=== PATIENT | female | born 1995 | race Caucasian/White ===

== ENCOUNTER 2023-05-18 07:15 | Emergency (ER) | payer OTHER, SELFPAY ==
[2023-05-18 07:19] VITALS: BP 111/72; PULSE 71; RESP 18; TEMP 37.3; O2SAT 99; BMI 27.5
--- NOTE | 2023-05-18 07:40 | ED.EYEPROB1 ---
HPI - Eye Problem General Chief complaint: Eye Problems Stated complaint: VISION PROBLEMS/SWOLLEN FACE Time Seen by Provider: 05/18/23 07:19 Source: patient Mode of arrival: walk-in Limitations: no limitations History of Present Illness HPI Narrative: 27-year-old female presents to the emergency department for swelling around both eyes. No injury. It started this morning when she awoke. She has not been on any new medications or used any new products such as soaps or detergents. No eye drainage. She doesn't have any rash on her body elsewhere and no itching. Related Data Previous Rx's Medication Instructions Recorded prednisone 10 mg tablet See Rx Instructions .Route 05/18/23 .COMPLEX #18 tabs Allergies Allergy/AdvReac Type Severity Reaction Status Date / Time No Known Drug Allergies Allergy Verified 05/18/23 07:26 Review of Systems ROS Narrative A ten point review of systems is negative except as noted above. Exam Narrative Exam Narrative: Nurses note and vital signs reviewed and patient is not hypoxic. General: The patient appears well and in no apparent distress. Patient is resting comfortably on cart. Skin: Warm, dry, no pallor noted. There is no rash noted. Head: Normocephalic, atraumatic Eye: Normal conjunctiva, no drainage, she has bilateral periorbital edema. There is no erythema or open area or drainage. Tongue is not swollen. Ears, Nose, Mouth, and Throat: oral mucosa is moist. Nares patent. Cardiovascular: Regular Rate and Rhythm Respiratory: Patient is in no distress, no accessory muscle use, lungs are clear to auscultation, no wheezing, rales or rhonchi Back: non-tender GI: soft and nontender Musculoskeletal: The patient has no evidence of calf tenderness, no pitting edema, symmetrical pulses noted bilaterally Neurological: A&O, normal speech Psychiatric: Cooperative Constitutional Vital Signs, click to edit/add: Last Vital Signs Temp 99.2 F 05/18/23 07:19 Pulse 71 05/18/23 07:19 Resp 18 05/18/23 07:19 BP 111/72 05/18/23 07:19 Pulse Ox 99 05/18/23 07:19 Course Vital Signs Vital signs: Vital Signs Temperature 99.2 F 05/18/23 07:19 Pulse Rate 71 05/18/23 07:19 Respiratory Rate 18 05/18/23 07:19 Blood Pressure 111/72 05/18/23 07:19 Pulse Oximetry 99 05/18/23 07:19 Temperature 99.2 F 05/18/23 07:19 Pulse Rate 71 05/18/23 07:19 Respiratory Rate 18 05/18/23 07:19 Blood Pressure 111/72 05/18/23 07:19 Pulse Oximetry 99 05/18/23 07:19 MDM - Eye Problem MDM Narrative Medical decision making narrative: the patient is given IM Solu-Medrol and prescribed prednisone. She was given an ice pack as well. Treatment diagnosis and follow-up were discussed with the patient. Differential Diagnosis Differential diagnosis: Likely conjunctivitis, periorbital cellulitis and other (ALLERGIC reaction) Discharge Plan Discharge Chief Complaint: Eye Problems Clinical Impression: Allergic reaction Patient Disposition: Home, Self-Care Time of Disposition Decision: 07:38 Condition: Good Mode of Transportation: Private Vehicle Prescriptions / Home Meds: New prednisone 10 mg tablet See Rx Instructions .ROUTE .COMPLEX Qty: 18 0RF Rx Instructions: 3 by mouth daily for three days then 2 by mouth daily for three days then 1 by mouth daily for three days Instructions: General Allergic Reaction (ED) Additional Instructions: Ice packs and [id number] Benadryl Stand Alone Forms: Portal Instructions Referrals: VANCE OWUSU [Primary Care Provider] - 1 week
[2023-05-18] MEDS: METHYLPREDNISOLONE SOD SUCC PF 125 MG/2 ML VIAL IM (07:55)
== END 2023-05-18 07:59 | disposition home or self-care (01) ==
PROVIDERS: Emergency Provider Emergency Medicine; PCP Family Medicine
DX: T78.40XA Allergy, unspecified, initial encounter (principal)
CPT/HCPCS: 96372; 99284; J2930

== ENCOUNTER 2023-07-02 15:36 | Outpatient (OUT) | payer OTHER, SELFPAY ==
--- NOTE | 2023-07-02 15:53 | US_ITS ---
[address] [address] Patient Name: FRANK GARCIA MRN: [id number] date: 1995 Sex: F Assigned Patient Location: LAB Current Patient Location: Accession/Order Number: [id number] Exam Date: 07/02/2023 16:15 Report Date: 07/03/2023 07:41 At the request of: BRITTANY GUTIERRES Procedure: US pelvis w/ transvaginal EXAMINATION: US pelvis w/ transvaginal HISTORY: polycystic ovarian syndrome E28.2 ; left oophorectomy COMPARISON: No relevant comparison available. TECHNIQUE: Transabdominal and/or transvaginal sonographic examination was performed as indicated by examination type. FINDINGS: UTERUS: Normal size and appearance. Uterus size: 7.9 x 3.6 x 4.9 cm ENDOMETRIUM: Normal homogeneous appearance. Endometrial thickness: 8 mm RIGHT OVARY: Contains a 1.8 cm dominant follicle/simple cyst and a 1.5 cm hemorrhagic cysts versus hypoechoic mass. Duplex Doppler demonstrates normal waveform and flow; resistive index 0.5. Ovary size: 4.3 x 2.6 x 3.3 cm LEFT OVARY: Oophorectomy CUL-DE-SAC: Small amount of free fluid, likely physiologic. BLADDER: Unremarkable. OTHER: None. US/US pelvis w/ transvaginal IMPRESSION: 1. Unremarkable uterus. 2. No acute or overtly suspicious findings of the right ovary. Contains a simple cyst and what is suspected to represent a 1.5 cm hemorrhagic cyst. 3. Left oophorectomy. No suspicious adnexal findings. Electronically authenticated by: AISLINN PRAKASH Date: 07/03/2023 07:41
[2023-07-02 16:00] LABS: Basophils Percent Auto 0.1 % (0.2-2.0); Eosinophils Percent Auto 0.1 % (0.9-7.0); Hematocrit 34.8 % (36.0-48.0); Hemoglobin 11.7 g/dL (12.0-16.0); Immature Granulocytes Abs Auto 0.02 10^3/uL (0.00-0.03); Immature Granulocytes Pct Auto 0.2 % (0.0-0.5); Lymphocytes Absolute Auto 2.4 10^3/uL (1.2-3.8); Lymphocytes Percent Auto 27.6 % (20.5-60.0); Mean Corpuscular HGB Conc 33.6 g/dL (29.9-35.2); Mean Corpuscular Hemoglobin 30.2 pg (26.7-34.0); Mean Corpuscular Volume 89.7 fL (81.0-99.0); Mean Platelet Volume 9.6 fL (9.5-13.5); Monocytes Absolute Auto 0.6 10^3/uL (0.3-0.8); Monocytes Percent Auto 7.1 % (1.7-12.0); Neutrophils Absolute Auto 5.7 10^3/uL (1.4-6.5); Neutrophils Percent Auto 64.9 % (43.0-75.0); Platelet Count 263 10^3/uL (150-450); Red Blood Count 3.88 10^6/uL (4.20-5.40); Red Cell Distribution Width 11.9 % (11.0-15.0); White Blood Count 8.7 10^3/uL (4.0-11.0)
[2023-07-02 16:39] LABS: Estimated Average Glucose 103 mg/dL; Glycohemoglobin A1C 5.2 % (4.5-6.2)
[2023-07-02 16:43] LABS: Free T4 0.83 ng/dL (0.76-1.46)
[2023-07-02 16:48] LABS: HCG Quantitative <1 mIU/mL; Thyroid Stimulating Hormone 1.636 uIU/mL (0.358-3.740)
[2023-07-04 04:07] LABS: FSH 2.5 mIU/mL (.); Luteinizing Hormone(LH) 7.3 mIU/mL (.)
[2023-07-07 04:09] LABS: Anti-Mullerian Hormone (AMH) 0.778 ng/mL (.)
[2023-07-07 14:08] LABS: DHEA, Serum 399 ng/dL (31-701)
== END 2023-07-02 15:37 | disposition home or self-care (01) ==
LOC: US 15:38 → LAB 15:41
PROVIDERS: PCP Family Medicine; Visit Provider Obstetrics & Gynecology
DX: E28.2 Polycystic ovarian syndrome (principal); E74.39 Other disorders of intestinal carbohydrate absorption; E34.9 Endocrine disorder, unspecified; N93.9 Abnormal uterine and vaginal bleeding, unspecified
CPT/HCPCS: 36415; 76830; 76856; 82397; 82626; 82627; 83001; 83002; 83036; 84439; 84443; 84702; 85025

== ENCOUNTER 2023-07-29 15:24 | Outpatient (OUT) | payer OTHER, SELFPAY ==
[2023-07-29 16:58] LABS: HCG Quantitative <1 mIU/mL
== END 2023-07-29 15:25 | disposition home or self-care (01) ==
LOC: LAB 15:24
PROVIDERS: PCP Family Medicine; Visit Provider Obstetrics & Gynecology
DX: E28.2 Polycystic ovarian syndrome (principal)
CPT/HCPCS: 36415; 84702

== ENCOUNTER 2023-08-25 09:01 | Outpatient (OUT) | payer OTHER, SELFPAY ==
--- OUTSIDE RECORDS SUMMARY | 2023-08-25 09:23 | XMS_ITS | CCD ---
Author Organization [facility] Care Team Providers Care Director Of Event Sales Name Role Phone RENO, DR CHUY Sarmiento Attending Unavailable DEFRANCE, DR WOODARD Primary Care Unavailable RENO, DR CHUY Sarmiento Admitting Unavailable KC, DR CHUY Sarmiento Consulting Unavailable Arias, Fercho Consulting Unavailable DEFRANCE, DR WOODARD Admitting Unavailable DEFRANCE, DR WOODARD Consulting Unavailable DEFRANCE, DR WOODARD Attending Unavailable STEENHOFF, RAMESH Attending Unavailable STEENHOFF, RAMESH Admitting Unavailable DEFRANCE, VANCE Primary Care Unavailable RENO, CHUY Referring Unavailable BHAVIK, BRITTANY Attending Unavailable Problems Active Problems Problem Classification Problem Date Documented Da te Episodic/Chronic Malaise and fatigue (4 sources) Weakness; Translations: [WEAKNESS] Onset: 07-20-2021 Episodic Unclassified (4 sources) CONTACT W/AND (SUSP) EXPOS COVID-19; Translations: [CONTACT W/AND (SUSP) EXPOS COVID-19] Onset: 01-12-2021 Past or Other Problems Problem Classification Problem Date Documented Da te Episodic/Chronic Unclassified (1 source) CONTACT W/AND (SUSP) EXPOS COVID-19; Translations: [CONTACT W/AND (SUSP) EXPOS COVID-19] Onset: 01-09-2021 Results Test Name Value Interpretation Reference Range Facil marianna APTTon 07-20-2021 aPTT Coag (Bld) [Time] 27.3 s Normal 25.0-35.0 [facility] Comment on above: Result Comment: ALL RESULTS MUST BE INTERPRETED WITH RESPECT TO BLOOD DRAWING ARTIFACT OR DILUTION ERROR OF ANTICOAGULANT AT THE TIME OF SAMPLING. THE APTT SHOULD NOT BE USED TO MONITOR UNFRACTIONATED HEPARIN THERAPY, THIS LABORATORY NO LONGER HAS AN ESTABLISHED THERAPEUTIC RANGE BASED ON THE APTT. IT IS RECOMMENDED THAT THE UFH - HEPARIN ASSAY (ANTI-XA ACTIVITY) BE USED FOR THIS PURPOSE. Performed By: #### 5 [id number], [id number] #### [facility] [address] [place] [address], [facility] BASIC METABOLIC PANELon 04-0 Calcium [Mass/Vol] 9.1 mg/dL Normal 8.6-10.3 [facility] Comment on above: Performed By: #### 0 0071, [id number] #### [facility] [address] [place] [address], [place] Chloride [Moles/Vol] 104 mmol/L Normal 98-107 [facility] Comment on above: Performed By: #### 0 0071, [id number] #### [facility] [address] [place] [address], [place] CO2 [Moles/Vol] 24 mmol/L Normal 21-31 [facility] Comment on above: Performed By: #### 0 0071, [id number] #### [facility] [address] [place] [address], [place] Creatinine [Mass/Vol] 0.52 mg/dL Low 0.60-1.20 [facility] Comment on above: Performed By: #### 0 0071, [id number] #### [facility] [address] [place] [id number], [place] GFR/1.73 sq M.predicted among blacks MDRD (S/P/Bld) [Vol rate/Area] mL/min/{1.73_m2} Normal >60 [facility] Comment on above: Performed By: #### 0 0071, [id number] #### [facility] [address] [place] [address], [place] GFR/1.73 sq M.predicted among non-blacks MDRD (S/P/Bld) [Vol rate/Area] mL/min/{1.73_m2} Normal >60 [facility] Comment on above: Performed By: #### 0 0071, [id number] #### [facility] [address] [place] [address], [facility] Glucose [Mass/Vol] 87 mg/dL Normal 70-100 [facility] Comment on above: Performed By: #### 0 0071, [id number] #### [facility] [address] [place] [address], [place] Potassium [Moles/Vol] 3.7 mmol/L Normal 3.5-5.1 [facility] Comment on above: Performed By: #### 0 0071, [id number] #### [facility] [address] [place] [address], [place] Sodium [Moles/Vol] 137 mmol/L Normal 136-145 [facility] Comment on above: Performed By: #### 0 0071, [id number] #### [facility] [address] [place] [address], [place] Urea nitrogen [Mass/Vol] 13 mg/dL Normal 7-25 [facility] Comment on above: Performed By: #### 0 0071, [id number] #### [facility] [address] [place] [address], [place] CBC AUTO DIFFon 07-20-2021 BASO # 0.0 103/ul Normal 0.0-0.1 [facility] Comment on above: Performed By: #### C BC #### [facility] [address] [place] [address] [address] Marilee Diaz Basophils/100 WBC (Bld) 0.2 % Normal 0.2-2.0 [facility] Comment on above: Performed By: #### C BC #### [facility] [address] [place] [address] [address] Marilee Diaz EO # 0.0 103/ul Normal 0.0-0.7 [facility] Comment on above: Performed By: #### C BC #### [facility] [address] [place] [address] [address] Marilee Diaz Eosinophils/100 WBC (Bld) 0.4 % Critically low 0.9-7.0 [facility] Comment on above: Performed By: #### C BC #### [facility] [address] [place] [address] Dr. Marilee Diaz Erythrocyte distribution width (RBC) [Ratio] 11.9 % Normal 11.0-15.0 [facility] Comment on above: Performed By: #### C BC #### [facility] [address] [place] [address] Dr. Marilee Diaz Hematocrit (Bld) [Volume fraction] 38.1 % Normal 36.0-48.0 [facility] Comment on above: Performed By: #### C BC #### [facility] [address] [place] [address] Dr. Marilee Diaz Hemoglobin (Bld) [Mass/Vol] 12.3 g/dL Normal 12.0-16.0 [facility] Comment on above: Performed By: #### C BC #### [facility] [address] [place] [address] Dr. Marilee Diaz IG # 0.02 10e3/ul Normal 0.00-0.03 [facility] Comment on above: Performed By: #### C BC #### [facility] [address] [place] [address] Dr. Marilee Diaz IG % 0.2 % Normal 0.0-0.5 [facility] Comment on above: Performed By: #### C BC #### [facility] [address] [place] [address] Dr. Marilee Diaz LYMPH # 2.7 103/ul Normal 1.2-3.8 [facility] Comment on above: Performed By: #### C BC #### [facility] [address] [place] [address] Dr. Marilee Diaz Lymphocytes/100 WBC (Bld) 31.8 % Normal 20.5-60.0 [facility] Comment on above: Performed By: #### C BC #### [facility] [address] [place] [address] Dr. Marilee Diaz MANUAL DIFF REQ NO Normal [facility] Comment on above: Performed By: #### C BC #### [facility] [address] [place] [address] Dr. Marilee Diaz MCH (RBC) [Entitic mass] 29.4 pg Normal 26.7-34.0 [facility] Comment on above: Performed By: #### C BC #### [facility] [address] [place] [address] Dr. Marilee Diaz MCHC (RBC) [Mass/Vol] 32.3 g/dL Normal 29.9-35.2 [facility] Comment on above: Performed By: #### C BC #### [facility] [address] [place] [address] Dr. Marilee Diaz MCV (RBC) [Entitic vol] 91.1 fL Normal 81.0-99.0 [facility] Comment on above: Performed By: #### C BC #### [facility] [address] [place] [address] Dr. Marilee Diaz MONO # 0.7 103/ul Normal 0.3-0.8 [facility] Comment on above: Performed By: #### C BC #### [facility] [address] [place] [address] Dr. Marilee Diaz Monocytes/100 WBC (Bld) 8.3 % Normal 1.7-12.0 [facility] Comment on above: Performed By: #### C BC #### [facility] [address] [place] [address] Dr. Marilee Diaz NEUT # 5.0 103/ul Normal 1.4-6.5 [facility] Comment on above: Performed By: #### C BC #### [facility] [address] [place] [address] Dr. Marilee Diaz Neutrophils/100 WBC (Bld) 59.1 % Normal 43.0-75.0 [facility] Comment on above: Performed By: #### C BC #### [facility] [address] [place] [address] Dr. Marilee Diaz Platelet mean volume (Bld) [Entitic vol] 9.7 fL Normal 9.5-13.5 [facility] Comment on above: Performed By: #### C BC #### [facility] [address] [place], [place] [address] Dr. Marilee Diaz PLT 290 103/ul Normal 150-450 [facility] Comment on above: Performed By: #### C BC #### [facility] [address] [place], [place] [address] Dr. Marilee Diaz RBC 4.18 106/ul Critically low 4.20-5.40 [facility] Comment on above: Performed By: #### C BC #### [facility] [address] [place], [place] [address] Dr. Marilee Diaz WBC 8.4 103/ul Normal 4.0-11.0 [facility] Comment on above: Performed By: #### C BC #### [facility] [address] [place], [place] [address] Dr. Marilee Diaz CBC COMPLETE BLOOD COUNTon 0 07-20-2021 Erythrocyte distribution width (RBC) [Ratio] 11.9 % Normal 11.5-15.0 [facility] Comment on above: Performed By: #### 5 0608 ####[facility] Hematocrit (Bld) [Volume fraction] 36.0 % Normal 36.0-45.0 [facility] Comment on above: Performed By: #### 5 0608 ####[facility] [place] [address], [facility] Hemoglobin (Bld) [Mass/Vol] 11.9 g/dL Low 12.0-15.0 [facility] Comment on above: Performed By: #### 5 0608 ####[facility] [place] [address], [facility] MCH (RBC) [Entitic mass] 29.7 pg Normal 27.0-33.0 [facility] Comment on above: Performed By: #### 5 0608 ####[facility] [place] [address], [facility] MCHC (RBC) [Mass/Vol] 33.1 g/dL Normal 32.0-35.0 [facility] Comment on above: Performed By: #### 5 0608 ####[place] [address] [address] MCV (RBC) [Entitic vol] 89.8 fL Normal 82.0-98.0 [facility] Comment on above: Performed By: #### 5 0608 ####[address] Nucleated RBC/100 WBC (Bld) [Ratio] 0 % Normal 0-0 [facility] Comment on above: Performed By: #### 5 0608 ####[address] PLAT CNT 281 10*3/uL Normal 150-400 [facility] Comment on above: Performed By: #### 5 0608 ####[address] RBC (Bld) [#/Vol] 4.01 10*6/uL Normal 3.80-5.00 [facility] Comment on above: Performed By: #### 5 0608 ####[address] WBC (Bld) [#/Vol] 6.83 10*3/uL Normal 4.00-10.60 [facility] Comment on above: Performed By: #### 5 0608 ####[address] HEAD WO CONon 07-20-2021 CT HEAD WO CON INDICATION: 26 years old; Female. Weakness. TECHNIQUE: CT Head (ax/cor/sag reformats). Ionizing radiation dose reduced via iterative reconstruction/FBP blend and body size kV/mA adjustment. Comparison: None FINDINGS: POSTOPERATIVE CHANGES: None. BRAIN PARENCHYMA: No hemorrhage, mass or acute infarct. White matter is normal for age. VENTRICLES/EXTRA-AXI AL SPACES: No hydrocephalus. SINUSES/MASTOIDS: No paranasal sinus disease. Mastoid air cells are clear. MSK: No skull fractures. OTHER: No hyperdense intraluminal thrombus is appreciated. IMPRESSION: 1. No acute intracranial abnormality. No hemorrhage or mass effect. Electronically authenticated by: FERCHO ARIAS Date: 2021-07-20 02:53 Normal [facility] CTA HEAD WO W CONon 07-21-19 22 CTA HEAD WO W CON CTA HEAD WO W CON, CTA NECK WO W CON INDICATION:26 years old; WEAKNESS TECHNIQUE: CT angiogram of the head and neck was performed. Coronal, sagittal and 3-D reformats were created and reviewed. IV contrast Omnipaque 350 100mL. w/o complications . Carotid stenosis measurements were made according to the NASCET criteria. Ionizing radiation dose reduced via iterative reconstruction/FBP blend and body size kV/mA adjustment. COMPARISON: Head CT dated 07/20/2021 at 2:36 AM. FINDINGS: NECK FINDINGS: AORTIC ARCH: Normal origin of the innominate, left common carotid and left subclavian arteries. ANTERIOR CIRCULATION: Common carotid arteries are patent. Carotid bifurcations have a normal appearance. Cervical ICA are patent bilaterally. POSTERIOR CIRCULATION: The V1, V2, and V3 segments of vertebral arteries are patent. There is a right dominant system. DEVELOPMENTAL ANOMALIES: None. OTHER: No thyroid nodule or adenopathy. HEAD BRAIN: Please see the report of the noncontrast head CT performed earlier. ANTERIOR CIRCULATION: There is patent appearance of the intrapetrous, intracavernous, supraclinoid ICA. Distal termini are patent. CASSIDY and MCA patent bilaterally. No stenosis is seen. No thrombus is seen. The distal distributions are symmetric bilaterally. POSTERIOR CIRCULATION: The V4 segments are bilaterally patent. PICA origin patent on the right. SCA patent bilaterally. Basilar tip is patent. There is patent origin of the right PERSONAL INVESTMENT ADVISER. 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 DEVELOPMENTAL ANOMALIES: takeoff of the left PERSONAL INVESTMENT ADVISER. OTHER: No intracranial hemorrhage, enhancing intracranial mass or acute infarct. IMPRESSION: 1. Intracranial and extracranial vessels are within normal limits. No stenosis, thrombus, dissection, or aneurysm. 2. No pathologic enhancement. If there is continued suspicion for intracranial pathology, then further evaluation with MRI including diffusion imaging would be appropriate. A telephone call regarding the findings in examination was made to and acknowledged by Dr. Kc in the emergency department at 4:07 AM on 07/20/2021. Electronically authenticated by: FERCHO ARIAS Date: 2021-07-20 04:07 Normal [facility] Covid-19 PCR (CVDTBH)on SARS-CoV-2 (COVID-19) RNA FRANK+probe Ql (Unsp spec) Not detected Normal NOT DETECTED [facility] Comment on above: Result Comment: This test is not yet approved or cleared by the [place] FDA. When there are no FDA-approved or cleared tests available, and other criteria are met, FDA can make tests available under an emergency access mechanism called an Emergency Use Authorization (EUA). The EUA for this test is supported by the [place] of Health and Human Service's (HHS's) declaration that circumstances exist to justify the emergency use of in vitro diagnostics for the detection and/or diagnosis of the virus that causes COVID-19. This EUA will remain in effect (meaning this test can be used) for the duration of the COVID-19 declaration justifying emergency of IVDs, unless it is terminated or revoked by FDA (after which the test may no longer be used). When diagnostic testing is negative, the possibility of a false negative should be considered in the context of a patient's recent exposures and the presence of clinical signs and symptoms consistent with SARS-CoV-2. Performed By: #### C VDTB #### [facility] [address] [place] [address] [address] Marilee Diaz [facility] 07-20-2021 Albumin [Mass/Vol] 4.3 g/dL Normal 3.5-5.7 [facility] Comment on above: Performed By: #### 0 0071, [id number] #### [facility] [address] [place] [address], [facility] ALKALINE PHOSPH 57 IU/L Normal 34-104 [facility] Comment on above: Performed By: #### 0 0071, 31669 #### [facility] [address] [place] [address], [facility] ALT [Catalytic activity/Vol] 12 U/L Normal 7-52 [facility] Comment on above: Performed By: #### 0 0071, 47794 #### [facility] [address] [place] [address], [place] AST [Catalytic activity/Vol] 13 U/L Normal 13-39 [facility] Comment on above: Performed By: #### 0 0071, 10338 #### [facility] [address] [place] [address], [place] Bilirubin [Mass/Vol] 0.3 mg/dL Normal 0.3-1.0 [facility] Comment on above: Performed By: #### 0 0071, 50150 #### [facility] [address] [place] [address], [facility] Bilirubin.direct [Mass/Vol] 0.1 mg/dL Normal 0.0-0.2 [facility] Comment on above: Performed By: #### 0 0071, 22961 #### [facility] [address] [place] [address], [facility] Protein [Mass/Vol] 6.5 g/dL Normal 6.0-8.3 [facility] Comment on above: Performed By: #### 0 0071, 94953 #### [facility] [address] [place] [address], [facility] MRI STROKE ALERT BRAIN WO CO NTRASTon 07-20-2021 MRI STROKE ALERT BRAIN WO CONTRAST [facility] Department of Radiology [address] [place] [address] Patient Name: NATASHA BRAMBILA : 1995 Sex: F Age: Race: White Pt. Location: [facility] Patient Status: E Ordered Date: 07/20/2021 6:05:00 AM Completed Date: 07/20/2021 07:02 AM Requesting Provider: GABRIELLA WOODRUFF Attending Provider: GABRIELLA WOODRUFF Report Copy To: Signs & Symptoms: Stroke (CVA) History: See Comments Comments: CVA Exam: MRI STROKE ALERT BRAIN WO CONTRAST 0MRI STROKE ALERT BRAIN WO CONTRAST 07/20/2021 7:02 AM CLINICAL INDICATIONS: Stroke (CVA) TECHNOLOGIST COMMENTS: c/o left face, arm, and leg numbness QUESTION FOR RADIOLOGIST: CVA PROTOCOL: The following pulse sequences were utilized when imaging the brain: sagittal T1, diffusion weighted imaging, axial T2 FLAIR, axial T2 fat-sat, axial T1, axial GRE. COMPARISON: None. FINDINGS: The ventricles are normal in size. There is no evidence of midline shift. There are no areas of abnormal signal to suggest presence of acute major vessel infarct, mass lesion, hemorrhage, or a developing process. IMPRESSION: Normal MRI brain. Electronically signed: Vance Jackson. Transcribed by: [email or web address], User Resident: Electronically Signed by: VANCE JACKSON @ 07/20/2021 08:18 AM Normal [facility] Comment on above: Order Comment: CVA POC GLUCOSE EDon 07-20-2021 Glucose [Mass/Vol] 90 mg/dL Normal 70-100 [facility] Comment on above: Performed By: #### 9 1690 #### [address] [place] [address], [facility] POC SARS COV2 ANTIGEN NEGATI VEon 07-20-2021 POC SARS COV2 ANTIGEN NEG Negative Normal NEGATIVE [facility] Comment on above: Result Comment: Nega tive results should be treated as presumptive and confirmation with a molecular assay, if necessary, for patient management, may be performed. Negative results do not rule out SARS-CoV-2 infection and not should be used as the sole basis for treatment or patient management decisions, including infection control decisions. Negative results should be considered in the context of a patient's recent exposures, history, and the presence of clinical signs and symptoms consistent with COVID-19. The Clarity COVID-19 Antigen Rapid Test Cassette is a rapid chromatographic immunoassay intended for the qualitative detection of the nucleocapsid protein antigen from SARS-CoV-2 in direct nasopharyngeal swab (LAB REP) specimens from individuals who are suspected of COVID-19 by their healthcare provider within the first six days of symptom onset. Testing is limited to laboratories certified under the Clinical Laboratory Improvement Amendments of 1988 (CLIA), 42 U.S.C. ???263a, that meet the requirements to perform moderate complexity, high complexity, or waived tests. This test is authorized for use at the Point of Care (POC), i.e., in patient care settings operating under a CLIA Certificate of Waiver, Certificate of Compliance, or Certificate of Accreditation. Performed By: #### 3 4 #### [facility] [address] POC SARS COV2 ANTIGEN NEG CANCELED Normal NEGATIVE [facility] Comment on above: Result Comment: The released value NEGATIVE was canceled by JOSE on 07/22/2021 12:28 Performed By: #### 3 2043 #### [facility] [address] POC URINE PREGNANCYon 2021 Beta HCG ( test) Ql (U) Negative Normal NEGATIVE [facility] Comment on above: Result Comment: Perf ormed in Emergency Department. Performed By: #### 8 [id number] ####[facility] [address] PORTABLE CHEST 1 VIEWon 04- PORTABLE CHEST 1 VIEW [facility] Department of Radiology [address] [place] [id number] Patient Name: NATASHA BRAMBILA : 1995 Sex: F Age: Race: White Pt. Location: [facility] Patient Status: E Ordered Date: 07/20/2021 6:05:00 AM Completed Date: 07/20/2021 06:29 AM Requesting Provider: GABRIELLA WOODRUFF Attending Provider: GABRIELLA WOODRUFF Report Copy To: Signs & Symptoms: stroke alert History: See Comments Comments: evaluate for Infiltrates Exam: PORTABLE CHEST 1 VIEW PORTABLE CHEST 1 VIEW 07/20/2021 6:29 AM CLINICAL INDICATIONS: stroke alert TECHNOLOGIST COMMENTS: stroke alert QUESTION FOR THE RADIOLOGIST: evaluate for Infiltrates PROTOCOL: AP(PA) view was obtained. COMPARISON: None FINDINGS: Cardiopericardial silhouette is normal. No focal consolidative airspace opacity, pneumothorax or pleural effusion. IMPRESSION: No acute pulmonary process. Approved by:Swapna Valadez07/20/2021 6:41 AM. I, Parul Reilly,have reviewed the image(s) and agree with the findings in this report. Electronically signed: Parul Reilly. Transcribed by: Tk, User Resident: SWAPNA QUIROGA Electronically Signed by: PARUL REILLY @ 07/20/2021 06:51 AM I personally read this/these film(s) with this resident Normal [facility] Comment on above: Order Comment: evalu ate for Infiltrates PROF 14(COMP METB)on 022 Albumin [Mass/Vol] 4.0 g/dL Normal 3.4-5.0 [facility] Comment on above: Performed By: #### C MP #### [facility] [address] [place] [address] Dr. Marilee Diaz Albumin/Globulin [Mass ratio] 1.1 {ratio} Normal [facility] Comment on above: Performed By: #### C MP #### [facility] [address] [place] [address] Dr. Marilee Diaz ALP [Catalytic activity/Vol] 83 U/L Normal 46-116 [facility] Comment on above: Performed By: #### C MP #### [facility] [address] [place] [address] Dr. Marilee Diaz ALT [Catalytic activity/Vol] 20 U/L Normal 14-59 [facility] Comment on above: Performed By: #### C MP #### [facility] [address] [place] [address] Dr. Marilee Diaz Anion gap [Moles/Vol] 12.5 mmol/L Normal [facility] Comment on above: Performed By: #### C MP #### [facility] [address] [place] [id number] Dr. Marilee Diaz AST [Catalytic activity/Vol] 12 U/L Critically low 15-37 [facility] Comment on above: Performed By: #### C MP #### [facility] [address] [place] [address] Dr. Marilee Diaz Bilirubin [Mass/Vol] 0.3 mg/dL Normal 0.2-1.3 [facility] Comment on above: Performed By: #### C MP #### [facility] [address] [place] [address] Dr. Marilee Diaz Calcium [Mass/Vol] 9.1 mg/dL Normal 8.5-10.1 [facility] Comment on above: Performed By: #### C MP #### [facility] [address] [place] [address] Dr. Marilee Diaz Chloride [Moles/Vol] 103 mmol/L Normal 98-107 [facility] Comment on above: Performed By: #### C MP #### [facility] [address] [address] [address] Marilee Diaz CO2 [Moles/Vol] 26.2 mmol/L Normal 22.0-30.0 [facility] Comment on above: Performed By: #### C MP #### [facility] [address] [address] [address] Marilee Diaz Creatinine [Mass/Vol] 0.63 mg/dL Normal 0.52-1.04 [facility] Comment on above: Performed By: #### C MP #### [facility] [address] [place] [address] Dr. Marilee Diaz EGFR-AF MOSOTHO >60 Normal >=60 [facility] Comment on above: Performed By: #### C MP #### [facility] [address] [address] [address] Marilee Diaz EGFR-NON AF [place] >60 Normal >=60 [facility] Comment on above: Performed By: #### C MP #### [facility] [address] [address] [address] Marilee Diaz Globulin (S) [Mass/Vol] 3.5 g/dL Normal [facility] Comment on above: Performed By: #### C MP #### [facility] [address] [address] [address] Marilee Diaz Glucose [Mass/Vol] 104 mg/dL Normal 74-106 [facility] Comment on above: Performed By: #### C MP #### [facility] [address] [place] [address] Dr. Marilee Diaz Potassium [Moles/Vol] 3.7 mmol/L Normal 3.4-5.0 [facility] Comment on above: Performed By: #### C MP #### [facility] [address] [address] [address] Marilee Diaz Protein [Mass/Vol] 7.5 g/dL Normal 6.1-8.2 [facility] Comment on above: Performed By: #### C MP #### [facility] [address] [address] [address] Marilee Diaz Sodium [Moles/Vol] 138 mmol/L Normal 137-145 [facility] Comment on above: Performed By: #### C MP #### [facility] [address] [address] [address] Marilee Diaz Urea nitrogen [Mass/Vol] 15.0 mg/dL Normal 7.0-18.0 [facility] Comment on above: Performed By: #### C MP #### [facility] [address] [address] [address] Marilee Diaz Urea nitrogen/Creatinine [Mass ratio] 23.8 mg/mg Normal [facility] Comment on above: Performed By: #### C MP #### [facility] [address] [address] [address] Marilee Diaz PROTHROMBIN TIMEon 2 INR Coag (PPP) [Relative time] 0.95 {INR} Normal 0.91-1.16 [facility] Comment on above: Result Comment: ACCC P RECOMMENDED INR FOR WARFARIN THERAPY ------ ------- CONDITION INR PROPHYLAXIS OF VENOUS THROMBOSIS 2-3 (HIGH-RISK SURGERY) TREATMENT OF VENOUS THROMBOSIS 2-3 TREATMENT OF PULMONARY EMBOLISM 2-3 PREVENTION OF SYSTEMIC EMBOLISM: 2-3 ACUTE MYOCARDIAL INFARCTION TISSUE HEART VALVES VALVULAR HEART DISEASE ATRIAL FIBRILLATION RECURRENT SYSTEMIC EMBOLISM MECHANICAL HEART VALVE 2.5-3.5 FROM: ORAL ANTICOAGULANTS. MECHANISM OF ACTION, CLINICAL EFFECTIVENESS, AND OPTIMAL THERAPEUTIC RANGE. CHEST 1995;108:231S-246S. Performed By: #### 5 [id number], [id number] #### [facility] [address] [place] [address], [facility] PT Coag (PPP) [Time] 12.7 s Normal 12.3-14.8 [facility] Comment on above: Result Comment: ALL RESULTS MUST BE INTERPRETED WITH RESPECT TO BLOOD DRAWING ARTIFACT OR DILUTION ERROR OF ANTICOAGULANT AT THE TIME OF SAMPLING. Performed By: #### 5 [id number], [id number] #### [facility] [address] [place] [address], [facility] PROTIMEon 07-20-2021 INR Coag (PPP) [Relative time] 0.94 {INR} Normal [facility] Comment on above: Performed By: #### P T, PTT #### [facility] [address] [place] [address] Dr. Marilee Diaz INR GUIDELINES SEE BELOW Normal [facility] Comment on above: Result Comment: POLA RED INR: 2.0 - 3.0 CONDITIONS NOT LISTED BELOW 2.5 - 3.5 FOR PROSTHETIC HEART VALVE REPLACEMENT 2.5 - 3.5 RECURRENT THROMBOSIS Performed By: #### P T, PTT #### [facility] [address] [place] [address] Dr. Marilee Diaz PT Coag (PPP) [Time] 10.2 s Normal 9.0-11.6 [facility] Comment on above: Performed By: #### P T, PTT #### [facility] [address] [place] [address] Dr. Marilee Diaz PTTon 07-20-2021 aPTT Coag (Bld) [Time] 26.3 s Normal 22.3-36.2 [facility] Comment on above: Performed By: #### P T, PTT #### [facility] [address] [place] [address] Dr. Marilee Diaz [facility] SARS-CoV-2 (COVID-19) RNA FRANK+probe Ql (Unsp spec) Not detected Normal NOT DETECTED [facility] Comment on above: Result Comment: This test is not yet approved or cleared by the [place] FDA. When there are no FDA-approved or cleared tests available, and other criteria are met, FDA can make tests available under an emergency access mechanism called an Emergency Use Authorization (EUA). The EUA for this test is supported by the Branch Service Leader of Health and Human Service's (HHS's) declaration that circumstances exist to justify the emergency use of in vitro diagnostics for the detection and/or diagnosis of the virus that causes COVID-19. This EUA will remain in effect (meaning this test can be used) for the duration of the COVID-19 declaration justifying emergency of IVDs, unless it is terminated or revoked by FDA (after which the test may no longer be used). When diagnostic testing is negative, the possibility of a false negative should be considered in the context of a patient's recent exposures and the presence of clinical signs and symptoms consistent with SARS-CoV-2. Performed By: #### C [facility] #### [facility] [address] [place] [address] Dr. Marilee Diaz Encounters Encounter Date Encounter Type Care Provider Facility Start: 07-01-2023 End: 07-01-2023 ambulatory BRITTANY GUTIERRES Not Available Start: 07-20-2021 End: 07-20-2021 Emergency department patient visit RAMESH PHAM Facility:[facility] Start: 07-20-2021 End: 07-20-[address] CHUY KC Facility: Start: 01-09-2021 End: 01-09-[address] VANCE OWUSU Facility: Payers Date Payer Category Payer Private Health Insurance [id number] 1995 Unknown [id number] 1995 Unknown [id number] [id number] 1995 Unknown [id number] [id number] 1995 Unknown [id number] 1959 Unknown [id number] Discharge summary note 07-31-2021 Note Date & Type Note Facility 07-31-2021 Note MR#: [id number] [facility] Pt. 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 CONSULTATIONS: Neurology/Stroke Service. HOSPITAL COURSE: A 26-year-old female presented to [facility] Emergency Department as a hospital transfer from [facility] after being accepted by Dr. Drummond from Stroke Service. The patient has a workup for possible stroke with chief complaint of left-sided pain and associated numbness and headache with intermittent dizziness. Last known well at 2300 hours on 07/19/21. Workup in the ED includes CT head and MRI of the brain, both negative for acute bleeding or infarct. GCS of 15 with NIH 4 in [facility] Emergency Department. Labs unremarkable. Patient received fentanyl for severe headache prior to examination. The patient is drowsy during examination but family reporting that patient's symptoms started at 2300 hours on 07/19 evening. She woke up to use the restroom and began crying from pain in her left arm and left hip and leg with associated numbness. Denies any prior history of seizures, strokes, clotting disorders, bleeding, hypertension, or heart disease. The patient is not on control and is a nonsmoker. No changes in recent medications. Stroke Service evaluated the patient in the emergency department and the patient received a dose of 125 mg of IV Solu-Medrol as well as IV magnesium for treatment of her migraine. Symptoms improved after intervention. She is able to tolerate food and able to ambulate and use restroom without assistance. Clearance for discharge later that evening per Neurology Team. DISCHARGE CONDITION: Stable. DISCHARGE INSTRUCTIONS: The patient is recommended to take 500 mg of magnesium daily to prevent migraines as well as 81 mg of aspirin daily. Recommending the patient to follow up with Cardiology, Dr. Reynolds at [facility]. The patient to set up a followup appointment as well as recommending a AUGUSTINE as outpatient. DISCHARGE MEDICATIONS: See list. Total time of discharge 25 minutes. Electronically Signed by: Francisco Javier Laughlin MD 08/01/2021 04:55 P Francisco Javier Laughlin MD I personally saw this patient on the day of the encounter, performed the burgos portion(s) of the service and participated in the management and confirm the resident's documentation. Please note there may be an additional personal documentation from [place]. Date Dict: 07/31/2021/08:19 P/Danyelle Lambert, WALL ATTENDANT Date Trans: 07/31/2021 08:55 P/mmo [id number] cc: Vance Owusu M.D. [address] [facility] [id number] Chuy Kc M.D. E R Physican...do Not Send [address] [facility] [address] [facility] Summary Purpose Family History No Family History Records FoundNo Family History Records FoundNo Family History Records Found Advance Directives No Advanced Directives Records FoundNo Advanced Directives Records FoundNo Advanced Directives Records Found Additional Source Comments INFORMATION SOURCE (unrecogn ized section and content) DATE CREATED AUTHOR 08/02/2021 [facility] DATE CREATED AUTHOR AUTHOR'S ORGANIZ ATION 08/02/2021 [facility] DATE CREATED AUTHOR AUTHOR'S ORGANIZ ATION 07/02/2023 [facility] EPIC FOR RECORDS PERTAINING TO PATIENTS WHO ARE OR HAVE BEEN ENROLLED IN A CHEMICAL DEPENDENCY/SUBSTANCEABUSE PROGRAM, SOME INFORMATION MAY BE OMITTED. This clinical summary was aggregated from multiple sources. Caution should be exercised in using it in the provision of clinical care. This summary normalizes information from multiple sources, and as a consequence, information in this document may materially change the coding, format and clinical context of patient data. In addition, data may be omitted in some cases. CLINICAL DECISIONS SHOULD BE BASED ON THE PRIMARY CLINICAL RECORDS. [employer] provides no warranty or guarantee of the accuracy or completeness of information in this document.
[2023-08-25 10:07] LABS: HCG Quantitative <1 mIU/mL
== END 2023-08-25 09:02 | disposition home or self-care (01) ==
LOC: LAB 09:04
PROVIDERS: PCP Family Medicine; Visit Provider Obstetrics & Gynecology
DX: E28.2 Polycystic ovarian syndrome (principal)
CPT/HCPCS: 36415; 84702

== ENCOUNTER 2023-09-22 09:37 | Outpatient (OUT) | payer OTHER, SELFPAY ==
--- OUTSIDE RECORDS SUMMARY | 2023-09-22 09:44 | XMS_ITS | CCD ---
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 Name Role Phone DR CHUY KC Attending Unavailable DEFRANCE, DR WOODARD Primary Care Unavailable RENO, DR CHUY Sarmiento Admitting Unavailable KC, DR CHUY Sarmiento Consulting Unavailable Arias, Fercho Consulting Unavailable DEFRANCE, DR WOODARD Admitting Unavailable DEFRANCE, DR WOODARD Consulting Unavailable DEFRANCE, DR WOODARD Attending Unavailable STEENHOFF, RAMESH Attending Unavailable STEENHOFF, RAMESH Admitting Unavailable DEFRANCE, VANCE Primary Care Unavailable RENO, CHUY Referring Unavailable BHAVIKBRITTANY Attending Unavailable Problems Active Problems Problem Classification [...] (Bld) [Time] 27.3 s Normal 25.0-35.0 [facility] Comment on above: Result Comment: ALL RESULTS [...] THIS PURPOSE. Performed By: #### 5 6101, 10643 #### [facility] [address] [place] [address], [place] BASIC METABOLIC PANELon 04-0 Calcium [Mass/Vol] 9.1 mg/dL Normal 8.6-10.3 [facility] Comment on above: Performed By: #### 0 0071, 75932 #### [facility] [address] [place] [address], [place] Chloride [Moles/Vol] 104 mmol/L Normal 98-107 [facility] Comment on above: Performed By: #### 0 0071, 64652 #### [facility] [address] [place] [address], [place] CO2 [Moles/Vol] 24 mmol/L Normal 21-31 [facility] Comment on above: Performed By: #### 0 0071, 66053 #### [facility] [address] [place] [address], [place] Creatinine [Mass/Vol] 0.52 mg/dL Low 0.60-1.20 [facility] Comment on above: Performed By: #### 0 0071, 35631 #### [facility] [address] [place] [address], [place] GFR/1.73 sq M.predicted among blacks MDRD (S/P/Bld) [Vol rate/Area] mL/min/{1.73_m2} Normal >60 [facility] Comment on above: Performed By: #### 0 0071, 85563 #### [facility] [address] [place] [address], [place] GFR/1.73 sq M.predicted among non-blacks MDRD (S/P/Bld) [Vol rate/Area] mL/min/{1.73_m2} Normal >60 [facility] Comment on above: Performed By: #### 0 0071, 47100 #### [facility] [address] [place] [address], [facility] Glucose [Mass/Vol] 87 mg/dL Normal 70-100 [facility] Comment on above: Performed By: #### 0 0071, 77686 #### [facility] [address] [place] [address], [facility] Potassium [Moles/Vol] 3.7 mmol/L Normal 3.5-5.1 [facility] Comment on above: Performed By: #### 0 0071, 91579 #### [facility] [address] [place] [address], [place] Sodium [Moles/Vol] 137 mmol/L Normal 136-145 [facility] Comment on above: Performed By: #### 0 0071, 44119 #### [facility] [address] [place] [address], [facility] Urea nitrogen [Mass/Vol] 13 mg/dL Normal 7-25 [facility] Comment on above: Performed By: #### 0 0071, 00466 #### [facility] [address] [place] [address], [facility] CBC AUTO DIFFon 07-20-2021 BASO # 0.0 103/ul Normal 0.0-0.1 [facility] Comment on above: Performed By: #### C BC #### [facility] [address] [address] [address] Marilee Diaz Basophils/100 WBC (Bld) 0.2 % Normal 0.2-2.0 [facility] Comment on above: Performed By: #### C BC #### [facility] [address] [address] [address] Marilee Diaz EO # 0.0 103/ul Normal 0.0-0.7 [facility] Comment on above: Performed By: #### C BC #### [facility] [address] [address] [address] Marilee Diaz Eosinophils/100 WBC (Bld) 0.4 % Critically low 0.9-7.0 [facility] Comment on above: Performed By: #### C BC #### [facility] [address] [place] [address] Dr. Marilee Diaz Erythrocyte distribution width (RBC) [Ratio] 11.9 % Normal 11.0-15.0 [facility] Comment on above: Performed By: #### C BC #### [facility] [address] [place] [address] Dr. Marilee Diaz Hematocrit (Bld) [Volume fraction] 38.1 % Normal 36.0-48.0 [facility] Comment on above: Performed By: #### C BC #### [facility] [address] [place] [address] Dr. Marilee Diaz Hemoglobin (Bld) [Mass/Vol] 12.3 g/dL Normal 12.0-16.0 [facility] Comment on above: Performed By: #### C BC #### [facility] [address] [place] [address] Dr. Marilee Diaz IG # 0.02 10e3/ul Normal 0.00-0.03 [facility] Comment on above: Performed By: #### C BC #### [facility] [address] [place] [address] Dr. Marilee Diaz IG % 0.2 % Normal 0.0-0.5 [facility] Comment on above: Performed By: #### C BC #### [facility] [address] [place] [address] Dr. Marilee Diaz LYMPH # 2.7 103/ul Normal 1.2-3.8 [facility] Comment on above: Performed By: #### C BC #### [facility] [address] [place] [address] Dr. Marilee Diaz Lymphocytes/100 WBC (Bld) 31.8 % Normal 20.5-60.0 [facility] Comment on above: Performed By: #### C BC #### [facility] [address] [place] [address] Dr. Marilee Diaz MANUAL DIFF REQ NO Normal [facility] Comment on above: Performed By: #### C BC #### [facility] [address] [address] [address] Marilee Diaz MCH (RBC) [Entitic mass] 29.4 pg Normal 26.7-34.0 [facility] Comment on above: Performed By: #### C BC #### [facility] [address] [place] [address] Dr. Marilee Diaz MCHC (RBC) [Mass/Vol] 32.3 g/dL Normal 29.9-35.2 [facility] Comment on above: Performed By: #### C BC #### [facility] [address] [place] [address] Dr. Marilee Diaz MCV (RBC) [Entitic vol] 91.1 fL Normal 81.0-99.0 [facility] Comment on above: Performed By: #### C BC #### [facility] [address] [place] [address] Dr. Marilee Diaz MONO # 0.7 103/ul Normal 0.3-0.8 [facility] Comment on above: Performed By: #### C BC #### [facility] [address] [place] [address] Dr. Marilee Diaz Monocytes/100 WBC (Bld) 8.3 % Normal 1.7-12.0 [facility] Comment on above: Performed By: #### C BC #### [facility] [address] [place] [address] Dr. Marilee Diaz NEUT # 5.0 103/ul Normal 1.4-6.5 [facility] Comment on above: Performed By: #### C BC #### [facility] [address] [place] [address] Dr. Marilee Diaz Neutrophils/100 WBC (Bld) 59.1 % Normal 43.0-75.0 [facility] Comment on above: Performed By: #### C BC #### [facility] [address] [place] [address] Dr. Marilee Diaz Platelet mean volume (Bld) [Entitic vol] 9.7 fL Normal 9.5-13.5 [facility] Comment on above: Performed By: #### C BC #### [facility] [address] [place], [place] [address] Dr. Marilee Diaz PLT 290 103/ul Normal 150-450 [facility] Comment on above: Performed By: #### C BC #### [facility] [address] [place], [place] [address] Dr. Marilee Diaz RBC 4.18 106/ul Critically low 4.20-5.40 [facility] Comment on above: Performed By: #### C BC #### [facility] [address] [place], [place] [address] Dr. Marilee Diaz WBC 8.4 103/ul Normal 4.0-11.0 [facility] Comment on above: Performed By: #### C BC #### [facility] [address] [place], [place] [address] Dr. Marilee Diaz CBC COMPLETE BLOOD COUNTon 0 07-20-2021 Erythrocyte distribution width (RBC) [Ratio] 11.9 % Normal 11.5-15.0 [facility] Comment on above: Performed By: #### 5 0608 ####[facility] Hematocrit (Bld) [Volume fraction] 36.0 % Normal 36.0-45.0 [facility] Comment on above: Performed By: #### 5 0608 ####[facility] [place] [address], [facility] Hemoglobin (Bld) [Mass/Vol] 11.9 g/dL Low 12.0-15.0 [facility] Comment on above: Performed By: #### 5 0608 ####[facility] [place] [address], [facility] MCH (RBC) [Entitic mass] 29.7 pg Normal 27.0-33.0 [facility] Comment on above: Performed By: #### 5 0608 ####[facility] [place] [id number], [place] MCHC (RBC) [Mass/Vol] 33.1 g/dL Normal 32.0-35.0 [facility] Comment on above: Performed By: #### 5 0608 ####[address] MCV (RBC) [Entitic vol] 89.8 fL Normal 82.0-98.0 [facility] Comment on above: Performed By: #### 5 0608 ####[place] [address] [address] Nucleated RBC/100 WBC (Bld) [Ratio] 0 % Normal 0-0 [facility] Comment on above: Performed By: #### 5 0608 ####[address] PLAT CNT 281 10*3/uL Normal 150-400 [facility] Comment on above: Performed By: #### 5 0608 ####[address] RBC (Bld) [#/Vol] 4.01 10*6/uL Normal 3.80-5.00 [facility] Comment on above: Performed By: #### 5 0608 ####[address] WBC (Bld) [#/Vol] 6.83 10*3/uL Normal 4.00-10.60 [facility] Comment on above: Performed By: #### 5 0608 ####[address] HEAD WO CONon 07-20-2021 CT [...] by: FERCHO ARIAS Date: 2021-07-20 02:53 Normal [facility] CTA HEAD WO W CONon 07-21-19 22 [...] There is patent origin of the right NURSE NAVIGATOR. 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 DEVELOPMENTAL ANOMALIES: takeoff of the left NURSE NAVIGATOR. OTHER: No intracranial hemorrhage, enhancing intracranial mass [...] FERCHO ARIAS Date: 2021-07-20 04:07 Normal [facility] Covid-19 PCR (CVDTB[facility])on SARS-CoV-2 (COVID-19) RNA FRANK+probe Ql (Unsp spec) Not detected Normal NOT DETECTED [facility] Comment on above: Result Comment: This test is not yet approved or cleared by the [place] FDA. When there are no FDA-approved or cleared tests available, and other criteria are met, FDA can make tests available under an emergency access mechanism called an Emergency Use Authorization (EUA). The EUA for this test is supported by the [place] of Health and Human Service's (HHS's) declaration [...] consistent with SARS-CoV-2. Performed By: #### [facility] #### [facility] [address] [address] [address] Marilee Diaz [facility] 07-20-2021 Albumin [Mass/Vol] 4.3 g/dL Normal 3.5-5.7 [facility] Comment on above: Performed By: #### 0 0071, 13841 #### [facility] [address] [place] [address], [facility] ALKALINE PHOSPH 57 IU/L Normal 34-104 [facility] Comment on above: Performed By: #### 0 0071, 11534 #### [facility] [address] [place] [address], [facility] ALT [Catalytic activity/Vol] 12 U/L Normal 7-52 [facility] Comment on above: Performed By: #### 0 0071, 49824 #### [facility] [address] [place] [address], [place] AST [Catalytic activity/Vol] 13 U/L Normal 13-39 [facility] Comment on above: Performed By: #### 0 0071, 64308 #### [facility] [address] [place] [address], [facility] Bilirubin [Mass/Vol] 0.3 mg/dL Normal 0.3-1.0 [facility] Comment on above: Performed By: #### 0 0071, 68995 #### [facility] [address] [place] [address], [facility] Bilirubin.direct [Mass/Vol] 0.1 mg/dL Normal 0.0-0.2 [facility] Comment on above: Performed By: #### 0 0071, 79502 #### [facility] [address] [place] [address], [facility] Protein [Mass/Vol] 6.5 g/dL Normal 6.0-8.3 [facility] Comment on above: Performed By: #### 0 0071, 55869 #### [facility] [address] [facility] [place] [address], [facility] MRI STROKE ALERT BRAIN WO CO NTRASTon 07-20-2021 MRI STROKE ALERT BRAIN WO CONTRAST [facility] Department of Radiology [address] [place] [address] Patient Name: NATASHA BRAMBILA : 1995 Sex: F Age: Race: White Pt. Location: [facility] Patient Status: E Ordered Date: 07/20/2021 [...] brain. Electronically signed: Vance Jackson. Transcribed by: [email or web address], User Resident: Electronically Signed by: VANCE JACKSON @ 07/20/2021 08:18 AM Normal [facility] Comment on above: Order Comment: CVA POC GLUCOSE EDon 07-20-2021 Glucose [Mass/Vol] 90 mg/dL Normal 70-100 [facility] Comment on above: Performed By: #### 9 1690 #### [facility] [address] [place] [address], [facility] POC SARS COV2 ANTIGEN NEGATI VEon 07-20-2021 POC SARS COV2 ANTIGEN NEG Negative Normal NEGATIVE [facility] Comment on above: Result Comment: Nega tive [...] antigen from SARS-CoV-2 in direct nasopharyngeal swab (VAMP PRESSER) specimens from individuals who are suspected of [...] Certificate of Accreditation. Performed By: #### 3 2043 #### [facility] [address] [facility]. [address] POC SARS COV2 ANTIGEN NEG CANCELED Normal NEGATIVE [facility] Comment on above: Result Comment: The released value NEGATIVE was canceled by JOSE on 07/22/2021 12:28 Performed By: #### 3 2043 #### [facility] [address] [facility]. [address] POC URINE PREGNANCYon 2021 Beta HCG ( test) Ql (U) Negative Normal NEGATIVE [facility] Comment on above: Result Comment: Perf ormed in Emergency Department. Performed By: #### 8 4140 ####[facility] [facility] [place] [address], [facility] PORTABLE CHEST 1 VIEWon PORTABLE CHEST 1 VIEW [facility] Department of Radiology [address] [place] [id number] Patient Name: NATASHA BRAMBILA : 1995 Sex: F Age: Race: White Pt. Location: [facility] Patient Status: E Ordered Date: 07/20/2021 [...] report. Electronically signed: Parul Reilly. Transcribed by: [email or web address], User Resident: SWAPNA QUIROGA Electronically Signed by: PARUL REILLY @ 07/20/2021 06:51 AM I personally read this/these film(s) with this resident Normal [facility] Comment on above: Order Comment: evalu ate for Infiltrates PROF 14(COMP METB)on 022 Albumin [Mass/Vol] 4.0 g/dL Normal 3.4-5.0 [facility] Comment on above: Performed By: #### C MP #### [facility] [address] [address] [address] Marilee Diaz Albumin/Globulin [Mass ratio] 1.1 {ratio} Normal [facility] Comment on above: Performed By: #### C MP #### [facility] [address] [place] [address] Dr. Marilee Diaz ALP [Catalytic activity/Vol] 83 U/L Normal 46-116 [facility] Comment on above: Performed By: #### C MP #### [facility] [address] [place] [address] Dr. Marilee Diaz ALT [Catalytic activity/Vol] 20 U/L Normal 14-59 [facility] Comment on above: Performed By: #### C MP #### [facility] [address] [address] [address] Marilee Diaz Anion gap [Moles/Vol] 12.5 mmol/L Normal [facility] Comment on above: Performed By: #### C MP #### [facility] [address] [place] [address] Dr. Marilee Diaz AST [Catalytic activity/Vol] 12 U/L Critically low 15-37 [facility] Comment on above: Performed By: #### C MP #### [facility] [address] [address] [address] Marilee Diaz Bilirubin [Mass/Vol] 0.3 mg/dL Normal 0.2-1.3 [facility] Comment on above: Performed By: #### C MP #### [facility] [address] [place] [address] Dr. Marilee Diaz Calcium [Mass/Vol] 9.1 mg/dL Normal 8.5-10.1 [facility] Comment on above: Performed By: #### C MP #### [facility] [address] [place] [address] Dr. Marilee Diaz Chloride [Moles/Vol] 103 mmol/L Normal 98-107 [facility] Comment on above: Performed By: #### C MP #### [facility] [address] [address] [address] Marilee Diaz CO2 [Moles/Vol] 26.2 mmol/L Normal 22.0-30.0 [facility] Comment on above: Performed By: #### C MP #### [facility] [address] [address] [address] Marilee Diaz Creatinine [Mass/Vol] 0.63 mg/dL Normal 0.52-1.04 [facility] Comment on above: Performed By: #### C MP #### [facility] [address] [address] [address] Marilee Diaz EGFR-AF ISRAELI >60 Normal >=60 [facility] Comment on above: Performed By: #### C MP #### [facility] [address] [address] [address] Marilee Diaz EGFR-NON AF ISRAELI >60 Normal >=60 [facility] Comment on above: Performed By: #### C MP #### [facility] [address] [address] [address] Marilee Diaz Globulin (S) [Mass/Vol] 3.5 g/dL Normal [facility] Comment on above: Performed By: #### C MP #### [facility] [address] [address] [address] Marilee Diaz Glucose [Mass/Vol] 104 mg/dL Normal 74-106 [facility] Comment on above: Performed By: #### C MP #### [facility] [address] [address] [address] Marilee Diaz Potassium [Moles/Vol] 3.7 mmol/L Normal 3.4-5.0 [facility] Comment on above: Performed By: #### C MP #### [facility] [address] [place] [address] Dr. Marilee Diaz Protein [Mass/Vol] 7.5 g/dL Normal 6.1-8.2 [facility] Comment on above: Performed By: #### C MP #### [facility] [address] [address] [address] Marilee Diaz Sodium [Moles/Vol] 138 mmol/L Normal 137-145 [facility] Comment on above: Performed By: #### C MP #### [facility] [address] [place], [place] [address] Dr. Marilee Diaz Urea nitrogen [Mass/Vol] 15.0 mg/dL Normal 7.0-18.0 [facility] Comment on above: Performed By: #### C MP #### [facility] [address] [address] [address] Marilee Diaz Urea nitrogen/Creatinine [Mass ratio] 23.8 mg/mg Normal [facility] Comment on above: Performed By: #### C MP #### [facility] [address] [address] [address] Marilee Diaz PROTHROMBIN TIMEon 2 INR Coag (PPP) [Relative time] 0.95 {INR} Normal 0.91-1.16 [facility] Comment on above: Result Comment: ACCC [...] RANGE. CHEST 1995;108:[id number]. Performed By: #### 5 6101, 66844 #### [facility] [address] [place] [address], [facility] PT Coag (PPP) [Time] 12.7 s Normal 12.3-14.8 [facility] Comment on above: Result Comment: ALL RESULTS MUST BE INTERPRETED WITH RESPECT TO BLOOD DRAWING ARTIFACT OR DILUTION ERROR OF ANTICOAGULANT AT THE TIME OF SAMPLING. Performed By: #### 5 6101, 62715 #### [facility] [address] [place] [address], [place] PROTIMEon 07-20-2021 INR Coag (PPP) [Relative time] 0.94 {INR} Normal [facility] Comment on above: Performed By: #### P T, PTT #### [facility] [address] [place] [address] Dr. Marilee Diaz INR GUIDELINES SEE BELOW Normal [facility] Comment on above: Result Comment: POLA RED INR: 2.0 - 3.0 CONDITIONS NOT LISTED BELOW 2.5 - 3.5 FOR PROSTHETIC HEART VALVE REPLACEMENT 2.5 - 3.5 RECURRENT THROMBOSIS Performed By: #### P T, PTT #### [facility] [address] [place] [address] Dr. Marilee Diaz PT Coag (PPP) [Time] 10.2 s Normal 9.0-11.6 [facility] Comment on above: Performed By: #### P T, PTT #### [facility] [address] [place] [address] Dr. Marilee Diaz PTTon 07-20-2021 aPTT Coag (Bld) [Time] 26.3 s Normal 22.3-36.2 [facility] Comment on above: Performed By: #### P T, PTT #### [facility] [address] [place] [address] Dr. Marilee Diaz Covid-19 PCR ([facility])on 12-21 SARS-CoV-2 (COVID-19) RNA FRANK+probe Ql (Unsp spec) Not detected Normal NOT DETECTED [facility] Comment on above: Result Comment: This test is not yet approved or cleared by the [place] FDA. When there are no FDA-approved or cleared tests available, and other criteria are met, FDA can make tests available under an emergency access mechanism called an Emergency Use Authorization (EUA). The EUA for this test is supported by the [place] of Health and Human Service's (HHS's) declaration [...] consistent with SARS-CoV-2. Performed By: #### C [facility] #### [facility] [address] [place] [address] Dr. Marilee Diaz Encounters Encounter Date Encounter Type Care Provider Facility Start: 07-01-2023 End: 07-01-2023 ambulatory BRITTANY GUTIERRES Not Available Start: 07-20-2021 End: 07-20-2021 Emergency department patient visit RAMESH PHAM Facility:[facility] Start: 07-20-2021 End: 07-20-[address] CHUY KC Facility: Start: 01-09-2021 End: 01-09-[address] VANCE OWUSU Facility: Payers Date Payer Category Payer Private Health Insurance [id number] 1995 Unknown [id number] 1995 Unknown [id number] [id number] [id number] 1995 Unknown [id number] 1995 Unknown [id number] 1959 Unknown [id number] Discharge summary note 07-31-2021 Note Date & Type Note Facility 07-31-2021 Note MR#: [id number] Pt. 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 CONSULTATIONS: Neurology/Stroke Service. HOSPITAL COURSE: A 26-year-old female presented to [facility] Emergency Department as a hospital transfer from [facility] after being accepted by Dr. [...] GCS of 15 with NIH 4 in [facility] Emergency Department. Labs unremarkable. Patient received fentanyl [...] follow up with Cardiology, Dr. Reynolds at [facility]. The patient to set up a [...] may be an additional personal documentation from nm. Date Dict: 07/31/2021/08:19 P/Danyelle Lambert, [employer] Date Trans: 07/31/2021 08:55 P/mmo [id number] cc: Vance Owusu M.D. [address] [facility] [id number] Chuy Kc M.D. E R Physican...do Not Send [address] [facility] [address] [facility] Summary Purpose Family History No Family History Records FoundNo Family History Records FoundNo Family History Records Found Advance Directives No Advanced Directives Records FoundNo Advanced Directives Records FoundNo Advanced Directives Records Found Additional Source Comments INFORMATION SOURCE (unrecogn ized section and content) DATE CREATED AUTHOR 08/02/2021 [facility] DATE CREATED AUTHOR AUTHOR'S ORGANIZ ATION 08/02/2021 [facility] DATE CREATED AUTHOR AUTHOR'S ORGANIZ ATION 07/02/2023 [facility] EPIC FOR RECORDS PERTAINING TO [...] BE BASED ON THE PRIMARY CLINICAL [email or web address] provides no warranty or guarantee of the accuracy or completeness of information in this [email or web address]
[2023-09-23 04:07] LABS: Progesterone 19.4 ng/mL (.)
== END 2023-09-22 09:38 | disposition home or self-care (01) ==
LOC: LAB 09:39
PROVIDERS: PCP Family Medicine; Visit Provider Obstetrics & Gynecology
DX: N97.0 Female infertility associated with anovulation (principal)
CPT/HCPCS: 36415; 84144

== ENCOUNTER 2023-11-03 20:57 | Outpatient (REF) | payer OTHER, SELFPAY ==
--- OUTSIDE RECORDS SUMMARY | 2023-11-03 21:07 | XMS_ITS ---
Patient Summarization (C-CDA 2.1 CCD) Created on: November 03, 2023 RADHA NATASHA~RADHA MARIE : 1995 Sex: Female Author Organization Sample organization Care Team Providers Care Tube Mounter Name Role Phone RENO, DR CHUY Sarmiento Attending Unavailable DEFRANCE, DR WOODARD Primary Care Unavailable RENO, DR CHUY Sarmiento Admitting Unavailable RENO, DR CHUY Sarmiento Consulting Unavailable Arias, Fercho Consulting Unavailable MICHELERANCE, DR WOODARD Admitting Unavailable FRANCOISE, DR WOODARD Consulting Unavailable DEFRANCE, DR WOODARD Attending Unavailable STEENHOFF, RAMESH Attending Unavailable STEENHOFF, RAMESH Admitting Unavailable DEFRANCE, VANCE Primary Care Unavailable RENO, CHUY Referring Unavailable BHAVIK, BRITTANY Attending Unavailable Encounters Encounter Date Encounter Type Care Provider Facility Start: 07-01-2023 End: 07-01-2023 ambulatory BRITTANY GUTIERRES Not Available Start: 07-20-2021 End: 07-20-2021 Emergency department patient visit RAMESH PHAM Facility:[facility] Start: 07-20-2021 End: 07-20-[address] CHUY KC Facility: Start: 01-09-2021 End: 01-09-[address] VANCE OWUSU Facility:[facility] Payers Date Payer Category Payer Private Health Insurance [id number] 1995 Unknown [id number] [id number] [id number] 1995 Unknown [id number] [id number] [id number] 1995 Unknown [id number] [id number] 1995 Unknown [id number] 2.16.84 [id number] 1959 Unknown [id number] Problems Active Problems Problem Classification Problem Date [...] Results Test Name Value Interpretation Reference Range Melia cabral APTTon 07-20-2021 aPTT Coag (Bld) [Time] 27.3 s Normal 25.0-35.0 [facility] Comment on above: Result Comment: ALL [...] THIS PURPOSE. Performed By: #### 5 6101, [id number] #### [facility] [address] BASIC METABOLIC PANELon 04-0 Calcium [Mass/Vol] 9.1 mg/dL Normal 8.6-10.3 [facility] Comment on above: Performed By: #### 0 0071, [id number] #### [facility] [address] Chloride [Moles/Vol] 104 mmol/L Normal 98-107 [facility] Comment on above: Performed By: #### 0 0071, [id number] #### [facility] [address] [place] [address], [facility] CO2 [Moles/Vol] 24 mmol/L Normal 21-31 [facility] Comment on above: Performed By: #### 0 0071, 36434 #### [facility] [address] [place] [address], [place] Creatinine [Mass/Vol] 0.52 mg/dL Low 0.60-1.20 [facility] Comment on above: Performed By: #### 0 0071, [id number] #### [facility] [address] [place] [address], [place] GFR/1.73 sq M.predicted among blacks MDRD (S/P/Bld) [Vol rate/Area] mL/min/{1.73_m2} Normal >60 [facility] Comment on above: Performed By: #### 0 0071, 76313 #### [facility] [address] [place] [address], [place] GFR/1.73 sq M.predicted among non-blacks MDRD (S/P/Bld) [Vol rate/Area] mL/min/{1.73_m2} Normal >60 [facility] Comment on above: Performed By: #### 0 0071, 10314 #### [facility] [address] [place] [address], [place] Glucose [Mass/Vol] 87 mg/dL Normal 70-100 [facility] Comment on above: Performed By: #### 0 0071, 53086 #### [facility] [address] [place] [address], [place] Potassium [Moles/Vol] 3.7 mmol/L Normal 3.5-5.1 [facility] Comment on above: Performed By: #### 0 0071, 43928 #### [facility] [address] [place] [address], [place] Sodium [Moles/Vol] 137 mmol/L Normal 136-145 [facility] Comment on above: Performed By: #### 0 0071, 34145 #### [facility] [address] [place] [address], [place] Urea nitrogen [Mass/Vol] 13 mg/dL Normal 7-25 [facility] Comment on above: Performed By: #### 0 0071, 54164 #### [facility] [address] [place] [address], [facility] CBC AUTO DIFFon 07-20-2021 BASO # 0.0 103/ul Normal 0.0-0.1 [facility] Comment on above: Performed By: #### C BC #### [facility] [address] [place] [address] Dr. Marilee Diaz Basophils/100 WBC (Bld) 0.2 % Normal 0.2-2.0 [facility] Comment on above: Performed By: #### C BC #### [facility] [address] [place] [address] Dr. Marilee Diaz EO # 0.0 103/ul Normal 0.0-0.7 [facility] Comment on above: Performed By: #### C BC #### [facility] [address] [place] [address] Dr. Marilee Diaz Eosinophils/100 WBC (Bld) 0.4 % Critically low 0.9-7.0 [facility] Comment on above: Performed By: #### C BC #### [facility] [address] [place] [address] Dr. Marilee Diaz Erythrocyte distribution width (RBC) [Ratio] 11.9 % Normal 11.0-15.0 [facility] Comment on above: Performed By: #### C BC #### [facility] [address] [place] [address] Dr. Marilee Diaz Hematocrit (Bld) [Volume fraction] 38.1 % Normal 36.0-48.0 [facility] Comment on above: Performed By: #### C BC #### [facility] [address] [place] [address] Dr. Marilee Diaz Hemoglobin (Bld) [Mass/Vol] 12.3 g/dL Normal 12.0-16.0 [facility] Comment on above: Performed By: #### C BC #### [facility] [address] [place] [address] Dr. Marilee Diaz IG # 0.02 10e3/ul Normal 0.00-0.03 [facility] Comment on above: Performed By: #### C BC #### [facility] [address] [place] [address] Dr. Marilee Diaz IG % 0.2 % Normal 0.0-0.5 [facility] Comment on above: Performed By: #### C BC #### [facility] [address] [place] [address] Dr. Marilee Diaz LYMPH # 2.7 103/ul Normal 1.2-3.8 [facility] Comment on above: Performed By: #### C BC #### [facility] [address] [place] [address] Dr. Marilee Diaz Lymphocytes/100 WBC (Bld) 31.8 % Normal 20.5-60.0 [facility] Comment on above: Performed By: #### C BC #### [facility] [address] [place] [address] Dr. Marilee Diaz MANUAL DIFF REQ NO Normal [facility] Comment on above: Performed By: #### C BC #### [facility] [address] [place] [address] Dr. Marilee Diaz MCH (RBC) [Entitic mass] 29.4 pg Normal 26.7-34.0 [facility] Comment on above: Performed By: #### C BC #### [facility] [address] [place] [address] Dr. Marilee Diaz MCHC (RBC) [Mass/Vol] 32.3 g/dL Normal 29.9-35.2 [facility] Comment on above: Performed By: #### C BC #### [facility] [address] [place] [address] Dr. Marilee Diaz MCV (RBC) [Entitic vol] 91.1 fL Normal 81.0-99.0 [facility] Comment on above: Performed By: #### C BC #### [facility] [address] [place] [address] Dr. Mariele Diaz MONO # 0.7 103/ul Normal 0.3-0.8 [facility] Comment on above: Performed By: #### C BC #### [facility] [address] [address] [address] Marilee Diaz Monocytes/100 WBC (Bld) 8.3 % Normal 1.7-12.0 [facility] Comment on above: Performed By: #### C BC #### [facility] [address] [address] [address] Marilee Diaz NEUT # 5.0 103/ul Normal 1.4-6.5 [facility] Comment on above: Performed By: #### C BC #### [facility] [address] [place] [address] Dr. Marilee Diaz Neutrophils/100 WBC (Bld) 59.1 % Normal 43.0-75.0 [facility] Comment on above: Performed By: #### C BC #### [facility] [address] [place] [address] Dr. Marilee Diaz Platelet mean volume (Bld) [Entitic vol] 9.7 fL Normal 9.5-13.5 [facility] Comment on above: Performed By: #### C BC #### [facility] [address] [place] [address] Dr. Marilee Diaz PLT 290 103/ul Normal 150-450 [facility] Comment on above: Performed By: #### C BC #### [facility] [address] [place] [address] Dr. Marilee Diaz RBC 4.18 106/ul Critically low 4.20-5.40 [facility] Comment on above: Performed By: #### C BC #### [facility] [address] [place] [address] Dr. Marilee Diaz WBC 8.4 103/ul Normal 4.0-11.0 [facility] Comment on above: Performed By: #### C BC #### [facility] [address] [place] [address] Dr. Marilee Diaz CBC COMPLETE BLOOD COUNTon 0 - Erythrocyte distribution width (RBC) [Ratio] 11.9 % Normal 11.5-15.0 [facility] Comment on above: Performed By: #### 5 0608 ####[facility]3000 [facility].[address] Hematocrit (Bld) [Volume fraction] 36.0 % Normal 36.0-45.0 [facility] Comment on above: Performed By: #### 5 0608 ####[facility]3000 [facility].[address] Hemoglobin (Bld) [Mass/Vol] 11.9 g/dL Low 12.0-15.0 [facility] Comment on above: Performed By: #### 5 0608 ####[address] MCH (RBC) [Entitic mass] 29.7 pg Normal 27.0-33.0 [facility] Comment on above: Performed By: #### 5 0608 ####[facility]3000 [facility].[address] MCHC (RBC) [Mass/Vol] 33.1 g/dL Normal 32.0-35.0 [facility] Comment on above: Performed By: #### 5 0608 ####[address] MCV (RBC) [Entitic vol] 89.8 fL Normal 82.0-98.0 [facility] Comment on above: Performed By: #### 5 0608 ####[place] [address] [facility].[address] Nucleated RBC/100 WBC (Bld) [Ratio] 0 % Normal 0-0 [facility] Comment on above: Performed By: #### 5 0608 ####[address] [place] [address], [facility] PLAT CNT 281 10*3/uL Normal 150-[address] [facility] Comment on above: Performed By: #### 5 0608 ####[facility]3000 [facility].[address] RBC (Bld) [#/Vol] 4.01 10*6/uL Normal 3.80-5.00 [facility] Comment on above: Performed By: #### 5 0608 ####[facility]3000 [facility].[address] WBC (Bld) [#/Vol] 6.83 10*3/uL Normal 4.00-10.60 [facility] Comment on above: Performed By: #### 5 0608 ####[facility] HEAD WO CONon 07-20-2021 CT [...] by: FERCHO ARIAS Date: 2021-07-20 02:53 Normal [facility] CTA HEAD WO W CONon 07-21-19 22 [...] 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 DEVELOPMENTAL ANOMALIES: takeoff of the left SOFTWARE TOOLS ENGINEER. OTHER: No intracranial hemorrhage, enhancing intracranial mass [...] FERCHO ARIAS Date: 2021-07-20 04:07 Normal [facility] Covid-19 PCR (CVDTB)on SARS-CoV-2 (COVID-19) RNA FRANK+probe Ql (Unsp spec) Not detected Normal NOT DETECTED [facility] Comment on above: Result Comment: This test is not yet approved or cleared by the [place] FDA. When there are no FDA-approved or cleared tests available, and other criteria are met, FDA can make tests available under an emergency access mechanism called an Emergency Use Authorization (EUA). The EUA for this test is supported by the [place] of Health and Human Service's (HHS's) declaration [...] consistent with SARS-CoV-2. Performed By: #### [facility] #### [facility] [address] [address] [address] Marilee Diaz LIVER BATTERY 07-20-2021 Albumin [Mass/Vol] 4.3 g/dL Normal 3.5-5.7 [facility] Comment on above: Performed By: #### 0 0071, 19009 #### [facility] [address] [place] [address], [facility] ALKALINE PHOSPH 57 IU/L Normal 34-104 [facility] Comment on above: Performed By: #### 0 0071, 81659 #### [facility] [address] [place] [address], [facility] ALT [Catalytic activity/Vol] 12 U/L Normal 7-52 [facility] Comment on above: Performed By: #### 0 0071, 73248 #### [facility] [address] [place] [address], [facility] AST [Catalytic activity/Vol] 13 U/L Normal 13-39 [facility] Comment on above: Performed By: #### 0 0071, 06262 #### [facility] [address] [place] [id number], [facility] Bilirubin [Mass/Vol] 0.3 mg/dL Normal 0.3-1.0 [facility] Comment on above: Performed By: #### 0 0071, 05867 #### [facility] [address] [place] [id number], [facility] Bilirubin.direct [Mass/Vol] 0.1 mg/dL Normal 0.0-0.2 [facility] Comment on above: Performed By: #### 0 0071, 19949 #### [address] Protein [Mass/Vol] 6.5 g/dL Normal 6.0-8.3 [facility] Comment on above: Performed By: #### 0 0071, 36838 #### [address] MRI STROKE ALERT BRAIN WO CO NTRASTon 07-20-2021 MRI STROKE ALERT BRAIN WO CONTRAST [facility] Department of Radiology [address] [place], [place] [id number] Patient Name: NATASHA BRAMBILA : 1995 Sex: F Age: Race: White Pt. Location: [facility] Patient Status: E Ordered Date: [...] brain. Electronically signed: Vance Jackson. Transcribed by: [email or web address], User Resident: Electronically Signed by: VANCE JACKSON @ 07/20/2021 08:18 AM Normal [facility] Comment on above: Order Comment: CVA POC GLUCOSE EDon 07-20-2021 Glucose [Mass/Vol] 90 mg/dL Normal 70-100 [facility] Comment on above: Performed By: #### 9 1690 #### [facility] [address] POC SARS COV2 ANTIGEN NEGATI VEon 07-20-2021 POC SARS COV2 ANTIGEN NEG CANCELED Normal NEGATIVE [facility] Comment on above: Result Comment: The released value NEGATIVE was canceled by JOSE on 07/22/2021 12:28 Performed By: #### 3 2044 #### [facility] 3000 [facility]. [address] POC SARS COV2 ANTIGEN NEG Negative Normal NEGATIVE [facility] Comment on above: Result Comment: Nega [...] antigen from SARS-CoV-2 in direct nasopharyngeal swab (SPECIAL EVENTS ASSISTANT) specimens from individuals who are suspected of [...] Certificate of Accreditation. Performed By: #### 3 2044 #### [facility] [address] POC URINE PREGNANCYon 2021 Beta HCG ( test) Ql (U) Negative Normal NEGATIVE [facility] Comment on above: Result Comment: Perf ormed in Emergency Department. Performed By: #### 8 4140 ####[facility] PORTABLE CHEST 1 VIEWon PORTABLE CHEST 1 VIEW [facility] Department of Radiology [address] [place] [id number] Patient Name: NATASHA BRAMBILA : 1995 Sex: F Age: Race: White Pt. Location: [facility] Patient Status: E Ordered Date: [...] report. Electronically signed: Parul Reilly. Transcribed by: [email or web address], User Resident: SWAPNA QUIROGA Electronically Signed by: PARUL REILLY @ 07/20/2021 06:51 AM I personally read this/these film(s) with this resident Normal [facility] Comment on above: Order Comment: evalu ate for Infiltrates PROF 14(COMP METB)on 022 Albumin [Mass/Vol] 4.0 g/dL Normal 3.4-5.0 [facility] Comment on above: Performed By: #### C MP #### [facility] [address] [place] [address] Dr. Marilee Diaz Albumin/Globulin [Mass ratio] 1.1 {ratio} Normal [facility] Comment on above: Performed By: #### C MP #### [facility] [address] [place] [address] Dr. Marilee Diaz ALP [Catalytic activity/Vol] 83 U/L Normal 46-116 [facility] Comment on above: Performed By: #### C MP #### [facility] [address] [place] [address] Dr. Marilee Diaz ALT [Catalytic activity/Vol] 20 U/L Normal 14-59 [facility] Comment on above: Performed By: #### C MP #### [facility] [address] [address] [address] Marilee Diaz Anion gap [Moles/Vol] 12.5 mmol/L Normal [facility] Comment on above: Performed By: #### C MP #### [facility] [address] [address] [address] Marilee Diaz AST [Catalytic activity/Vol] 12 U/L Critically low 15-37 [facility] Comment on above: Performed By: #### C MP #### [facility] [address] [address] [address] Marilee Diaz Bilirubin [Mass/Vol] 0.3 mg/dL Normal 0.2-1.3 [facility] Comment on above: Performed By: #### C MP #### [facility] [address] [address] [address] Marilee Diaz Calcium [Mass/Vol] 9.1 mg/dL Normal 8.5-10.1 [facility] Comment on above: Performed By: #### C MP #### [facility] [address] [address] [address] Marilee Diaz Chloride [Moles/Vol] 103 mmol/L Normal 98-107 [facility] Comment on above: Performed By: #### C MP #### [facility] [address] [place] [address] [address] Marilee Diaz CO2 [Moles/Vol] 26.2 mmol/L Normal 22.0-30.0 [facility] Comment on above: Performed By: #### C MP #### [facility] [address] [address] [address] Marilee Diaz Creatinine [Mass/Vol] 0.63 mg/dL Normal 0.52-1.04 [facility] Comment on above: Performed By: #### C MP #### [facility] [address] [place] [address] Dr. Marilee Diaz EGFR-AF GRENADIAN >60 Normal >=60 [facility] Comment on above: Performed By: #### C MP #### [facility] [address] [address] [address] Marilee Diaz EGFR-NON AF GRENADIAN >60 Normal >=60 [facility] Comment on above: Performed By: #### C MP #### [facility] [address] [place] [address] Dr. Marilee Diaz Globulin (S) [Mass/Vol] 3.5 g/dL Normal [facility] Comment on above: Performed By: #### C MP #### [facility] [address] [place] [address] Dr. Marilee Diaz Glucose [Mass/Vol] 104 mg/dL Normal 74-106 [facility] Comment on above: Performed By: #### C MP #### [facility] [address] [place] [address] Dr. Marilee Diaz Potassium [Moles/Vol] 3.7 mmol/L Normal 3.4-5.0 [facility] Comment on above: Performed By: #### C MP #### [facility] [address] [place] [address] Dr. Marilee Diaz Protein [Mass/Vol] 7.5 g/dL Normal 6.1-8.2 [facility] Comment on above: Performed By: #### C MP #### [facility] [address] [place] [address] Dr. Marilee Diaz Sodium [Moles/Vol] 138 mmol/L Normal 137-145 [facility] Comment on above: Performed By: #### C MP #### [facility] [address] [place] [address] Dr. Marilee Diaz Urea nitrogen [Mass/Vol] 15.0 mg/dL Normal 7.0-18.0 [facility] Comment on above: Performed By: #### C MP #### [facility] [address] [place] [address] Dr. Marilee Diaz Urea nitrogen/Creatinine [Mass ratio] 23.8 mg/mg Normal [facility] Comment on above: Performed By: #### C MP #### [facility] [address] [place] [address] Dr. Marilee Diaz PROTHROMBIN TIMEon 2 INR Coag (PPP) [Relative time] 0.95 {INR} Normal 0.91-1.16 [facility] Comment on above: Result Comment: ACCC [...] CHEST 1995;[id number]. Performed By: #### 5 6101, 64099 #### [facility] 3000 [facility]. [address] PT Coag (PPP) [Time] 12.7 s Normal 12.3-14.8 [facility] Comment on above: Result Comment: ALL RESULTS MUST BE INTERPRETED WITH RESPECT TO BLOOD DRAWING ARTIFACT OR DILUTION ERROR OF ANTICOAGULANT AT THE TIME OF SAMPLING. Performed By: #### 5 6101, 47683 #### [facility] [address] [place] [address], [facility] PROTIMEon 07-20-2021 INR Coag (PPP) [Relative time] 0.94 {INR} Normal [facility] Comment on above: Performed By: #### P T, PTT #### [facility] [address] [place] [address] Dr. Marilee Diaz INR GUIDELINES SEE BELOW Normal [facility] Comment on above: Result Comment: POLA RED INR: 2.0 - 3.0 CONDITIONS NOT LISTED BELOW 2.5 - 3.5 FOR PROSTHETIC HEART VALVE REPLACEMENT 2.5 - 3.5 RECURRENT THROMBOSIS Performed By: #### P T, PTT #### [facility] [address] [place] [address] Dr. Marilee Diaz PT Coag (PPP) [Time] 10.2 s Normal 9.0-11.6 [facility] Comment on above: Performed By: #### P T, PTT #### [facility] [address] [place] [address] Dr. Marilee Diaz PTTon 07-20-2021 aPTT Coag (Bld) [Time] 26.3 s Normal 22.3-36.2 [facility] Comment on above: Performed By: #### P T, PTT #### [facility] [address] [place] [address] Dr. Marilee Diaz Covid-19 PCR ([facility])on 12-21 SARS-CoV-2 (COVID-19) RNA FRANK+probe Ql (Unsp spec) Not detected Normal NOT DETECTED [facility] Comment on above: Result Comment: This test is not yet approved or cleared by the [place] FDA. When there are no FDA-approved or cleared tests available, and other criteria are met, FDA can make tests available under an emergency access mechanism called an Emergency Use Authorization (EUA). The EUA for this test is supported by the [employer] of [employer] and Human Service's (HHS's) declaration [...] consistent with SARS-CoV-2. Performed By: #### C [facility] #### [facility] [address] [place] [address] Dr. Marilee Diaz Discharge summary note 07-31-2021 Note Date & Type Note Facility 07-31-2021 Note MR#: [id number] [facility] Pt. 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 CONSULTATIONS: Neurology/Stroke Service. HOSPITAL COURSE: A 26-year-old female presented to [facility] Emergency Department as a hospital transfer from [facility] after being accepted by Dr. [...] GCS of 15 with NIH [address] [facility] Emergency Department. Labs unremarkable. Patient received [...] follow up with Cardiology, Dr. Reynolds at [facility]. The patient to set up a [...] may be an additional personal documentation from [place]. Date Dict: 07/31/2021/08:19 P/Danyelle Lambert, HAND [employer]ER Date Trans: 07/31/2021 08:55 P/mmo [id number] cc: Vance Owusu M.D. [address] [facility] [id number] Chuy Kc M.D. E R Physican...do Not Send [address] [facility] [address] [facility] Summary Purpose Family History No Family History Records FoundNo Family History Records FoundNo Family History Records Found Advance Directives No Advanced Directives Records FoundNo Advanced Directives Records FoundNo Advanced Directives Records Found Additional Source Comments INFORMATION SOURCE (unrecogn ized section and content) DATE CREATED AUTHOR 08/02/2021 [facility] DATE CREATED AUTHOR AUTHOR'S ORGANIZ ATION 08/02/2021 [facility] DATE CREATED AUTHOR AUTHOR'S ORGANIZ ATION 07/02/2023 [facility] EPIC FOR RECORDS PERTAINING [...] BE BASED ON THE PRIMARY CLINICAL RECORDS. [employer] provides no warranty or guarantee of the accuracy or completeness of information in this document.
== END 2023-11-03 20:58 | disposition home or self-care (01) ==
LOC: LAB 20:57
PROVIDERS: PCP Family Medicine; Visit Provider Obstetrics & Gynecology
DX: Z01.419 Encounter for gynecological examination (general) (routine) without abnormal findings (principal)
CPT/HCPCS: 88175

== ENCOUNTER 2023-11-12 15:25 | Outpatient (OUT) | payer OTHER, SELFPAY ==
--- OUTSIDE RECORDS SUMMARY | 2023-11-12 15:29 | XMS_ITS | CCD ---
Author Organization [facility] Care Team Providers Care Software Project Engineer Name Role Phone DR CHUY KC Attending [...] (Bld) [Time] 27.3 s Normal 25.0-35.[address] [facility] Comment on above: Result Comment: ALL [...] THIS PURPOSE. Performed By: #### 5 6101, [id number] #### [facility] [address] [place] [address], [place] BASIC METABOLIC PANELon 04-0 Calcium [Mass/Vol] 9.1 mg/dL Normal 8.6-10.3 [facility] Comment on above: Performed By: #### 0 0071, 86805 #### [facility] [address] [place] [address], [place] Chloride [Moles/Vol] 104 mmol/L Normal 98-[address] [facility] Comment on above: Performed By: #### 0 0071, 29602 #### [facility] [address] [place] [address], [place] CO2 [Moles/Vol] 24 mmol/L Normal 21-31 [facility] Comment on above: Performed By: #### 0 0071, 31378 #### [facility] [address] [place] [address], [place] Creatinine [Mass/Vol] 0.52 mg/dL Low 0.60-1.[address] [facility] Comment on above: Performed By: #### 0 0071, 50589 #### [facility] [address] [place] [address], [place] GFR/1.73 sq M.predicted among blacks MDRD (S/P/Bld) [Vol rate/Area] mL/min/{1.73_m2} Normal >[address] [facility] Comment on above: Performed By: #### 0 0071, 85633 #### [facility] [address] [place] [address], [place] GFR/1.73 sq M.predicted among non-blacks MDRD (S/P/Bld) [Vol rate/Area] mL/min/{1.73_m2} Normal >[address] [facility] Comment on above: Performed By: #### 0 0071, 76139 #### [facility] [address] [place] [address], [facility] Glucose [Mass/Vol] 87 mg/dL Normal 70-100 [facility] Comment on above: Performed By: #### 0 0071, 51117 #### [facility] [address] [place] [address], [facility] Potassium [Moles/Vol] 3.7 mmol/L Normal 3.5-5.[address] [facility] Comment on above: Performed By: #### 0 0071, 81939 #### [facility] [address] [place] [address], [place] Sodium [Moles/Vol] 137 mmol/L Normal 136-145 [facility] Comment on above: Performed By: #### 0 0071, 07981 #### [facility] [address] [place] [address], [facility] Urea nitrogen [Mass/Vol] 13 mg/dL Normal 7-[address] [facility] Comment on above: Performed By: #### 0 0071, 66865 #### [facility] [address] [facility] [place] [address], [facility] CBC AUTO DIFFon 07-20-2021 BASO # 0.0 103/ul Normal 0.0-0.1 [facility] Comment on above: Performed By: #### C BC #### [facility] [address] [address] [address] Marilee Diaz Basophils/100 WBC (Bld) 0.2 % Normal 0.2-2.0 [facility] Comment on above: Performed By: #### C BC #### [facility] [address] [address] [address] Marilee Diaz EO # 0.0 103/ul Normal 0.0-0.7 [facility] Comment on above: Performed By: #### C BC #### [facility] [address] [address] [address] Marilee Diaz Eosinophils/100 WBC (Bld) 0.4 % Critically low 0.9-7.0 [facility] Comment on above: Performed By: #### C BC #### [facility] [address] [place] [address] Dr. Marilee Diaz Erythrocyte distribution width (RBC) [Ratio] 11.9 % Normal 11.0-15.0 [facility] Comment on above: Performed By: #### C BC #### [facility] [address] [place] [address] Dr. Marilee Diaz Hematocrit (Bld) [Volume fraction] 38.1 % Normal 36.0-48.0 [facility] Comment on above: Performed By: #### C BC #### [facility] [address] [place] [address] Dr. Marilee Diaz Hemoglobin (Bld) [Mass/Vol] 12.3 g/dL Normal 12.0-16.0 [facility] Comment on above: Performed By: #### C BC #### [facility] [address] [place] [address] Dr. Marilee Diaz IG # 0.02 10e3/ul Normal 0.00-0.03 [facility] Comment on above: Performed By: #### C BC #### [facility] [address] [place] [address] Dr. Marilee Diaz IG % 0.2 % Normal 0.0-0.5 [facility] Comment on above: Performed By: #### C BC #### [facility] [address] [place] [address] Dr. Marilee Diaz LYMPH # 2.7 103/ul Normal 1.2-3.8 [facility] Comment on above: Performed By: #### C BC #### [facility] [address] [place] [address] Dr. Marilee Diaz Lymphocytes/100 WBC (Bld) 31.8 % Normal 20.5-60.0 [facility] Comment on above: Performed By: #### C BC #### [facility] [address] [place] [address] Dr. Marilee Diaz MANUAL DIFF REQ NO Normal [facility] Comment on above: Performed By: #### C BC #### [facility] [address] [address] [address] Marilee Diaz MCH (RBC) [Entitic mass] 29.4 pg Normal 26.7-34.0 [facility] Comment on above: Performed By: #### C BC #### [facility] [address] [place] [address] Dr. Marilee Diaz MCHC (RBC) [Mass/Vol] 32.3 g/dL Normal 29.9-35.2 [facility] Comment on above: Performed By: #### C BC #### [facility] [address] [place] [address] Dr. Marilee Diaz MCV (RBC) [Entitic vol] 91.1 fL Normal 81.0-99.0 [facility] Comment on above: Performed By: #### C BC #### [facility] [address] [place] [address] Dr. Marilee Diaz MONO # 0.7 103/ul Normal 0.3-0.8 [facility] Comment on above: Performed By: #### C BC #### [facility] [address] [place] [address] Dr. Marilee Diaz Monocytes/100 WBC (Bld) 8.3 % Normal 1.7-12.0 [facility] Comment on above: Performed By: #### C BC #### [facility] [address] [place] [address] Dr. Marilee Diaz NEUT # 5.0 103/ul Normal 1.4-6.5 [facility] Comment on above: Performed By: #### C BC #### [facility] [address] [place] [address] Dr. Marilee Diaz Neutrophils/100 WBC (Bld) 59.1 % Normal 43.0-75.0 [facility] Comment on above: Performed By: #### C BC #### [facility] [address] [place] [address] Dr. Marilee Diaz Platelet mean volume (Bld) [Entitic vol] 9.7 fL Normal 9.5-13.5 [facility] Comment on above: Performed By: #### C BC #### [facility] [address] [place], [place] [address] Dr. Marilee Diaz PLT 290 103/ul Normal 150-450 [facility] Comment on above: Performed By: #### C BC #### [facility] [address] [place], [place] [address] Dr. Marilee Diaz RBC 4.18 106/ul Critically low 4.20-5.40 [facility] Comment on above: Performed By: #### C BC #### [facility] [address] [place], [place] [address] Dr. Marilee Diaz WBC 8.4 103/ul Normal 4.0-11.0 [facility] Comment on above: Performed By: #### C BC #### [facility] [address] [place], [place] [address] Dr. Marilee Diaz CBC COMPLETE BLOOD COUNTon 0 07-20-2021 Erythrocyte distribution width (RBC) [Ratio] 11.9 % Normal 11.5-15.0 [facility] Comment on above: Performed By: #### 5 0608 ####[facility] [address] Hematocrit (Bld) [Volume fraction] 36.0 % Normal 36.0-45.[address] [facility] Comment on above: Performed By: #### 5 0608 ####[facility] [place] [address], [facility] Hemoglobin (Bld) [Mass/Vol] 11.9 g/dL Low 12.0-15.[address] [facility] Comment on above: Performed By: #### 5 0608 ####[facility] [place] [address], [facility] MCH (RBC) [Entitic mass] 29.7 pg Normal 27.0-33.[address] [facility] Comment on above: Performed By: #### 5 0608 ####[facility] [place] [id number], [place] MCHC (RBC) [Mass/Vol] 33.1 g/dL Normal 32.0-35.[address] [facility] Comment on above: Performed By: #### 5 0608 ####[address] MCV (RBC) [Entitic vol] 89.8 fL Normal 82.0-98.[address] [facility] Comment on above: Performed By: #### 5 0608 ####[place] [id number] [address] Nucleated RBC/100 WBC (Bld) [Ratio] 0 % Normal 0-[address] [facility] Comment on above: Performed By: #### 5 0608 ####[address] PLAT CNT 281 10*3/uL Normal 150-400 [facility] Comment on above: Performed By: #### 5 0608 ####[address] RBC (Bld) [#/Vol] 4.01 10*6/uL Normal 3.80-5.00 [facility] Comment on above: Performed By: #### 5 0608 ####[address] WBC (Bld) [#/Vol] 6.83 10*3/uL Normal 4.00-10.60 [facility] Comment on above: Performed By: #### 5 0608 ####[address] HEAD WO CONon 07-20-2021 CT [...] by: FERCHO ARIAS Date: 2021-07-20 02:53 Normal [facility] CTA HEAD WO W CONon 07-21-19 [...] There is patent origin of 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 DEVELOPMENTAL ANOMALIES: takeoff of the left OPERATIONS DEVELOPER. OTHER: No intracranial hemorrhage, enhancing intracranial mass [...] FERCHO ARIAS Date: 2021-07-20 04:07 Normal [facility] Covid-19 PCR ([facility]VD[facility])on SARS-CoV-2 (COVID-19) RNA FRANK+probe Ql (Unsp spec) Not detected Normal NOT DETECTED [facility] Comment on above: Result Comment: This test is not yet approved or cleared by the [place] FDA. When there are no FDA-approved or cleared tests available, and other criteria are met, FDA can make tests available under an emergency access mechanism called an Emergency Use Authorization (EUA). The EUA for this test is supported by the Plant Senior Manager of Health and Human Service's (HHS's) declaration [...] consistent with SARS-CoV-2. Performed By: #### [facility] #### [facility] [address] [address] [address] Marilee Diaz [facility] 07-20-2021 Albumin [Mass/Vol] 4.3 g/dL Normal 3.5-5.7 [facility] Comment on above: Performed By: #### 0 0071, 86679 #### [facility] [address] [facility] [place] [place] [address], [facility] ALKALINE PHOSPH 57 IU/L Normal 34-104 [facility] Comment on above: Performed By: #### 0 0071, 98488 #### [facility] [address] [place] [address], [facility] ALT [Catalytic activity/Vol] 12 U/L Normal 7-[address] [facility] Comment on above: Performed By: #### 0 0071, 91863 #### [facility] [address] [place] [address], [place] AST [Catalytic activity/Vol] 13 U/L Normal 13-[address] [facility] Comment on above: Performed By: #### 0 0071, 96254 #### [facility] [address] [facility] [place] [place] [address], [facility] Bilirubin [Mass/Vol] 0.3 mg/dL Normal 0.3-1.[address] [facility] Comment on above: Performed By: #### 0 0071, 46815 #### [facility] [address] [facility] [place] [place] [address], [facility] Bilirubin.direct [Mass/Vol] 0.1 mg/dL Normal 0.0-0.[address] [facility] Comment on above: Performed By: #### 0 0071, 84846 #### [facility] [address] [facility] [place] [address], [facility] Protein [Mass/Vol] 6.5 g/dL Normal 6.0-8.3 [facility] Comment on above: Performed By: #### 0 0071, 12172 #### [facility] [address] [facility] [address], [facility] MRI STROKE ALERT BRAIN WO CO NTRASTon 07-20-2021 MRI STROKE ALERT BRAIN WO CONTRAST [facility] Department of Radiology [address] [place] [address] Patient Name: NATASHA BRAMBILA : 1995 Sex: F Age: Race: White Pt. Location: [facility] Patient Status: E Ordered Date: 07/20/2021 6:05:00 [...] brain. Electronically signed: Vance Jackson. Transcribed by: [email or web address], User Resident: Electronically Signed by: VANCE JACKSON @ 07/20/2021 08:18 AM Normal [facility] Comment on above: Order Comment: CVA POC GLUCOSE EDon 07-20-2021 Glucose [Mass/Vol] 90 mg/dL Normal 70-100 [facility] Comment on above: Performed By: #### 9 1690 #### [facility] [address] [place] [address], [facility] POC SARS COV2 ANTIGEN NEGATI VEon 07-20-2021 POC SARS COV2 ANTIGEN NEG Negative Normal NEGATIVE [facility] Comment on above: Result Comment: Nega [...] antigen from SARS-CoV-2 in direct nasopharyngeal swab (CLINICAL MARKETING MANAGER) specimens from individuals who are suspected of [...] Accreditation. Performed By: #### 3 2043 #### [facility] [address] [facility]. [address] POC SARS COV2 ANTIGEN NEG CANCELED Normal NEGATIVE [facility] Comment on above: Result Comment: The released value NEGATIVE was canceled by JOSE on 07/22/2021 12:28 Performed By: #### 3 2043 #### [facility] [address] [facility]. [address] POC URINE PREGNANCYon 2021 Beta HCG ( test) Ql (U) Negative Normal NEGATIVE [facility] Comment on above: Result Comment: Perf ormed in Emergency Department. Performed By: #### 8 4140 ####[facility] [facility] [place] [address], [facility] PORTABLE CHEST 1 VIEWon PORTABLE CHEST [address] [facility] Department of Radiology [address] [place] [id number] Patient Name: NATASHA BRAMBILA : 1995 Sex: F Age: Race: White Pt. Location: [facility] Patient Status: E Ordered Date: 07/20/2021 6:05:00 [...] report. Electronically signed: Parul Reilly. Transcribed by: [email or web address], User Resident: SWAPNA QUIROGA Electronically Signed by: PARUL REILLY @ 07/20/2021 06:51 AM I personally read this/these film(s) with this resident Normal [facility] Comment on above: Order Comment: evalu ate for Infiltrates PROF 14(COMP METB)on 022 Albumin [Mass/Vol] 4.0 g/dL Normal 3.4-5.0 [facility] Comment on above: Performed By: #### C MP #### [facility] [address] [address] [address] Marilee Diaz Albumin/Globulin [Mass ratio] 1.1 {ratio} Normal [facility] Comment on above: Performed By: #### C MP #### [facility] [address] [place] [address] Dr. Marilee Diaz ALP [Catalytic activity/Vol] 83 U/L Normal 46-116 [facility] Comment on above: Performed By: #### C MP #### [facility] [address] [place] [address] Dr. Marilee Diaz ALT [Catalytic activity/Vol] 20 U/L Normal 14-59 [facility] Comment on above: Performed By: #### C MP #### [facility] [address] [address] [address] Marilee Diaz Anion gap [Moles/Vol] 12.5 mmol/L Normal [facility] Comment on above: Performed By: #### C MP #### [facility] [address] [place] [address] Dr. Marilee Diaz AST [Catalytic activity/Vol] 12 U/L Critically low 15-37 [facility] Comment on above: Performed By: #### C MP #### [facility] [address] [address] [address] Marilee Diaz Bilirubin [Mass/Vol] 0.3 mg/dL Normal 0.2-1.3 [facility] Comment on above: Performed By: #### C MP #### [facility] [address] [place] [address] Dr. Marilee Diaz Calcium [Mass/Vol] 9.1 mg/dL Normal 8.5-10.1 [facility] Comment on above: Performed By: #### C MP #### [facility] [address] [place] [address] Dr. Marilee Diaz Chloride [Moles/Vol] 103 mmol/L Normal 98-107 [facility] Comment on above: Performed By: #### C MP #### [facility] [address] [address] [address] Marilee Diaz CO2 [Moles/Vol] 26.2 mmol/L Normal 22.0-30.0 [facility] Comment on above: Performed By: #### C MP #### [facility] [address] [address] [address] Marilee Diaz Creatinine [Mass/Vol] 0.63 mg/dL Normal 0.52-1.04 [facility] Comment on above: Performed By: #### C MP #### [facility] [address] [address] [address] Marilee Diaz EGFR-AF NEPALESE >60 Normal >=60 [facility] Comment on above: Performed By: #### C MP #### [facility] [address] [address] [address] Marilee Diaz EGFR-NON AF NEPALESE >60 Normal >=60 [facility] Comment on above: Performed By: #### C MP #### [facility] [address] [address] [address] Marilee Diaz Globulin (S) [Mass/Vol] 3.5 g/dL Normal [facility] Comment on above: Performed By: #### C MP #### [facility] [address] [address] [address] Marilee Diaz Glucose [Mass/Vol] 104 mg/dL Normal 74-106 [facility] Comment on above: Performed By: #### C MP #### [facility] [address] [address] [address] Marilee Diaz Potassium [Moles/Vol] 3.7 mmol/L Normal 3.4-5.0 [facility] Comment on above: Performed By: #### C MP #### [facility] [address] [place] [address] Dr. Marilee Diaz Protein [Mass/Vol] 7.5 g/dL Normal 6.1-8.2 [facility] Comment on above: Performed By: #### C MP #### [facility] [address] [address] [address] Marilee Diaz Sodium [Moles/Vol] 138 mmol/L Normal 137-145 [facility] Comment on above: Performed By: #### C MP #### [facility] [address] [place], [place] [address] Dr. Marilee Diaz Urea nitrogen [Mass/Vol] 15.0 mg/dL Normal 7.0-18.0 [facility] Comment on above: Performed By: #### C MP #### [facility] [address] [address] [address] Marilee Diaz Urea nitrogen/Creatinine [Mass ratio] 23.8 mg/mg Normal [facility] Comment on above: Performed By: #### C MP #### [facility] [address] [address] [address] Marilee Diaz PROTHROMBIN TIMEon 2 INR Coag (PPP) [Relative time] 0.95 {INR} Normal 0.91-1.16 [facility] Comment on above: Result Comment: ACCC [...] CHEST 1995;[id number]. Performed By: #### 5 6101, 33034 #### [facility] [address] [place] [address], [facility] PT Coag (PPP) [Time] 12.7 s Normal 12.3-14.[address] [facility] Comment on above: Result Comment: ALL RESULTS MUST BE INTERPRETED WITH RESPECT TO BLOOD DRAWING ARTIFACT OR DILUTION ERROR OF ANTICOAGULANT AT THE TIME OF SAMPLING. Performed By: #### 5 6101, 48382 #### [facility] [address] [place] [address], [place] PROTIMEon 07-20-2021 INR Coag (PPP) [Relative time] 0.94 {INR} Normal [facility] Comment on above: Performed By: #### P T, PTT #### [facility] [address] [place] [address] Dr. Marilee Diaz INR GUIDELINES SEE BELOW Normal [facility] Comment on above: Result Comment: POLA RED INR: 2.0 - 3.0 CONDITIONS NOT LISTED BELOW 2.5 - 3.5 FOR PROSTHETIC HEART VALVE REPLACEMENT 2.5 - 3.5 RECURRENT THROMBOSIS Performed By: #### P T, PTT #### [facility] [address] [place] [address] Dr. Marilee Diaz PT Coag (PPP) [Time] 10.2 s Normal 9.0-11.6 [facility] Comment on above: Performed By: #### P T, PTT #### [facility] [address] [place] [address] Dr. Marilee Diaz PTTon 07-20-2021 aPTT Coag (Bld) [Time] 26.3 s Normal 22.3-36.2 [facility] Comment on above: Performed By: #### P T, PTT #### [facility] [address] [place] [address] Dr. Marilee Diaz Covid-19 PCR ([facility])on 12-21 SARS-CoV-2 (COVID-19) RNA FRANK+probe Ql (Unsp spec) Not detected Normal NOT DETECTED [facility] Comment on above: Result Comment: This test is not yet approved or cleared by the [place] FDA. When there are no FDA-approved or cleared tests available, and other criteria are met, FDA can make tests available under an emergency access mechanism called an Emergency Use Authorization (EUA). The EUA for this test is supported by the Plant Senior Manager of Health and Human Service's (HHS's) declaration [...] consistent with SARS-CoV-2. Performed By: #### [facility] #### [facility] [address] [place] [address] Dr. Marilee Diaz Encounters Encounter Date Encounter Type Care Provider Facility Start: 07-01-2023 End: 07-01-2023 ambulatory BRITTANY GUTIERRES Not Available Start: 07-20-2021 End: 07-20-2021 Emergency department patient visit RAMESH PHAM Facility:[facility] Start: 07-20-2021 End: 07-20-[address] CHUY KC Facility: Start: 01-09-2021 End: 01-09-[address] VANCE OWUSU Facility: Payers Date Payer Category Payer Private Health Insurance [id number] 1995 Unknown [id number] 1995 Unknown [id number] [id number] [id number] 1995 Unknown [id number] 1995 Unknown [id number] 1959 Unknown [id number] Discharge summary note 07-31-2021 Note Date & Type Note Facility 07-31-2021 Note MR#: [id number] [facility] Pt. 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 CONSULTATIONS: Neurology/Stroke Service. HOSPITAL COURSE: A 26-year-old female presented to [facility] Emergency Department as a hospital transfer from [facility] after being accepted by Dr. [...] GCS of 15 with NIH 4 in [facility] Emergency Department. Labs unremarkable. Patient received [...] follow up with Cardiology, Dr. Reynolds at [facility]. The patient to set up a [...] may be an additional personal documentation from ut. Date Dict: 07/31/2021/08:19 P/Danyelle Lambert, MARINE SURVEYOR Date Trans: 07/31/2021 08:55 P/mmo [id number] cc: Vance Owusu M.D. [address] [facility] [id number] Chuy Kc M.D. E R Physican...do Not Send [address] [facility] [address] [address] [facility] Summary Purpose Family History No Family History Records FoundNo Family History Records FoundNo Family History Records Found Advance Directives No Advanced Directives Records FoundNo Advanced Directives Records FoundNo Advanced Directives Records Found Additional Source Comments INFORMATION SOURCE (unrecogn ized section and content) DATE CREATED AUTHOR 08/02/2021 [facility] DATE CREATED AUTHOR AUTHOR'S ORGANIZ ATION 08/02/2021 [facility] DATE CREATED AUTHOR AUTHOR'S ORGANIZ ATION 07/02/2023 [facility] [place] d[facility] Specialists EPIC FOR RECORDS PERTAINING TO [...] BE BASED ON THE PRIMARY CLINICAL RECORDS. [employer] provides no warranty or guarantee of the accuracy or completeness of information in this document.
[2023-11-13 04:07] LABS: Progesterone 44.4 ng/mL (.)
== END 2023-11-12 15:26 | disposition home or self-care (01) ==
LOC: LAB 15:26
PROVIDERS: PCP Family Medicine; Visit Provider Obstetrics & Gynecology
DX: E34.9 Endocrine disorder, unspecified (principal); N93.9 Abnormal uterine and vaginal bleeding, unspecified; E28.2 Polycystic ovarian syndrome; N97.0 Female infertility associated with anovulation
CPT/HCPCS: 36415; 84144

== ENCOUNTER 2023-11-27 09:26 | Day surgery (SDC) | payer OTHER, SELFPAY ==
--- OUTSIDE RECORDS SUMMARY | 2023-11-27 09:34 | XMS_ITS | CCD ---
Author Organization [facility] Care Team Providers Care Cyber Threat Analyst Name Role Phone DR CHUY KC Attending [...] (Bld) [Time] 27.3 s Normal 25.0-35.0 [facility] Comment on above: Result Comment: ALL [...] THIS PURPOSE. Performed By: #### 5 6101, [id number] #### [facility] [address] [place] [address], [place] BASIC METABOLIC PANELon 04-0 Calcium [Mass/Vol] 9.1 mg/dL Normal 8.6-10.3 [facility] Comment on above: Performed By: #### 0 0071, [id number] #### [facility] [address] [place] [address], [place] Chloride [Moles/Vol] 104 mmol/L Normal 98-107 [facility] Comment on above: Performed By: #### 0 0071, 71927 #### [facility] [address] [place] [address], [place] CO2 [Moles/Vol] 24 mmol/L Normal 21-31 [facility] Comment on above: Performed By: #### 0 0071, [id number] #### [facility] [address] [place] [address], [place] Creatinine [Mass/Vol] 0.52 mg/dL Low 0.60-1.20 [facility] Comment on above: Performed By: #### 0 0071, 94641 #### [facility] [address] [place] [address], [place] GFR/1.73 sq M.predicted among blacks MDRD (S/P/Bld) [Vol rate/Area] mL/min/{1.73_m2} Normal >60 [facility] Comment on above: Performed By: #### 0 0071, 10137 #### [facility] [address] [place] [address], [place] GFR/1.73 sq M.predicted among non-blacks MDRD (S/P/Bld) [Vol rate/Area] mL/min/{1.73_m2} Normal >60 [facility] Comment on above: Performed By: #### 0 0071, 53055 #### [facility] [address] [place] [address], [facility] Glucose [Mass/Vol] 87 mg/dL Normal 70-100 [facility] Comment on above: Performed By: #### 0 0071, 85926 #### [facility] [address] [place] [address], [facility] Potassium [Moles/Vol] 3.7 mmol/L Normal 3.5-5.1 [facility] Comment on above: Performed By: #### 0 0071, 60153 #### [facility] [address] [place] [address], [place] Sodium [Moles/Vol] 137 mmol/L Normal 136-145 [facility] Comment on above: Performed By: #### 0 0071, 41638 #### [facility] [address] [place] [address], [facility] Urea nitrogen [Mass/Vol] 13 mg/dL Normal 7-25 [facility] Comment on above: Performed By: #### 0 0071, 59262 #### [facility] [address] [place] [address], [facility] CBC AUTO DIFFon 07-20-2021 BASO # 0.0 103/ul Normal 0.0-0.1 [facility] Comment on above: Performed By: #### C BC #### [facility] [address] [address] [address] Marilee Diaz Basophils/100 WBC (Bld) 0.2 % Normal 0.2-2.0 [facility] Comment on above: Performed By: #### C BC #### [facility] [address] [address] [address] Marilee Diaz EO # 0.0 103/ul Normal 0.0-0.7 [facility] Comment on above: Performed By: #### C BC #### [facility] [address] [address] [address] Marilee Diaz Eosinophils/100 WBC (Bld) 0.4 % Critically low 0.9-7.0 [facility] Comment on above: Performed By: #### C BC #### [facility] [address] [place] [address] Dr. Marilee Diaz Erythrocyte distribution width (RBC) [Ratio] 11.9 % Normal 11.0-15.0 [facility] Comment on above: Performed By: #### C BC #### [facility] [address] [place] [address] Dr. Marilee Diaz Hematocrit (Bld) [Volume fraction] 38.1 % Normal 36.0-48.0 [facility] Comment on above: Performed By: #### C BC #### [facility] [address] [place] [address] Dr. Marilee Diaz Hemoglobin (Bld) [Mass/Vol] 12.3 g/dL Normal 12.0-16.0 [facility] Comment on above: Performed By: #### C BC #### [facility] [address] [place] [address] Dr. Marilee Diaz IG # 0.02 10e3/ul Normal 0.00-0.03 [facility] Comment on above: Performed By: #### C BC #### [facility] [address] [place] [address] Dr. Marilee Diaz IG % 0.2 % Normal 0.0-0.5 [facility] Comment on above: Performed By: #### C BC #### [facility] [address] [place] [address] Dr. Marilee Diaz LYMPH # 2.7 103/ul Normal 1.2-3.8 [facility] Comment on above: Performed By: #### C BC #### [facility] [address] [place] [address] Dr. Marilee Diaz Lymphocytes/100 WBC (Bld) 31.8 % Normal 20.5-60.0 [facility] Comment on above: Performed By: #### C BC #### [facility] [address] [place] [address] Dr. Marilee Diaz MANUAL DIFF REQ NO Normal [facility] Comment on above: Performed By: #### C BC #### [facility] [address] [address] [address] Marilee Diaz MCH (RBC) [Entitic mass] 29.4 pg Normal 26.7-34.0 [facility] Comment on above: Performed By: #### C BC #### [facility] [address] [place] [address] Dr. Marilee Diaz MCHC (RBC) [Mass/Vol] 32.3 g/dL Normal 29.9-35.2 [facility] Comment on above: Performed By: #### C BC #### [facility] [address] [place] [address] Dr. Marilee Diaz MCV (RBC) [Entitic vol] 91.1 fL Normal 81.0-99.0 [facility] Comment on above: Performed By: #### C BC #### [facility] [address] [place] [address] Dr. Marilee Diaz MONO # 0.7 103/ul Normal 0.3-0.8 [facility] Comment on above: Performed By: #### C BC #### [facility] [address] [place] [address] Dr. Marilee Diaz Monocytes/100 WBC (Bld) 8.3 % Normal 1.7-12.0 [facility] Comment on above: Performed By: #### C BC #### [facility] [address] [place] [address] Dr. Marilee Diaz NEUT # 5.0 103/ul Normal 1.4-6.5 [facility] Comment on above: Performed By: #### C BC #### [facility] [address] [place] [address] Dr. Marilee Diaz Neutrophils/100 WBC (Bld) 59.1 % Normal 43.0-75.0 [facility] Comment on above: Performed By: #### C BC #### [facility] [address] [place] [address] Dr. Marilee Diaz Platelet mean volume (Bld) [Entitic vol] 9.7 fL Normal 9.5-13.5 [facility] Comment on above: Performed By: #### C BC #### [facility] [address] [place], [place] [address] Dr. Marilee Diaz PLT 290 103/ul Normal 150-450 [facility] Comment on above: Performed By: #### C BC #### [facility] [address] [place], [place] [address] Dr. Marilee Diaz RBC 4.18 106/ul Critically low 4.20-5.40 [facility] Comment on above: Performed By: #### C BC #### [facility] [address] [place], [place] [address] Dr. Marilee Diaz WBC 8.4 103/ul Normal 4.0-11.0 [facility] Comment on above: Performed By: #### C BC #### [facility] [address] [place], [place] [address] Dr. Marilee Diaz CBC COMPLETE BLOOD COUNTon 0 07-20-2021 Erythrocyte distribution width (RBC) [Ratio] 11.9 % Normal 11.5-15.0 [facility] Comment on above: Performed By: #### 5 0608 ####[facility] Hematocrit (Bld) [Volume fraction] 36.0 % Normal 36.0-45.0 [facility] Comment on above: Performed By: #### 5 0608 ####[facility] [place] [address], [facility] Hemoglobin (Bld) [Mass/Vol] 11.9 g/dL Low 12.0-15.0 [facility] Comment on above: Performed By: #### 5 0608 ####[facility] [place] [address], [facility] MCH (RBC) [Entitic mass] 29.7 pg Normal 27.0-33.0 [facility] Comment on above: Performed By: #### 5 0608 ####[facility] [place] [id number], [place] MCHC (RBC) [Mass/Vol] 33.1 g/dL Normal 32.0-35.0 [facility] Comment on above: Performed By: #### 5 0608 ####[address] MCV (RBC) [Entitic vol] 89.8 fL Normal 82.0-98.0 [facility] Comment on above: Performed By: #### 5 0608 ####[place] [id number] Nucleated RBC/100 WBC (Bld) [Ratio] 0 % Normal 0-0 [facility] Comment on above: Performed By: #### 5 0608 ####[address] PLAT CNT 281 10*3/uL Normal 150-400 [facility] Comment on above: Performed By: #### 5 0608 ####[address] RBC (Bld) [#/Vol] 4.01 10*6/uL Normal 3.80-5.00 [facility] Comment on above: Performed By: #### 5 0608 ####[address] WBC (Bld) [#/Vol] 6.83 10*3/uL Normal 4.00-10.60 [facility] Comment on above: Performed By: #### 5 0608 ####[address] HEAD WO CONon 07-20-2021 CT [...] by: FERCHO ARIAS Date: 2021-07-20 02:53 Normal [facility] CTA HEAD WO W CONon 07-21-19 22 [...] There is patent origin of the right E LEARNING SPECIALIST. 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 DEVELOPMENTAL ANOMALIES: takeoff of the left E LEARNING SPECIALIST. OTHER: No intracranial hemorrhage, enhancing intracranial mass [...] FERCHO ARIAS Date: 2021-07-20 04:07 Normal [facility] Covid-19 PCR (CVDTBH)on SARS-CoV-2 (COVID-19) RNA FRANK+probe Ql (Unsp spec) Not detected Normal NOT DETECTED [facility] Comment on above: Result Comment: This test is not yet approved or cleared by the [place] FDA. When there are no FDA-approved or cleared tests available, and other criteria are met, FDA can make tests available under an emergency access mechanism called an Emergency Use Authorization (EUA). The EUA for this test is supported by the [place] of Health and Human Service's (HHS's) declaration [...] consistent with SARS-CoV-2. Performed By: #### [facility] #### [facility] [address] [address] [address] Marilee Diaz [facility] 07-20-2021 Albumin [Mass/Vol] 4.3 g/dL Normal 3.5-5.7 [facility] Comment on above: Performed By: #### 0 0071, 83938 #### [facility] [address] [facility] [place] [address], [facility] ALKALINE PHOSPH 57 IU/L Normal 34-104 [facility] Comment on above: Performed By: #### 0 0071, 89348 #### [facility] [address] [place] [address], [facility] ALT [Catalytic activity/Vol] 12 U/L Normal 7-52 [facility] Comment on above: Performed By: #### 0 0071, 45734 #### [facility] [address] [place] [address], [place] AST [Catalytic activity/Vol] 13 U/L Normal 13-39 [facility] Comment on above: Performed By: #### 0 0071, 65787 #### [facility] [address] [place] [address], [facility] Bilirubin [Mass/Vol] 0.3 mg/dL Normal 0.3-1.0 [facility] Comment on above: Performed By: #### 0 0071, 44637 #### [facility] [address] [place] [address], [facility] Bilirubin.direct [Mass/Vol] 0.1 mg/dL Normal 0.0-0.2 [facility] Comment on above: Performed By: #### 0 0071, 62748 #### [facility] [address] [facility] [place] [address], [facility] Protein [Mass/Vol] 6.5 g/dL Normal 6.0-8.3 [facility] Comment on above: Performed By: #### 0 0071, 97130 #### [facility] [address] [facility] [place] [address], [facility] MRI STROKE ALERT BRAIN WO CO NTRASTon 07-20-2021 MRI STROKE ALERT BRAIN WO CONTRAST [facility] Department of Radiology [address] [place] [address] Patient Name: NATASHA BRAMBILA : 1995 Sex: F Age: Race: White Pt. Location: [facility] Patient Status: E Ordered Date: 07/20/2021 6:05:00 [...] brain. Electronically signed: Vance Jackson. Transcribed by: [email or web address], User Resident: Electronically Signed by: VANCE JACKSON @ 07/20/2021 08:18 AM Normal [facility] Comment on above: Order Comment: CVA POC GLUCOSE EDon 07-20-2021 Glucose [Mass/Vol] 90 mg/dL Normal 70-100 [facility] Comment on above: Performed By: #### 9 1690 #### [facility] [address] [place] [address], [facility] POC SARS COV2 ANTIGEN NEGATI VEon 07-20-2021 POC SARS COV2 ANTIGEN NEG Negative Normal NEGATIVE [facility] Comment on above: Result Comment: Nega [...] antigen from SARS-CoV-2 in direct nasopharyngeal swab ([employer]NE AND AIR DELIVERY SPECIALIST) specimens from individuals who are suspected of [...] Accreditation. Performed By: #### 3 2043 #### [facility] [address] [facility]. [address] POC SARS COV2 ANTIGEN NEG CANCELED Normal NEGATIVE [facility] Comment on above: Result Comment: The released value NEGATIVE was canceled by JOSE on 07/22/2021 12:28 Performed By: #### 3 2043 #### [facility] [address] [facility]. [address] POC URINE PREGNANCYon 2021 Beta HCG ( test) Ql (U) Negative Normal NEGATIVE [facility] Comment on above: Result Comment: Perf ormed in Emergency Department. Performed By: #### 8 4140 ####[facility] [facility] [place] [address], [facility] PORTABLE CHEST 1 VIEWon PORTABLE CHEST 1 VIEW [facility] Department of Radiology [address] [place] [id number] Patient Name: NATASHA BRAMBILA : 1995 Sex: F Age: Race: White Pt. Location: [facility] Patient Status: E Ordered Date: 07/20/2021 6:05:00 [...] report. Electronically signed: Parul Reilly. Transcribed by: [email or web address], User Resident: SWAPNA QUIROGA Electronically Signed by: PARUL REILLY @ 07/20/2021 06:51 AM I personally read this/these film(s) with this resident Normal [facility] Comment on above: Order Comment: evalu ate for Infiltrates PROF 14(COMP METB)on 022 Albumin [Mass/Vol] 4.0 g/dL Normal 3.4-5.0 [facility] Comment on above: Performed By: #### C MP #### [facility] [address] [address] [address] Marilee Diaz Albumin/Globulin [Mass ratio] 1.1 {ratio} Normal [facility] Comment on above: Performed By: #### C MP #### [facility] [address] [place] [address] Dr. Marilee Diaz ALP [Catalytic activity/Vol] 83 U/L Normal 46-116 [facility] Comment on above: Performed By: #### C MP #### [facility] [address] [place] [address] Dr. Marilee Diaz ALT [Catalytic activity/Vol] 20 U/L Normal 14-59 [facility] Comment on above: Performed By: #### C MP #### [facility] [address] [address] [address] Marilee Diaz Anion gap [Moles/Vol] 12.5 mmol/L Normal [facility] Comment on above: Performed By: #### C MP #### [facility] [address] [place] [address] Dr. Marilee Diaz AST [Catalytic activity/Vol] 12 U/L Critically low 15-37 [facility] Comment on above: Performed By: #### C MP #### [facility] [address] [address] [address] Marilee Diaz Bilirubin [Mass/Vol] 0.3 mg/dL Normal 0.2-1.3 [facility] Comment on above: Performed By: #### C MP #### [facility] [address] [place] [address] Dr. Marilee Diaz Calcium [Mass/Vol] 9.1 mg/dL Normal 8.5-10.1 [facility] Comment on above: Performed By: #### C MP #### [facility] [address] [place] [address] Dr. Marilee Diaz Chloride [Moles/Vol] 103 mmol/L Normal 98-107 [facility] Comment on above: Performed By: #### C MP #### [facility] [address] [address] [address] Marilee Diaz CO2 [Moles/Vol] 26.2 mmol/L Normal 22.0-30.0 [facility] Comment on above: Performed By: #### C MP #### [facility] [address] [address] [address] Marilee Diaz Creatinine [Mass/Vol] 0.63 mg/dL Normal 0.52-1.04 [facility] Comment on above: Performed By: #### C MP #### [facility] [address] [address] [address] Marilee Diaz EGFR-AF BRITISH >60 Normal >=60 [facility] Comment on above: Performed By: #### C MP #### [facility] [address] [address] [address] Marilee Diaz EGFR-NON AF BRITISH >60 Normal >=60 [facility] Comment on above: Performed By: #### C MP #### [facility] [address] [address] [address] Marilee Diaz Globulin (S) [Mass/Vol] 3.5 g/dL Normal [facility] Comment on above: Performed By: #### C MP #### [facility] [address] [address] [address] Marilee Diaz Glucose [Mass/Vol] 104 mg/dL Normal 74-106 [facility] Comment on above: Performed By: #### C MP #### [facility] [address] [address] [address] Marilee Diaz Potassium [Moles/Vol] 3.7 mmol/L Normal 3.4-5.0 [facility] Comment on above: Performed By: #### C MP #### [facility] [address] [place] [address] Dr. Marilee Diaz Protein [Mass/Vol] 7.5 g/dL Normal 6.1-8.2 [facility] Comment on above: Performed By: #### C MP #### [facility] [address] [address] [address] Marilee Diaz Sodium [Moles/Vol] 138 mmol/L Normal 137-145 [facility] Comment on above: Performed By: #### C MP #### [facility] [address] [place], [place] [address] Dr. Marilee Diaz Urea nitrogen [Mass/Vol] 15.0 mg/dL Normal 7.0-18.0 [facility] Comment on above: Performed By: #### C MP #### [facility] [address] [address] [address] Marilee Diaz Urea nitrogen/Creatinine [Mass ratio] 23.8 mg/mg Normal [facility] Comment on above: Performed By: #### C MP #### [facility] [address] [address] [address] Marilee Diaz PROTHROMBIN TIMEon 2 INR Coag (PPP) [Relative time] 0.95 {INR} Normal 0.91-1.16 [facility] Comment on above: Result Comment: ACCC [...] CHEST 1995;[id number]. Performed By: #### 5 6101, 30982 #### [facility] [address] [place] [address], [facility] PT Coag (PPP) [Time] 12.7 s Normal 12.3-14.8 [facility] Comment on above: Result Comment: ALL RESULTS MUST BE INTERPRETED WITH RESPECT TO BLOOD DRAWING ARTIFACT OR DILUTION ERROR OF ANTICOAGULANT AT THE TIME OF SAMPLING. Performed By: #### 5 6101, 94453 #### [facility] [address] [place] [address], [place] PROTIMEon 07-20-2021 INR Coag (PPP) [Relative time] 0.94 {INR} Normal [facility] Comment on above: Performed By: #### P T, PTT #### [facility] [address] [place] [address] Dr. Marilee Diaz INR GUIDELINES SEE BELOW Normal [facility] Comment on above: Result Comment: POLA RED INR: 2.0 - 3.0 CONDITIONS NOT LISTED BELOW 2.5 - 3.5 FOR PROSTHETIC HEART VALVE REPLACEMENT 2.5 - 3.5 RECURRENT THROMBOSIS Performed By: #### P T, PTT #### [facility] [address] [place] [address] Dr. Marilee Diaz PT Coag (PPP) [Time] 10.2 s Normal 9.0-11.6 [facility] Comment on above: Performed By: #### P T, PTT #### [facility] [address] [place] [address] Dr. Marilee Diaz PTTon 07-20-2021 aPTT Coag (Bld) [Time] 26.3 s Normal 22.3-36.2 [facility] Comment on above: Performed By: #### P T, PTT #### [facility] [address] [place] [address] Dr. Marilee Diaz Covid-19 PCR ([facility])on 12-21 SARS-CoV-2 (COVID-19) RNA FRANK+probe Ql (Unsp spec) Not detected Normal NOT DETECTED [facility] Comment on above: Result Comment: This test is not yet approved or cleared by the [place] FDA. When there are no FDA-approved or cleared tests available, and other criteria are met, FDA can make tests available under an emergency access mechanism called an Emergency Use Authorization (EUA). The EUA for this test is supported by the [place] of Health and Human Service's (HHS's) declaration [...] consistent with SARS-CoV-2. Performed By: #### C [facility] #### [facility] [address] [place] [address] Dr. Marilee Diaz Encounters Encounter Date Encounter Type Care Provider Facility Start: 07-01-2023 End: 07-01-2023 ambulatory BRITTANY GUTIERRES Not Available Start: 07-20-2021 End: 07-20-2021 Emergency department patient visit RAMESH PHAM Facility:[facility] Start: 07-20-2021 End: 07-20-[address] CHUY KC Facility: Start: 01-09-2021 End: 01-09-[address] VANCE OWUSU Facility: Payers Date Payer Category Payer Private Health Insurance [id number] 1995 Unknown [id number] 1995 Unknown [id number] 1995 Unknown [id number] 1995 Unknown [id number] [id number] 1959 Unknown [id number] Discharge summary note 07-31-2021 Note Date & Type Note Facility 07-31-2021 Note MR#: [id number] [facility] Pt. 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 CONSULTATIONS: Neurology/Stroke Service. HOSPITAL COURSE: A 26-year-old female presented to [facility] Emergency Department as a hospital transfer from [place] [facility] after being accepted by Dr. [...] GCS of 15 with NIH 4 in [facility] Emergency Department. Labs unremarkable. Patient received [...] follow up with Cardiology, Dr. Reynolds at [facility]. The patient to set up a [...] may be an additional personal documentation from id. Date Dict: 07/31/2021/08:19 P/Danyelle Lambert, OIL EXPERT Date Trans: 07/31/2021 08:55 P/mmo [id number] cc: Vance Owusu M.D. [address] [facility] [id number] Chuy Kc M.D. E R Physican...do Not Send [address] [facility] [address] [facility] Summary Purpose Family History No Family History Records FoundNo Family History Records FoundNo Family History Records Found Advance Directives No Advanced Directives Records FoundNo Advanced Directives Records FoundNo Advanced Directives Records Found Additional Source Comments INFORMATION SOURCE (unrecogn ized section and content) DATE CREATED AUTHOR 08/02/2021 [facility] DATE CREATED AUTHOR AUTHOR'S ORGANIZ ATION 08/02/2021 [facility] DATE CREATED AUTHOR AUTHOR'S ORGANIZ ATION 07/02/2023 [facility] Specialists EPIC FOR RECORDS PERTAINING TO [...] BE BASED ON THE PRIMARY CLINICAL RECORDS. [employer] provides no warranty or guarantee of the accuracy or completeness of information in this document.
--- NOTE | 2023-11-27 09:45 | FL_ITS ---
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 TECHNIQUE: Informed consent was obtained. A sterile vaginal speculum was introduced and, following cleansing of the cervix, a balloon-tipped catheter was inserted into the endometrial cavity. The procedure was then completed in the usual manner with water-soluble contrast. Standard level fluoroscopic mode of operation utilized. FINDINGS: FALLOPIAN TUBES: Both fallopian tubes were initially closed. Prolonged increased pressure resulted in opening of both tubes with spillage of contrast into the peritoneal cavity on the right and on the left. ENDOMETRIAL CAVITY: No scarring, filling defects, or dilatation. OTHER: Negative. FL/FL hysterosalpingography IMPRESSION: Initial closure of the fallopian tubes, successful opacification with pressure Electronically authenticated by: VANCE LUCERO Date: 11/27/2023 13:55
--- NOTE | 2023-11-27 09:45 | FL_ITS ---
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 TECHNIQUE: Informed consent was obtained. A sterile vaginal speculum was introduced and, following cleansing of the cervix, a balloon-tipped catheter was inserted into the endometrial cavity. The procedure was then completed in the usual manner with water-soluble contrast. Standard level fluoroscopic mode of operation utilized. FINDINGS: FALLOPIAN TUBES: Both fallopian tubes were initially closed. Prolonged increased pressure resulted in opening of both tubes with spillage of contrast into the peritoneal cavity on the right and on the left. ENDOMETRIAL CAVITY: No scarring, filling defects, or dilatation. OTHER: Negative. FL/FL Hysterosal cath placement IMPRESSION: Initial closure of the fallopian tubes, successful opacification with pressure Electronically authenticated by: VANCE LUCERO Date: 11/27/2023 13:55
[2023-11-27 10:22] LABS: HCG Quantitative <1 mIU/mL
--- NOTE | 2023-11-27 10:23 | SUR.PREOP ---
11/24/23 Instructed pt on procedure, date, time, and prep.
[2023-11-27 11:42] VITALS: BMI 28.9
--- NOTE | 2023-11-27 11:46 | PC.NURSE ---
1120 Pt states only has scant amount of bleeding and mild abd cramping post procedure.
== END 2023-11-27 11:25 | disposition home or self-care (01) ==
LOC: LAB 09:26
PROVIDERS: Radiology Diagnostic Radiology; PCP Family Medicine; Visit Provider Obstetrics & Gynecology
DX: N83.9 Noninflammatory disorder of ovary, fallopian tube and broad ligament, unspecified (principal)
CPT/HCPCS: 36415; 58340; 74740; 84702; Q9966

== ENCOUNTER 2023-12-11 09:48 | Outpatient (OUT) | payer OTHER, SELFPAY ==
--- OUTSIDE RECORDS SUMMARY | 2023-12-11 10:07 | XMS_ITS | CCD ---
Author Organization [facility] Care Team Providers Care Manager Operating Name Role Phone DR CHUY KC Attending [...] (Bld) [Time] 27.3 s Normal 25.0-35.0 [facility] Comment on above: Result Comment: ALL RESULTS [...] THIS PURPOSE. Performed By: #### 5 6101, [id number] #### [facility] [address] [place] [address], [place] BASIC METABOLIC PANELon 04-0 Calcium [Mass/Vol] 9.1 mg/dL Normal 8.6-10.3 [facility] Comment on above: Performed By: #### 0 0071, [id number] #### [facility] [address] [place] [address], [place] Chloride [Moles/Vol] 104 mmol/L Normal 98-107 [facility] Comment on above: Performed By: #### 0 0071, 65720 #### [facility] [address] [place] [address], [place] CO2 [Moles/Vol] 24 mmol/L Normal 21-31 [facility] Comment on above: Performed By: #### 0 0071, 21742 #### [facility] [address] [place] [address], [place] Creatinine [Mass/Vol] 0.52 mg/dL Low 0.60-1.20 [facility] Comment on above: Performed By: #### 0 0071, [id number] #### [facility] [address] [place] [address], [place] GFR/1.73 sq M.predicted among blacks MDRD (S/P/Bld) [Vol rate/Area] mL/min/{1.73_m2} Normal >60 [facility] Comment on above: Performed By: #### 0 0071, 00767 #### [facility] [address] [place] [address], [place] GFR/1.73 sq M.predicted among non-blacks MDRD (S/P/Bld) [Vol rate/Area] mL/min/{1.73_m2} Normal >60 [facility] Comment on above: Performed By: #### 0 0071, 93289 #### [facility] [address] [place] [address], [facility] Glucose [Mass/Vol] 87 mg/dL Normal 70-100 [facility] Comment on above: Performed By: #### 0 0071, 63253 #### [facility] [address] [place] [address], [facility] Potassium [Moles/Vol] 3.7 mmol/L Normal 3.5-5.1 [facility] Comment on above: Performed By: #### 0 0071, 79636 #### [facility] [address] [place] [address], [place] Sodium [Moles/Vol] 137 mmol/L Normal 136-145 [facility] Comment on above: Performed By: #### 0 0071, 37579 #### [facility] [address] [place] [address], [facility] Urea nitrogen [Mass/Vol] 13 mg/dL Normal 7-25 [facility] Comment on above: Performed By: #### 0 0071, 44720 #### [facility] [address] [facility] [place] [address], [facility] CBC AUTO DIFFon 07-20-2021 BASO # 0.0 103/ul Normal 0.0-0.1 [facility] Comment on above: Performed By: #### C BC #### [facility] [address] [address] [address] Marilee Diaz Basophils/100 WBC (Bld) 0.2 % Normal 0.2-2.0 [facility] Comment on above: Performed By: #### C BC #### [facility] [address] [address] [address] Marilee Diaz EO # 0.0 103/ul Normal 0.0-0.7 [facility] Comment on above: Performed By: #### C BC #### [facility] [address] [address] [address] Marilee Diaz Eosinophils/100 WBC (Bld) 0.4 % Critically low 0.9-7.0 [facility] Comment on above: Performed By: #### C BC #### [facility] [address] [place] [address] Dr. Marilee Diaz Erythrocyte distribution width (RBC) [Ratio] 11.9 % Normal 11.0-15.0 [facility] Comment on above: Performed By: #### C BC #### [facility] [address] [place] [address] Dr. Marilee Diaz Hematocrit (Bld) [Volume fraction] 38.1 % Normal 36.0-48.0 [facility] Comment on above: Performed By: #### C BC #### [facility] [address] [place] [address] Dr. Marilee Diaz Hemoglobin (Bld) [Mass/Vol] 12.3 g/dL Normal 12.0-16.0 [facility] Comment on above: Performed By: #### C BC #### [facility] [address] [place] [address] Dr. Marilee Diaz IG # 0.02 10e3/ul Normal 0.00-0.03 [facility] Comment on above: Performed By: #### C BC #### [facility] [address] [place] [address] Dr. Marilee Diaz IG % 0.2 % Normal 0.0-0.5 [facility] Comment on above: Performed By: #### C BC #### [facility] [address] [place] [address] Dr. Marilee Diaz LYMPH # 2.7 103/ul Normal 1.2-3.8 [facility] Comment on above: Performed By: #### C BC #### [facility] [address] [place] [address] Dr. Marilee Diaz Lymphocytes/100 WBC (Bld) 31.8 % Normal 20.5-60.0 [facility] Comment on above: Performed By: #### C BC #### [facility] [address] [place] [address] Dr. Marilee Diaz MANUAL DIFF REQ NO Normal [facility] Comment on above: Performed By: #### C BC #### [facility] [address] [address] [address] Marilee Diaz MCH (RBC) [Entitic mass] 29.4 pg Normal 26.7-34.0 [facility] Comment on above: Performed By: #### C BC #### [facility] [address] [place] [address] Dr. Marilee Diaz MCHC (RBC) [Mass/Vol] 32.3 g/dL Normal 29.9-35.[address] [facility] Comment on above: Performed By: #### C BC #### [facility] [address] [place] [address] Dr. Marilee Diaz MCV (RBC) [Entitic vol] 91.1 fL Normal 81.0-99.0 [facility] Comment on above: Performed By: #### C BC #### [facility] [address] [place] [address] Dr. Marilee Diaz MONO # 0.7 103/ul Normal 0.3-0.[address] [facility] Comment on above: Performed By: #### C BC #### [facility] [address] [place] [address] Dr. Marilee Diaz Monocytes/100 WBC (Bld) 8.3 % Normal 1.7-12.0 [facility] Comment on above: Performed By: #### C BC #### [facility] [address] [place] [address] Dr. Marilee Diaz NEUT # 5.0 103/ul Normal 1.4-6.[address] [facility] Comment on above: Performed By: #### C BC #### [facility] [address] [place] [address] Dr. Marilee Diaz Neutrophils/100 WBC (Bld) 59.1 % Normal 43.0-75.[address] [facility] Comment on above: Performed By: #### C BC #### [facility] [address] [place] [address] Dr. Marilee Diaz Platelet mean volume (Bld) [Entitic vol] 9.7 fL Normal 9.5-13.[address] [facility] Comment on above: Performed By: #### C BC #### [facility] [address] [place], [place] [address] Dr. Marilee Diaz PLT 290 103/ul Normal 150-[address] [facility] Comment on above: Performed By: #### C BC #### [facility] [address] [place], [place] [address] Dr. Marilee Diaz RBC 4.18 106/ul Critically low 4.20-5.40 [facility] Comment on above: Performed By: #### C BC #### [facility] [address] [place], [place] [address] Dr. Marilee Diaz WBC 8.4 103/ul Normal 4.0-11.[address] [facility] Comment on above: Performed By: #### C BC #### [facility] [address] [place], [place] [address] Dr. Marilee Diaz CBC COMPLETE BLOOD COUNTon 0 07-20-2021 Erythrocyte distribution width (RBC) [Ratio] 11.9 % Normal 11.5-15.0 [facility] Comment on above: Performed By: #### 5 0608 ####[facility] Hematocrit (Bld) [Volume fraction] 36.0 % Normal 36.0-45.0 [facility] Comment on above: Performed By: #### 5 0608 ####[facility] [place] [address], [facility] Hemoglobin (Bld) [Mass/Vol] 11.9 g/dL Low 12.0-15.0 [facility] Comment on above: Performed By: #### 5 0608 ####[facility] [place] [address], [facility] MCH (RBC) [Entitic mass] 29.7 pg Normal 27.0-33.0 [facility] Comment on above: Performed By: #### 5 0608 ####[facility] [id number], [place] MCHC (RBC) [Mass/Vol] 33.1 g/dL Normal 32.0-35.0 [facility] Comment on above: Performed By: #### 5 0608 ####[address] MCV (RBC) [Entitic vol] 89.8 fL Normal 82.0-98.0 [facility] Comment on above: Performed By: #### 5 0608 ####[place] [id number] Nucleated RBC/100 WBC (Bld) [Ratio] 0 % Normal 0-0 [facility] Comment on above: Performed By: #### 5 0608 ####[address] PLAT CNT 281 10*3/uL Normal 150-400 [facility] Comment on above: Performed By: #### 5 0608 ####[address] RBC (Bld) [#/Vol] 4.01 10*6/uL Normal 3.80-5.00 [facility] Comment on above: Performed By: #### 5 0608 ####[address] WBC (Bld) [#/Vol] 6.83 10*3/uL Normal 4.00-10.60 [facility] Comment on above: Performed By: #### 5 0608 ####[address] HEAD WO CONon 07-20-2021 CT [...] ARIAS Date: 2021-07-20 02:53 Normal [facility] CTA HEAD WO W CONon 07-21-19 22 [...] 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 DEVELOPMENTAL ANOMALIES: takeoff of the left DELIVERY DRIVER. OTHER: No intracranial hemorrhage, enhancing intracranial mass [...] FERCHO ARIAS Date: 2021-07-20 04:[address] [facility] Covid-19 PCR (CVDTBH)on SARS-CoV-2 (COVID-19) RNA FRANK+probe Ql (Unsp spec) Not detected Normal NOT DETECTED The [facility] Comment on above: Result Comment: This test is not yet approved or cleared by the [place] FDA. When there are no FDA-approved or cleared tests available, and other criteria are met, FDA can make tests available under an emergency access mechanism called an Emergency Use Authorization (EUA). The EUA for this test is supported by the Polymer Engineer of Health and Human Service's (HHS's) declaration [...] consistent with SARS-CoV-2. Performed By: #### [facility] #### [facility] [address] [address] [address] Marilee Diaz [facility] 07-20-2021 Albumin [Mass/Vol] 4.3 g/dL Normal 3.5-5.7 [facility] Comment on above: Performed By: #### 0 0071, 14873 #### [facility] [address] [facility] [place] [address], [facility] ALKALINE PHOSPH 57 IU/L Normal 34-104 [facility] Comment on above: Performed By: #### 0 0071, 64229 #### [facility] [address] [place] [address], [facility] ALT [Catalytic activity/Vol] 12 U/L Normal 7-52 [facility] Comment on above: Performed By: #### 0 0071, 08579 #### [facility] [address] [place] [address], [place] AST [Catalytic activity/Vol] 13 U/L Normal 13-39 [facility] Comment on above: Performed By: #### 0 0071, 64613 #### [facility] [address] [facility] [place] [address], [facility] Bilirubin [Mass/Vol] 0.3 mg/dL Normal 0.3-1.0 [facility] Comment on above: Performed By: #### 0 0071, 82320 #### [facility] [address] [facility] [place] [address], [facility] Bilirubin.direct [Mass/Vol] 0.1 mg/dL Normal 0.0-0.2 [facility] Comment on above: Performed By: #### 0 0071, 94909 #### [facility] [address] [facility] [place] [address], [facility] Protein [Mass/Vol] 6.5 g/dL Normal 6.0-8.3 [facility] Comment on above: Performed By: #### 0 0071, 27146 #### [facility] [address] [facility] [address], [facility] MRI STROKE ALERT BRAIN WO CO NTRASTon 07-20-2021 MRI STROKE ALERT BRAIN WO CONTRAST [facility] Department of Radiology [address] [place] [address] Patient Name: NATASHA BRAMBILA : 1995 Sex: F Age: Race: White Pt. Location: [facility] Patient Status: E Ordered Date: 07/20/2021 [...] brain. Electronically signed: Vance Jackson. Transcribed by: [email or web address], User Resident: Electronically Signed by: VANCE JACKSON @ 07/20/2021 08:18 AM Normal [facility] Comment on above: Order Comment: CVA POC GLUCOSE EDon 07-20-2021 Glucose [Mass/Vol] 90 mg/dL Normal 70-100 [facility] Comment on above: Performed By: #### 9 1690 #### [facility] [address] [place] [address], [facility] POC SARS COV2 ANTIGEN NEGATI VEon 07-20-2021 POC SARS COV2 ANTIGEN NEG Negative Normal NEGATIVE [facility] Comment on above: Result Comment: Nega tive [...] antigen from SARS-CoV-2 in direct nasopharyngeal swab (PRESS CLIPPER) specimens from individuals who are suspected of [...] Accreditation. Performed By: #### 3 2043 #### [facility] [address] [facility]. [address] POC SARS COV2 ANTIGEN NEG CANCELED Normal NEGATIVE [facility] Comment on above: Result Comment: The released value NEGATIVE was canceled by JOSE on 07/22/2021 12:28 Performed By: #### 3 2043 #### [facility] [address] [facility]. [address] POC URINE PREGNANCYon 2021 Beta HCG ( test) Ql (U) Negative Normal NEGATIVE [facility] Comment on above: Result Comment: Perf ormed in Emergency Department. Performed By: #### 8 4140 ####[facility] [facility] [address], [facility] PORTABLE CHEST 1 VIEWon PORTABLE CHEST 1 VIEW [facility] Department of Radiology [address] [place] [id number] Patient Name: NATASHA BRAMBILA : 1995 Sex: F Age: Race: White Pt. Location: [facility] Patient Status: E Ordered Date: 07/20/2021 [...] report. Electronically signed: Parul Reilly. Transcribed by: [email or web address], User Resident: SWAPNA QUIROGA Electronically Signed by: PARUL REILLY @ 07/20/2021 06:51 AM I personally read this/these film(s) with this resident Normal [facility] Comment on above: Order Comment: evalu ate for Infiltrates PROF 14(COMP METB)on 022 Albumin [Mass/Vol] 4.0 g/dL Normal 3.4-5.0 [facility] Comment on above: Performed By: #### C MP #### [facility] [address] [address] [address] Marilee Diaz Albumin/Globulin [Mass ratio] 1.1 {ratio} Normal [facility] Comment on above: Performed By: #### C MP #### [facility] [address] [place] [address] Dr. Marilee Diaz ALP [Catalytic activity/Vol] 83 U/L Normal 46-116 [facility] Comment on above: Performed By: #### C MP #### [facility] [address] [place] [address] Dr. Marilee Diaz ALT [Catalytic activity/Vol] 20 U/L Normal 14-59 [facility] Comment on above: Performed By: #### C MP #### [facility] [address] [address] [address] Marilee Diaz Anion gap [Moles/Vol] 12.5 mmol/L Normal [facility] Comment on above: Performed By: #### C MP #### [facility] [address] [place] [address] Dr. Marilee Diaz AST [Catalytic activity/Vol] 12 U/L Critically low 15-37 [facility] Comment on above: Performed By: #### C MP #### [facility] [address] [address] [address] Marilee Diaz Bilirubin [Mass/Vol] 0.3 mg/dL Normal 0.2-1.3 [facility] Comment on above: Performed By: #### C MP #### [facility] [address] [place] [address] Dr. Marilee Diaz Calcium [Mass/Vol] 9.1 mg/dL Normal 8.5-10.1 [facility] Comment on above: Performed By: #### C MP #### [facility] [address] [place] [address] Dr. Marilee Diaz Chloride [Moles/Vol] 103 mmol/L Normal 98-[address] [facility] Comment on above: Performed By: #### C MP #### [facility] [address] [address] [address] Marilee Diaz CO2 [Moles/Vol] 26.2 mmol/L Normal 22.0-30.0 The [facility] Comment on above: Performed By: #### C MP #### [facility] [address] [address] [address] Marilee Diaz Creatinine [Mass/Vol] 0.63 mg/dL Normal 0.52-1.[address] [facility] Comment on above: Performed By: #### C MP #### [facility] [address] [address] [address] Marilee Diaz EGFR-AF MACANESE >60 Normal >=60 The [facility] Comment on above: Performed By: #### C MP #### [facility] [address] [address] [address] Marilee Diaz EGFR-NON AF MACANESE >60 Normal >=[address] [facility] Comment on above: Performed By: #### C MP #### [facility] [address] [address] [address] Marilee Diaz Globulin (S) [Mass/Vol] 3.5 g/dL Normal [facility] Comment on above: Performed By: #### C MP #### [facility] [address] [address] [address] Marilee Diaz Glucose [Mass/Vol] 104 mg/dL Normal 74-106 [facility] Comment on above: Performed By: #### C MP #### [facility] [address] [address] [address] Marilee Diaz Potassium [Moles/Vol] 3.7 mmol/L Normal 3.4-5.[address] [facility] Comment on above: Performed By: #### C MP #### [facility] [address] [place] [address] Dr. Marilee Diaz Protein [Mass/Vol] 7.5 g/dL Normal 6.1-8.2 [facility] Comment on above: Performed By: #### C MP #### [facility] [address] [address] [address] Marilee Diaz Sodium [Moles/Vol] 138 mmol/L Normal 137-145 [facility] Comment on above: Performed By: #### C MP #### [facility] [address] [place], [place] [address] Dr. Marilee Diaz Urea nitrogen [Mass/Vol] 15.0 mg/dL Normal 7.0-18.0 [facility] Comment on above: Performed By: #### C MP #### [facility] [address] [address] [address] Marilee Diaz Urea nitrogen/Creatinine [Mass ratio] 23.8 mg/mg Normal [facility] Comment on above: Performed By: #### C MP #### [facility] [address] [address] [address] Marilee Diaz PROTHROMBIN TIMEon 2 INR Coag (PPP) [Relative time] 0.95 {INR} Normal 0.91-1.16 [facility] Comment on above: Result Comment: ACCC P [...] CHEST 1995;[id number]. Performed By: #### 5 6101, 04851 #### [facility] [address] [place] [address], [facility] PT Coag (PPP) [Time] 12.7 s Normal 12.3-14.8 [facility] Comment on above: Result Comment: ALL RESULTS MUST BE INTERPRETED WITH RESPECT TO BLOOD DRAWING ARTIFACT OR DILUTION ERROR OF ANTICOAGULANT AT THE TIME OF SAMPLING. Performed By: #### 5 6101, 02345 #### [facility] [address] [place] [address], [place] PROTIMEon 07-20-2021 INR Coag (PPP) [Relative time] 0.94 {INR} Normal The [facility] Comment on above: Performed By: #### P T, PTT #### [facility] [address] [place] [address] Dr. Marilee Diaz INR GUIDELINES SEE BELOW Normal The [facility] Comment on above: Result Comment: POLA RED INR: 2.0 - 3.0 CONDITIONS NOT LISTED BELOW 2.5 - 3.5 FOR PROSTHETIC HEART VALVE REPLACEMENT 2.5 - 3.5 RECURRENT THROMBOSIS Performed By: #### P T, PTT #### [facility] [address] [place] [address] Dr. Marilee Diaz PT Coag (PPP) [Time] 10.2 s Normal 9.0-11.[address] [facility] Comment on above: Performed By: #### P T, PTT #### [facility] [address] [place] [address] Dr. Marilee Diaz PTTon 07-20-2021 aPTT Coag (Bld) [Time] 26.3 s Normal 22.3-36.[address] [facility] Comment on above: Performed By: #### P T, PTT #### [facility] [address] [place] [address] Dr. Marilee Diaz Covid-19 PCR ([facility])on 12-21 SARS-CoV-2 (COVID-19) RNA FRANK+probe Ql (Unsp spec) Not detected Normal NOT DETECTED The [facility] Comment on above: Result Comment: This test is not yet approved or cleared by the [place] FDA. When there are no FDA-approved or cleared tests available, and other criteria are met, FDA can make tests available under an emergency access mechanism called an Emergency Use Authorization (EUA). The EUA for this test is supported by the Polymer Engineer of Health and Human Service's (HHS's) declaration [...] consistent with SARS-CoV-2. Performed By: #### [facility] #### [facility] [address] [place] [address] Dr. Marilee Diaz Encounters Encounter Date Encounter Type Care Provider Facility Start: 07-01-2023 End: 07-01-2023 ambulatory BRITTANY GUTIERRES Not Available Start: 07-20-2021 End: 07-20-2021 Emergency department patient visit RAMESH PHAM Facility:[facility] Start: 07-20-2021 End: 07-20-[address] CHUY KC Facility: Start: 01-09-2021 End: 01-09-[address] VANCE OWUSU Facility: Payers Date Payer Category Payer Private Health Insurance [id number] 1995 Unknown [id number] [id number] 1995 Unknown [id number] [id number] [id number] 1995 Unknown [id number] 1995 Unknown [id number] [id number] 1959 Unknown [id number] Discharge summary note 07-31-2021 Note Date & Type Note Facility 07-31-2021 Note MR#: [id number] [facility] Pt. 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 CONSULTATIONS: Neurology/Stroke Service. HOSPITAL COURSE: A 26-year-old female presented to [facility] Emergency Department as a hospital transfer from [facility] after being accepted by Dr. [...] GCS of 15 with NIH 4 in [facility] Emergency Department. Labs unremarkable. Patient received [...] follow up [facility] [facility]. The patient to set up a followup [...] may be an additional personal documentation from [place]. Date Dict: 07/31/2021/08:19 P/Danyelle Lambert, SAFETY TRAINER Date Trans: 07/31/2021 08:55 P/mmo [id number] cc: Vance Owusu M.D. [address] [facility] [id number] Chuy Kc M.D. E R Physican...do Not Send [address] [facility] [id number] [facility] Summary Purpose Family History No Family History Records FoundNo Family History Records FoundNo Family History Records Found Advance Directives No Advanced Directives Records FoundNo Advanced Directives Records FoundNo Advanced Directives Records Found Additional Source Comments INFORMATION SOURCE (unrecogn ized section and content) DATE CREATED AUTHOR 08/02/2021 [facility] DATE CREATED AUTHOR AUTHOR'S ORGANIZ ATION 08/02/2021 [facility] DATE CREATED AUTHOR AUTHOR'S ORGANIZ ATION 07/02/2023 [facility] EPIC FOR RECORDS PERTAINING [...] BE BASED ON THE PRIMARY CLINICAL RECORDS. [employer] provides no warranty or guarantee of the accuracy or completeness of information in this document.
[2023-12-12 04:08] LABS: Progesterone 28.4 ng/mL (.)
== END 2023-12-11 09:49 | disposition home or self-care (01) ==
LOC: LAB 09:49
PROVIDERS: PCP Family Medicine; Visit Provider Obstetrics & Gynecology
DX: E34.9 Endocrine disorder, unspecified (principal); N93.9 Abnormal uterine and vaginal bleeding, unspecified; E28.2 Polycystic ovarian syndrome
CPT/HCPCS: 36415; 84144

== ENCOUNTER 2024-03-08 07:45 | Outpatient (OUT) | payer OTHER, SELFPAY ==
--- OUTSIDE RECORDS SUMMARY | 2024-03-08 08:06 | XMS_ITS | CCD ---
Author Organization [facility] Restalo ion [facility] Care Team Providers Care Zipper Lining Folder Name Role Phone RENO, DR CHUY Sarmiento Attending Unavailable DEFRANCE, DR WOODARD Primary Care Unavailable KC, DR CHUY Sarmiento Admitting Unavailable KC, DR CHUY Sarmiento Consulting Unavailable Arias, Fercho Consulting Unavailable DEFRANCE, DR WOODARD Admitting Unavailable DEFRANCE, DR WOODARD Consulting Unavailable DEFRANCE, DR WOODARD Attending Unavailable STEENHOFF, RAMESH Attending Unavailable STEENHOFF, ARMESH Admitting Unavailable DEFRANCE, VANCE Primary Care Unavailable CHUY KC Referring Unavailable BRITTANY GUTIERRES Attending Unavailable DEFRANCE, VANCE Garcia Attending Unavailable FRANCOISE, VANCE Garcia Referring Unavailable MICHELERANCEVANCE Primary Care Unavailable MICHELERANCEVANCE. Referring Unavailable MICHELERANCE, VANCE Garcia. Primary Care Unavailable Allergies Allergy Classification Reported Allergen(s) Allergy Type Date of Onset Reaction(s) Facility (2 sources) Sulfamethoxazole / Trimethoprim; Translations: [SULFAMETHOXAZOLE-TR IMETHOPRIM] Drug Allergy 8 [facility] Repository Problems Active Problems Problem Classification Problem Date Documented Da te Episodic/Chronic Malaise and fatigue (4 sources) Weakness; Translations: [WEAKNESS] Onset: 07-20-2021 Episodic Unclassified (4 sources) CONTACT W/AND (SUSP) EXPOS COVID-19; Translations: [CONTACT W/AND (SUSP) EXPOS COVID-19] Onset: 01-12-2021 Unclassified (1 source) Annual Exam Onset: 12-31-2023 Past or Other Problems Problem Classification Problem Date Documented Da te Episodic/Chronic Unclassified (1 source) CONTACT W/AND (SUSP) EXPOS COVID-19; Translations: [CONTACT W/AND (SUSP) EXPOS COVID-19] Onset: 01-09-2021 Results Test Name Value Interpretation Reference Range Facil ity GLUCOSEon 01-08-2024 Glucose [Mass/Vol] 94 mg/dL Normal 65-99 [facility] Comment on above: Performed By: #### 2 345-7 #### [facility] ([id number]) [address] [place] [address] APTTon 07-20-2021 aPTT Coag (Bld) [Time] 27.3 s Normal 25.0-35.0 [facility] Comment on above: Result Comment: [...] THIS PURPOSE. Performed By: #### 5 6101, 58121 #### [facility] [address] [place] [address], [facility] BASIC METABOLIC PANELon Calcium [Mass/Vol] 9.1 mg/dL Normal 8.6-10.3 [facility] Comment on above: Performed By: #### 0 0071, 40561 #### [facility] [address] [place] [address], [facility] Chloride [Moles/Vol] 104 mmol/L Normal 98-107 [facility] Comment on above: Performed By: #### 0 0071, 50654 #### [facility] [address] [place] [address], [facility] CO2 [Moles/Vol] 24 mmol/L Normal 21-31 [facility] Comment on above: Performed By: #### 0 0071, 47181 #### [facility] [address] [place] [id number], [facility] Creatinine [Mass/Vol] 0.52 mg/dL Low 0.60-1.20 [facility] Comment on above: Performed By: #### 0 0071, 61563 #### [facility] [address] [place] [address], [place] GFR/1.73 sq M.predicted among blacks MDRD (S/P/Bld) [Vol rate/Area] mL/min/{1.73_m2} Normal >60 [facility] Comment on above: Performed By: #### 0 0071, 32242 #### [facility] [address] [place] [address], [place] GFR/1.73 sq M.predicted among non-blacks MDRD (S/P/Bld) [Vol rate/Area] mL/min/{1.73_m2} Normal >60 [facility] Comment on above: Performed By: #### 0 0071, 57620 #### [facility] [address] [place] [address], [place] Glucose [Mass/Vol] 87 mg/dL Normal 70-100 [facility] Comment on above: Performed By: #### 0 0071, 98019 #### [facility] [address] [place] [address], [place] Potassium [Moles/Vol] 3.7 mmol/L Normal 3.5-5.1 [facility] Comment on above: Performed By: #### 0 0071, 64421 #### [facility] [address] [place] [address], [place] Sodium [Moles/Vol] 137 mmol/L Normal 136-145 [facility] Comment on above: Performed By: #### 0 0071, 65515 #### [facility] [address] [place] [address], [place] Urea nitrogen [Mass/Vol] 13 mg/dL Normal 7-25 [facility] Comment on above: Performed By: #### 0 0071, 42087 #### [facility] [address] [place] [address], [place] CBC AUTO DIFFon 07-20-2021 BASO # 0.0 103/ul Normal 0.0-0.1 [facility] Comment on above: Performed By: #### C BC #### [facility] [address] [place] [address] Dr. Marilee Diaz Basophils/100 WBC (Bld) 0.2 % Normal 0.2-2.0 [facility] Comment on above: Performed By: #### C BC #### [facility] [address] [place] [address] Dr. Marilee Diaz EO # 0.0 103/ul Normal 0.0-0.7 [facility] Comment on above: Performed By: #### C BC #### [facility] [address] [place] [address] Dr. Marilee Diaz Eosinophils/100 WBC (Bld) 0.4 % Critically low 0.9-7.0 [facility] Comment on above: Performed By: #### C BC #### [facility] [address] [place] [address] Dr. Marilee Diaz Erythrocyte distribution width (RBC) [Ratio] 11.9 % Normal 11.0-15.0 [facility] Comment on above: Performed By: #### C BC #### [facility] [address] [place] [address] Dr. Marilee Diaz Hematocrit (Bld) [Volume fraction] 38.1 % Normal 36.0-48.0 [facility] Comment on above: Performed By: #### C BC #### [facility] [address] [place] [address] Dr. Marilee Diaz Hemoglobin (Bld) [Mass/Vol] 12.3 g/dL Normal 12.0-16.0 [facility] Comment on above: Performed By: #### C BC #### [facility] [address] [place] [address] Dr. Marilee Diaz IG # 0.02 10e3/ul Normal 0.00-0.03 [facility] Comment on above: Performed By: #### C BC #### [facility] [address] [place] [address] Dr. Marilee Diaz IG % 0.2 % Normal 0.0-0.5 [facility] Comment on above: Performed By: #### C BC #### [facility] [address] [place] [address] Dr. Marilee Diaz LYMPH # 2.7 103/ul Normal 1.2-3.8 [facility] Comment on above: Performed By: #### C BC #### [facility] [address] [place] [address] Dr. Marilee Diaz Lymphocytes/100 WBC (Bld) 31.8 % Normal 20.5-60.0 [facility] Comment on above: Performed By: #### C BC #### [facility] [address] [place] [address] Dr. Marilee Diaz MANUAL DIFF REQ NO Normal [facility] Comment on above: Performed By: #### C BC #### [facility] [address] [place] [address] Dr. Marilee Diaz MCH (RBC) [Entitic mass] 29.4 pg Normal 26.7-34.0 [facility] Comment on above: Performed By: #### C BC #### [facility] [address] [place] [address] Dr. Marilee Diaz MCHC (RBC) [Mass/Vol] 32.3 g/dL Normal 29.9-35.2 [facility] Comment on above: Performed By: #### C BC #### [facility] [address] [place] [address] Dr. Marilee Diaz MCV (RBC) [Entitic vol] 91.1 fL Normal 81.0-99.0 [facility] Comment on above: Performed By: #### C BC #### [facility] [address] [place] [address] Dr. Marilee Diaz MONO # 0.7 103/ul Normal 0.3-0.8 [facility] Comment on above: Performed By: #### C BC #### [facility] [address] [place] [address] Dr. Marilee Diaz Monocytes/100 WBC (Bld) 8.3 % Normal 1.7-12.0 [facility] Comment on above: Performed By: #### C BC #### [facility] [address] [place] [address] [address] Marilee Diaz NEUT # 5.0 103/ul Normal 1.4-6.5 [facility] Comment on above: Performed By: #### C BC #### [facility] [address] [place] [address] [address] Marilee Diaz Neutrophils/100 WBC (Bld) 59.1 % Normal 43.0-75.0 [facility] Comment on above: Performed By: #### C BC #### [facility] [address] [place] [address] [address] Marilee Diaz Platelet mean volume (Bld) [Entitic vol] 9.7 fL Normal 9.5-13.5 [facility] Comment on above: Performed By: #### C BC #### [facility] [address] [place] [address] Dr. Marilee Diaz PLT 290 103/ul Normal 150-450 [facility] Comment on above: Performed By: #### C BC #### [facility] [address] [place] [address] [address] Marilee Diaz RBC 4.18 106/ul Critically low 4.20-5.40 [facility] Comment on above: Performed By: #### C BC #### [facility] [address] [place] [address] Dr. Marilee Diaz WBC 8.4 103/ul Normal 4.0-11.0 [facility] Comment on above: Performed By: #### C BC #### [facility] [address] [place] [address] [address] Marilee Diaz CBC COMPLETE BLOOD COUNTon 0 07-20-2021 Erythrocyte distribution width (RBC) [Ratio] 11.9 % Normal 11.5-15.0 [facility] Comment on above: Performed By: #### 5 0608 ####[place] [address] [place] [address], [facility] Hematocrit (Bld) [Volume fraction] 36.0 % Normal 36.0-45.0 [facility] Comment on above: Performed By: #### 5 0608 ####[facility] [facility] Hemoglobin (Bld) [Mass/Vol] 11.9 g/dL Low 12.0-15.0 [facility] Comment on above: Performed By: #### 5 0608 ####[facility] [facility].[address] MCH (RBC) [Entitic mass] 29.7 pg Normal 27.0-33.0 [facility] Comment on above: Performed By: #### 5 0608 ####[facility] [facility].[address] MCHC (RBC) [Mass/Vol] 33.1 g/dL Normal 32.0-35.0 [facility] Comment on above: Performed By: #### 5 0608 ####[facility] [facility].[address] MCV (RBC) [Entitic vol] 89.8 fL Normal 82.0-98.0 [facility] Comment on above: Performed By: #### 5 0608 ####[place] [id number] [facility].[address] Nucleated RBC/100 WBC (Bld) [Ratio] 0 % Normal 0-0 [facility] Comment on above: Performed By: #### 5 0608 ####[facility] [place] [address], [facility] PLAT CNT 281 10*3/uL Normal 150-400 [facility] Comment on above: Performed By: #### 5 0608 ####[facility] [place] [address], [facility] RBC (Bld) [#/Vol] 4.01 10*6/uL Normal 3.80-5.00 [facility] Comment on above: Performed By: #### 5 0608 ####[facility] WBC (Bld) [#/Vol] 6.83 10*3/uL Normal 4.00-10.60 [facility] Comment on above: Performed By: #### 5 0608 ####[facility] HEAD WO CONon 07-20-2021 CT [...] 02:53 Normal [facility] CTA HEAD WO W CONon 07-21-19 22 [...] There is patent origin of the right [employer]. 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 OTHER: No intracranial hemorrhage, enhancing intracranial mass [...] FERCHO ARIAS Date: 2021-07-20 04:07 Normal [facility] Covid-19 PCR (CVDTBH)on SARS-CoV-2 (COVID-19) RNA FRANK+probe Ql (Unsp spec) Not detected Normal NOT DETECTED [facility] Comment on above: Result Comment: This test is not yet approved or cleared by the [place] FDA. When there are no FDA-approved or cleared tests available, and other criteria are met, FDA can make tests available under an emergency access mechanism called an Emergency Use Authorization (EUA). The EUA for this test is supported by the Senior Information Security Consultant of Health and Human Service's (HHS's) declaration [...] SARS-CoV-2. Performed By: #### C VDTB #### [facility] [address] [place] [address] Dr. Marilee Diaz LIVER BATTERYon 07-20-2021 Albumin [Mass/Vol] 4.3 g/dL Normal 3.5-5.7 [facility] Comment on above: Performed By: #### 0 0071, 58499 #### [facility] [address] [place] [address], [place] ALKALINE PHOSPH 57 IU/L Normal 34-104 [facility] Comment on above: Performed By: #### 0 0071, 12285 #### [facility] [address] [place] [address], [place] ALT [Catalytic activity/Vol] 12 U/L Normal 7-52 [facility] Comment on above: Performed By: #### 0 0071, 79504 #### [facility] [address] [place] [address], [place] AST [Catalytic activity/Vol] 13 U/L Normal 13-39 [facility] Comment on above: Performed By: #### 0 0071, 00187 #### [facility] [address] [place] [address], [place] Bilirubin [Mass/Vol] 0.3 mg/dL Normal 0.3-1.0 [facility] Comment on above: Performed By: #### 0 0071, 42309 #### [facility] [address] [place] [address], [place] Bilirubin.direct [Mass/Vol] 0.1 mg/dL Normal 0.0-0.2 [facility] Comment on above: Performed By: #### 0 0071, 90872 #### [facility] [address] [place] [address], [place] Protein [Mass/Vol] 6.5 g/dL Normal 6.0-8.3 [facility] Comment on above: Performed By: #### 0 0071, 18476 #### [address] MRI STROKE ALERT BRAIN WO CO NTRASTon 07-20-2021 MRI STROKE ALERT BRAIN WO CONTRAST [facility] Department of Radiology [address] [place] [id number] Patient Name: NATASHA BRAMBILA : 1995 Sex: F Age: Race: White Pt. Location: [facility] Patient Status: E Ordered Date: 07/20/2021 [...] brain. Electronically signed: Vance Jackson. Transcribed by: [email or web address], User Resident: Electronically Signed by: VANCE JACKSON @ 07/20/2021 08:18 AM Normal [facility] Comment on above: Order Comment: CVA POC GLUCOSE EDon 07-20-2021 Glucose [Mass/Vol] 90 mg/dL Normal 70-100 [facility] Comment on above: Performed By: #### 9 1690 #### [facility] [address] POC SARS COV2 ANTIGEN NEGATI VEon 07-20-2021 POC SARS COV2 ANTIGEN NEG Negative Normal NEGATIVE [facility] Comment on above: Result Comment: [...] antigen from SARS-CoV-2 in direct nasopharyngeal swab (CHIEF RESERVOIR ENGINEERING) specimens from individuals who are suspected of [...] Accreditation. Performed By: #### 3 2044 #### [facility] [address] [place] [address], [facility] POC SARS COV2 ANTIGEN NEG CANCELED Normal NEGATIVE [facility] Comment on above: Result Comment: The released value NEGATIVE was canceled by JOSE on 07/22/2021 12:28 Performed By: #### 3 4 #### [facility] [address] [place] [address], [facility] POC URINE PREGNANCYon 2021 Beta HCG ( test) Ql (U) Negative Normal NEGATIVE [facility] Comment on above: Result Comment: Perf ormed in Emergency Department. Performed By: #### 8 4140 ####[facility] [place] [address], [facility] PORTABLE CHEST 1 VIEWon PORTABLE CHEST 1 VIEW [facility] Department of Radiology [address] [place] [id number] Patient Name: NATASHA BRAMBILA : 1995 Sex: F Age: Race: White Pt. Location: [facility] Patient Status: E Ordered Date: 07/20/2021 [...] report. Electronically signed: Parul Reilly. Transcribed by: [email or web address], User Resident: SWAPNA QUIROGA Electronically Signed by: PARUL REILLY @ 07/20/2021 06:51 AM I personally read this/these film(s) with this resident Normal [facility] Comment on above: Order Comment: evalu ate for Infiltrates PROF 14(COMP METB)on 022 Albumin [Mass/Vol] 4.0 g/dL Normal 3.4-5.0 [facility] Comment on above: Performed By: #### C MP #### [facility] [address] [place] [address] Dr. Marilee Diaz Albumin/Globulin [Mass ratio] 1.1 {ratio} Normal [facility] Comment on above: Performed By: #### C MP #### [facility] [address] [place] [address] Dr. Marilee Diaz ALP [Catalytic activity/Vol] 83 U/L Normal 46-116 [facility] Comment on above: Performed By: #### C MP #### [facility] [address] [place] [address] Dr. Marilee Diaz ALT [Catalytic activity/Vol] 20 U/L Normal 14-59 [facility] Comment on above: Performed By: #### C MP #### [facility] [address] [place] [address] Dr. Marilee Diaz Anion gap [Moles/Vol] 12.5 mmol/L Normal [facility] Comment on above: Performed By: #### C MP #### [facility] [address] [place] [address] Dr. Marilee Diaz AST [Catalytic activity/Vol] 12 U/L Critically low 15-37 [facility] Comment on above: Performed By: #### C MP #### [facility] [address] [address] [address] Marilee Diaz Bilirubin [Mass/Vol] 0.3 mg/dL Normal 0.2-1.3 [facility] Comment on above: Performed By: #### C MP #### [facility] [address] [address] [address] Marilee Diaz Calcium [Mass/Vol] 9.1 mg/dL Normal 8.5-10.1 [facility] Comment on above: Performed By: #### C MP #### [facility] [address] [place] [address] Dr. Marilee Diaz Chloride [Moles/Vol] 103 mmol/L Normal 98-107 [facility] Comment on above: Performed By: #### C MP #### [facility] [address] [place] [address] Dr. Marilee Diaz CO2 [Moles/Vol] 26.2 mmol/L Normal 22.0-30.0 [facility] Comment on above: Performed By: #### C MP #### [facility] [address] [place] [address] Dr. Marilee Diaz Creatinine [Mass/Vol] 0.63 mg/dL Normal 0.52-1.04 [facility] Comment on above: Performed By: #### C MP #### [facility] [address] [place] [address] Dr. Marilee Diaz EGFR-AF MARSHALLESE >60 Normal >=60 The [facility] Comment on above: Performed By: #### C MP #### [facility] [address] [place] [address] Dr. Marilee Diaz EGFR-NON AF MARSHALLESE >60 Normal >=60 [facility] Comment on above: Performed By: #### C MP #### [facility] [address] [place] [address] Dr. Marilee Diaz Globulin (S) [Mass/Vol] 3.5 g/dL Normal [facility] Comment on above: Performed By: #### C MP #### [facility] [address] [address] [address] Marilee Diaz Glucose [Mass/Vol] 104 mg/dL Normal 74-106 [facility] Comment on above: Performed By: #### C MP #### [facility] [address] [address] [address] Marilee Diaz Potassium [Moles/Vol] 3.7 mmol/L Normal 3.4-5.0 [facility] Comment on above: Performed By: #### C MP #### [facility] [address] [address] [address] Marilee Diaz Protein [Mass/Vol] 7.5 g/dL Normal 6.1-8.2 [facility] Comment on above: Performed By: #### C MP #### [facility] [address] [address] [address] Marilee Diaz Sodium [Moles/Vol] 138 mmol/L Normal 137-145 [facility] Comment on above: Performed By: #### C MP #### [facility] [address] [address] [address] Marilee Diaz Urea nitrogen [Mass/Vol] 15.0 mg/dL Normal 7.0-18.0 [facility] Comment on above: Performed By: #### C MP #### [facility] [address] [address] [address] Marilee Diaz Urea nitrogen/Creatinine [Mass ratio] 23.8 mg/mg Normal [facility] Comment on above: Performed By: #### C MP #### [facility] [address] [address] [address] Marilee Diaz PROTHROMBIN TIMEon 2 INR Coag (PPP) [Relative time] 0.95 {INR} Normal 0.91-1.16 [facility] Comment on above: Result Comment: [facility] P RECOMMENDED INR FOR WARFARIN THERAPY ------ [...] CHEST 1995;[id number]. Performed By: #### 5 6101, 81688 #### [facility] [address] [facility]. [address] PT Coag (PPP) [Time] 12.7 s Normal 12.3-14.8 [facility] Comment on above: Result Comment: ALL RESULTS MUST BE INTERPRETED WITH RESPECT TO BLOOD DRAWING ARTIFACT OR DILUTION ERROR OF ANTICOAGULANT AT THE TIME OF SAMPLING. Performed By: #### 5 6101, 95427 #### [facility] [address] PROTIMEon 07-20-2021 INR Coag (PPP) [Relative time] 0.94 {INR} Normal [facility] Comment on above: Performed By: #### P T, PTT #### [facility] [address] [address] [address] Marilee Diaz INR GUIDELINES SEE BELOW Normal [facility] Comment on above: Result Comment: POLA RED INR: 2.0 - 3.0 CONDITIONS NOT LISTED BELOW 2.5 - 3.5 FOR PROSTHETIC HEART VALVE REPLACEMENT 2.5 - 3.5 RECURRENT THROMBOSIS Performed By: #### P T, PTT #### [facility] [address] [address] [address] Marilee Diaz PT Coag (PPP) [Time] 10.2 s Normal 9.0-11.6 [facility] Comment on above: Performed By: #### P T, PTT #### [facility] [address] [address] [address] Marilee Diaz PTTon 07-20-2021 aPTT Coag (Bld) [Time] 26.3 s Normal 22.3-36.2 [facility] Comment on above: Performed By: #### P T, PTT #### [facility] [id number] Marilee Diaz [facility]on [facility]-21 SARS-CoV-2 (COVID-19) RNA FRANK+probe Ql (Unsp spec) Not detected Normal NOT DETECTED [facility] Comment on above: Result Comment: This test is not yet approved or cleared by the [place] FDA. When there are no FDA-approved or cleared tests available, and other criteria are met, FDA can make tests available under an emergency access mechanism called an Emergency Use Authorization (EUA). The EUA for this test is supported by the Senior Information Security Consultant of Health and Human Service's (HHS's) declaration [...] SARS-CoV-2. Performed By: #### C VDTBH #### [facility] [address] [place], [place] [address] Dr. Marilee Diaz Encounters Encounter Date Encounter Type Care Provider Facility Start: 01-08-2024 End: 01-08-2024 ambulatory VANCE [facility] Start: 01-08-2024 Encounter for genera l adult medical examination without abnormal findings [facility] Start: 12-31-2023 End: 12-31-2023 [facility] Start: 12-31-2023 Encounter for liz l adult medical examination without abnormal findings VANCE Jose [facility] Start: 07-01-2023 End: 07-01-2023 ambulatory BRITTANY GUTIERRES Not Available Start: 07-20-2021 End: 07-20-2021 Emergency department patient visit RAMESH ANKIT Facility:[facility] Start: 07-20-2021 End: 07-20-[address] CHUY KC Facility:[facility] Start: 01-09-2021 End: 01-09-[address] VANCE OWUSU Facility:[facility] Payers Date Payer Category Payer Private Health Insurance [id number] 1995 Unknown [id number] 2.16.84 [id number] 1995 Unknown [id number] 2.16.84 [id number] 1995 Unknown [id number] 2.16.8 [id number] 1995 Unknown [id number] 2.16.84 [id number] 1995 Unknown [id number] 2.16.8 [id number] 1995 Unknown [id number] 2.16.8 [id number] 1959 Unknown [id number] Discharge summary note 07-31-2021 Note Date & Type Note Facility 07-31-2021 Note MR#: [id number] [facility] Pt. 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 CONSULTATIONS: Neurology/Stroke Service. HOSPITAL COURSE: A 26-year-old female presented to [facility] Emergency Department as a hospital transfer from [facility] after being accepted by Dr. [...] follow up with Cardiology, Dr. Reynolds at [facility]. The patient to set up a [...] may be an additional personal documentation from me. Date Dict: 07/31/2021/08:19 P/Danyelle Lambert CNP Date Trans: 07/31/2021 08:55 P/tuan [id number] cc: Vance Owusu M.D. [address] [facility] [id number] Chuy Kc M.D. R Physican...do Not Send [address] [facility] [address] [facility] Summary Purpose Family History No [...] and content) DATE CREATED AUTHOR 08/02/2021 [facility] DATE CREATED AUTHOR AUTHOR'S ORGANIZ ATION 08/02/2021 [facility] DATE CREATED AUTHOR AUTHOR'S ORGANIZ ATION 07/02/2023 [facility] DATE CREATED AUTHOR AUTHOR'S ORGANIZ ATION 01/02/2024 [facility] DATE CREATED AUTHOR AUTHOR'S ORGANIZ ATION 01/10/2024 [facility] FOR RECORDS PERTAINING TO PATIENTS WHO ARE [...] BE BASED ON THE PRIMARY CLINICAL RECORDS. [employer] [facility]. provides no warranty or guarantee of the accuracy or completeness of information in this document.
== END 2024-03-08 07:46 | disposition home or self-care (01) ==
LOC: LAB 07:46
PROVIDERS: PCP Family Medicine; Visit Provider Obstetrics & Gynecology
DX: N97.0 Female infertility associated with anovulation (principal); N83.9 Noninflammatory disorder of ovary, fallopian tube and broad ligament, unspecified
CPT/HCPCS: 36415; 84144

== ENCOUNTER 2024-05-25 09:03 | Outpatient (OUT) | payer OTHER, SELFPAY ==
--- OUTSIDE RECORDS SUMMARY | 2024-05-25 09:22 | XMS_ITS | CCD ---
Author Organization [facility] CliniSynh Care Team Providers Care Expansion Envelope Maker Hand Name Role Phone DR CHUY KC Attending Unavailable DEFRANCE, DR WOODARD Primary Care Unavailable RENO, DR CHUY Sarmiento Admitting Unavailable KC, DR CHUY Sarmiento Consulting Unavailable Arias, Fercho Consulting Unavailable DEFRANCE, DR WOODARD Admitting Unavailable DEFRANCE, DR WOODARD Consulting Unavailable DEFRANCE, DR WOODARD Attending Unavailable STEENHOFF, RAMESH Attending Unavailable STEENHRAMESH HERNÁNDEZ Admitting Unavailable DEFRANCE, VANCE Primary Care Unavailable CHUY KC Referring Unavailable DEFRANCE, VANCE Garcia Attending Bre MILLER, VANCE Garcia Referring Unavailable VANCE MILLER Primary Care Unavailable VANCE MILLER. Referring Unavailable VANCE MILLER. Primary Care Unavailable Defrance Vance KOROMA Primary Care Provider [phone] BRITTANY BAUTISTA Attending Unavailable BRITTANY BAUTISTA Attending Unavailable BRITTANY BAUTISTA Attending Unavailable Allergies Allergy Classification Reported Allergen(s) Allergy Type Date of Onset Reaction(s) Facility (7 sources) Sulfamethoxazole / Trimethoprim; Translations: [SULFAMETHOXAZOLE-TR IMETHOPRIM] Drug Allergy 8 [facility] Medications Current Medications Medication Drug Class(es) Dates Sig (Normalized) Sig (Original) doxycycline hyclate 100 mg oral capsule (1 source) Tetracycline-cla ss Drug Start: 10-13-2023 End: 12-12-2023 doxycycline (Vibramycin) 100 MG capsule Indications: Anovulation Take 1 capsule (100 mg) by mouth in the morning and 1 capsule (100 mg) before bedtime. Take with at least 8 ounces (large glass) of water, do not lie down for 30 minutes after. 120 capsule 10/13/2023 12/12/2023 Active 24 hr metFORMIN hydrochloride 500 mg extended release oral tablet (5 sources) Biguanide Start: 12-08-2023 End: 01-04-2025 take 1 tablet by mouth every twenty-four hours at mealtime metFORMIN XR (Glucophage-XR) 500 MG 24 hr tablet Indications: PCOS (polycystic ovarian syndrome) , Hormone disorder , Glucose intolerance Take 1 tablet (500 mg) by mouth in the evening. Take with meals Do not crush, chew, or split. 30 tablet 11 01/05/2024 01/04/2025 Active Vit-Fe Fumarate-FA ( Plus) 27-1 MG tablet (5 sources) Start: 12-31-2021 Vit-Fe Fumarate-FA ( Plus) 27-1 MG tablet 1 (one) time each day at the same time 12/31/2021 Active sertraline 50 mg oral tablet (3 sources) Serotonin Reuptake Inhibitor Start: 05-20-2024 take 1 tablet by mouth once daily Sertraline 50 mg tablet Active 50 MG PO Daily May 20, 2024 12:00am Start: 03-29-2024 take 1 tablet by nina th in the morning sertraline (Zoloft) 50 MG tablet Take 50 mg by mouth in the morning. 03/29/2024 Active Problems Active Problems Problem Classification Problem Date Documented Da te Episodic/Chronic Allergic reactions (1 source) Allergy, unspecified, initial encounter; Translations: [Allergy, unspecified, not elsewhere classified] 05-20-2024 Episodic Anxiety disorders (1 source) Mixed anxiety and depressive disorder; Translations: [Other specified anxiety disorders] 05-20-2024 Chronic Contraceptive and procreative management (2 sources) Patient encounter status; Translations: [Encounter for other procreative management] 05-03-2024 Episodic Malaise and fatigue (4 sources) Weakness; Translations: [...] Name Value Interpretation Reference Range Facil ity ALL PROGESTERONEon 4 PROGESTERONE 34.0 ng/mL . [facility] are Comment on above: Follicular phase 0.1 - 0.9 Luteal phase 1.8 - 23.9 Ovulation phase 0.1 - 12.0 First trimester 11.0 - 44.3 Second trimester 25.4 - 83.3 Third trimester 58.7 - 214.0 Postmenopausal 0.0 - 0.1 Performed at: [facility] [address] [id number] Toll Line Inspector: Fan Trotter PhD, Phone: [phone] [facility] Elastera e GLUCOSEon 01-08-2024 Glucose [Mass/Vol] 94 mg/dL Normal 65-99 [facility] Comment on above: Performed By: #### 2 [id number] #### [facility] ([id number]) [address], [address] [place] [address] ALL PROGESTERONEon 4 PROGESTERONE 28.4 ng/mL . [facility] are Comment on above: Follicular phase 0.1 - 0.9 Luteal phase 1.8 - 23.9 Ovulation phase 0.1 - 12.0 First trimester 11.0 - 44.3 Second trimester 25.4 - 83.3 Third trimester 58.7 - 214.0 Postmenopausal 0.0 - 0.1 Performed at: [facility] [address] [id number] Toll Line Inspector: Fan Trotter PhD, Phone: [phone] [employer] APTTon 07-20-2021 aPTT Coag (Bld) [Time] 27.3 s Normal 25.0-35.0 [facility] Comment on above: Result Comment: [...] THIS PURPOSE. Performed By: #### 5 6101, [id number] #### [facility] [address] BASIC METABOLIC PANELon 04-0 Calcium [Mass/Vol] 9.1 mg/dL Normal 8.6-10.3 [facility] Comment on above: Performed By: #### 0 0071, [id number] #### [facility] [address] [place] [address], [place] Chloride [Moles/Vol] 104 mmol/L Normal 98-107 [facility] Comment on above: Performed By: #### 0 0071, [id number] #### [facility] [address] [place] [address], [place] CO2 [Moles/Vol] 24 mmol/L Normal 21-31 [facility] Comment on above: Performed By: #### 0 0071, 35894 #### [facility] [address] [place] [address], [place] Creatinine [Mass/Vol] 0.52 mg/dL Low 0.60-1.20 [facility] Comment on above: Performed By: #### 0 0071, [id number] #### [facility] [address] [place] [address], [place] GFR/1.73 sq M.predicted among blacks MDRD (S/P/Bld) [Vol rate/Area] mL/min/{1.73_m2} Normal >60 [facility] Comment on above: Performed By: #### 0 0071, 18202 #### [facility] [address] [place] [address], [place] GFR/1.73 sq M.predicted among non-blacks MDRD (S/P/Bld) [Vol rate/Area] mL/min/{1.73_m2} Normal >60 [facility] Comment on above: Performed By: #### 0 0071, 48199 #### [facility] [address] [place] [address], [place] Glucose [Mass/Vol] 87 mg/dL Normal 70-100 [facility] Comment on above: Performed By: #### 0 0071, 20246 #### [facility] [address] [place] [address], [facility] Potassium [Moles/Vol] 3.7 mmol/L Normal 3.5-5.1 [facility] Comment on above: Performed By: #### 0 0071, 14349 #### [facility] [address] [place] [id number], [facility] Sodium [Moles/Vol] 137 mmol/L Normal 136-145 [facility] Comment on above: Performed By: #### 0 0071, 75648 #### [facility] [address] [place] [address], [facility] Urea nitrogen [Mass/Vol] 13 mg/dL Normal 7-25 [facility] Comment on above: Performed By: #### 0 0071, 84164 #### [facility] [address] [place], [place] [id number] [place] [address] CBC AUTO DIFFon 07-20-2021 BASO # 0.0 103/ul Normal 0.0-0.1 [facility] Comment on above: Performed By: #### C BC #### [facility] [address] [place] [address] [address] Marilee Diaz Basophils/100 WBC (Bld) 0.2 % Normal 0.2-2.0 [facility] Comment on above: Performed By: #### C BC #### [facility] [address] [place] [address] [address] Marilee Diaz EO # 0.0 103/ul Normal 0.0-0.7 [facility] Comment on above: Performed By: #### C BC #### [facility] [address] [address] [address] Marilee Diaz Eosinophils/100 WBC (Bld) 0.4 % Critically low 0.9-7.0 [facility] Comment on above: Performed By: #### C BC #### [facility] [address] [place] [address] Dr. Marilee Diaz Erythrocyte distribution width (RBC) [Ratio] 11.9 % Normal 11.0-15.0 [facility] Comment on above: Performed By: #### C BC #### [facility] [address] [place] [address] Dr. Marilee Diaz Hematocrit (Bld) [Volume fraction] 38.1 % Normal 36.0-48.0 [facility] Comment on above: Performed By: #### C BC #### [facility] [address] [place] [address] Dr. Marilee Diaz Hemoglobin (Bld) [Mass/Vol] 12.3 g/dL Normal 12.0-16.0 [facility] Comment on above: Performed By: #### C BC #### [facility] [address] [place] [address] Dr. Marilee Diaz IG # 0.02 10e3/ul Normal 0.00-0.03 [facility] Comment on above: Performed By: #### C BC #### [facility] [address] [place] [address] Dr. Marilee Diaz IG % 0.2 % Normal 0.0-0.5 [facility] Comment on above: Performed By: #### C BC #### [facility] [address] [place] [address] Dr. Marilee Diaz LYMPH # 2.7 103/ul Normal 1.2-3.8 [facility] Comment on above: Performed By: #### C BC #### [facility] [address] [place] [address] Dr. Marilee Diaz Lymphocytes/100 WBC (Bld) 31.8 % Normal 20.5-60.0 [facility] Comment on above: Performed By: #### C BC #### [facility] [address] [place] [address] Dr. Marilee Diaz MANUAL DIFF REQ NO Normal [facility] Comment on above: Performed By: #### C BC #### [facility] [address] [place] [address] Dr. Marilee Diaz MCH (RBC) [Entitic mass] 29.4 pg Normal 26.7-34.0 [facility] Comment on above: Performed By: #### C BC #### [facility] [address] [place] [address] Dr. Marilee Diza MCHC (RBC) [Mass/Vol] 32.3 g/dL Normal 29.9-35.2 [facility] Comment on above: Performed By: #### C BC #### [facility] [address] [place] [address] Dr. Marilee Diaz MCV (RBC) [Entitic vol] 91.1 fL Normal 81.0-99.0 [facility] Comment on above: Performed By: #### C BC #### [facility] [address] [place] [address] Dr. Marilee Diaz MONO # 0.7 103/ul Normal 0.3-0.8 [facility] Comment on above: Performed By: #### C BC #### [facility] [address] [place] [address] Dr. Marilee Diaz Monocytes/100 WBC (Bld) 8.3 % Normal 1.7-12.0 [facility] Comment on above: Performed By: #### C BC #### [facility] [address] [place] [address] Dr. Marilee Diaz NEUT # 5.0 103/ul Normal 1.4-6.5 [facility] Comment on above: Performed By: #### C BC #### [facility] [address] [place] [address] Dr. Marilee Diaz Neutrophils/100 WBC (Bld) 59.1 % Normal 43.0-75.0 [facility] Comment on above: Performed By: #### C BC #### [facility] [address] [place] [address] Dr. Marilee Diaz Platelet mean volume (Bld) [Entitic vol] 9.7 fL Normal 9.5-13.5 [facility] Comment on above: Performed By: #### C BC #### [facility] [address] [address] [address] Marilee Diaz PLT 290 103/ul Normal 150-450 [facility] Comment on above: Performed By: #### C BC #### [facility] [address] [place] [address] [address] Marilee Diaz RBC 4.18 106/ul Critically low 4.20-5.40 [facility] Comment on above: Performed By: #### C BC #### [facility] [address] [place] [address] [address] Marilee Diaz WBC 8.4 103/ul Normal 4.0-11.0 [facility] Comment on above: Performed By: #### C BC #### [facility] [address] [place] [address] [address] Marilee Diaz CBC COMPLETE BLOOD COUNTon 0 07-20-2021 Erythrocyte distribution width (RBC) [Ratio] 11.9 % Normal 11.5-15.0 [facility] Comment on above: Performed By: #### 5 0608 ####[facility] [place] [address], [facility] Hematocrit (Bld) [Volume fraction] 36.0 % Normal 36.0-45.0 [facility] Comment on above: Performed By: #### 5 0608 ####[facility] [place] [address], [facility] Hemoglobin (Bld) [Mass/Vol] 11.9 g/dL Low 12.0-15.0 [facility] Comment on above: Performed By: #### 5 0608 ####[facility] [place] [address], [facility] MCH (RBC) [Entitic mass] 29.7 pg Normal 27.0-33.0 [facility] Comment on above: Performed By: #### 5 0608 ####[facility] [place] [address], [facility] MCHC (RBC) [Mass/Vol] 33.1 g/dL Normal 32.0-35.0 [facility] Comment on above: Performed By: #### 5 0608 ####[facility] [facility].[address] MCV (RBC) [Entitic vol] 89.8 fL Normal 82.0-98.0 [facility] Comment on above: Performed By: #### 5 0608 ####[facility] [facility].[address] Nucleated RBC/100 WBC (Bld) [Ratio] 0 % Normal 0-0 [facility] Comment on above: Performed By: #### 5 0608 ####[place] [id number] [address] PLAT CNT 281 10*3/uL Normal 150-400 [facility] Comment on above: Performed By: #### 5 0608 ####[address] RBC (Bld) [#/Vol] 4.01 10*6/uL Normal 3.80-5.00 [facility] Comment on above: Performed By: #### 5 0608 ####[place] [id number] [address] WBC (Bld) [#/Vol] 6.83 10*3/uL Normal 4.00-10.60 [facility] Comment on above: Performed By: #### 5 0608 ####[address] HEAD WO CONon 07-20-2021 CT [...] FERCHO ARIAS Date: 2021-07-20 02:53 Normal The [facility] CTA HEAD WO W CONon 07-21-19 22 [...] There is patent origin of the right TORCH HEATER. 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 DEVELOPMENTAL ANOMALIES: takeoff of the left TORCH HEATER. OTHER: No intracranial hemorrhage, enhancing intracranial mass [...] FERCHO ARIAS Date: 2021-07-20 04:07 Normal [facility] Covid-19 PCR (CVDTB)on SARS-CoV-2 (COVID-19) RNA FRANK+probe Ql (Unsp spec) Not detected Normal NOT DETECTED [facility] Comment on above: Result Comment: This test is not yet approved or cleared by the [place] FDA. When there are no FDA-approved or cleared tests available, and other criteria are met, FDA can make tests available under an emergency access mechanism called an Emergency Use Authorization (EUA). The EUA for this test is supported by the [place] of Health and Human Service's (HHS's) declaration [...] consistent with SARS-CoV-2. Performed By: #### [facility] #### [facility] [address] [place] [address] [address] Marilee Diaz [facility] 07-20-2021 Albumin [Mass/Vol] 4.3 g/dL Normal 3.5-5.7 [facility] Comment on above: Performed By: #### 0 0071, 78738 #### [facility] [address] [facility] [place] [address], [facility] ALKALINE PHOSPH 57 IU/L Normal 34-104 [facility] Comment on above: Performed By: #### 0 0071, 33664 #### [facility] [address] [facility] [place] [address], [facility] ALT [Catalytic activity/Vol] 12 U/L Normal 7-52 [facility] Comment on above: Performed By: #### 0 0071, 60552 #### [facility] [address] [facility] [place] [address], [facility] AST [Catalytic activity/Vol] 13 U/L Normal 13-39 [facility] Comment on above: Performed By: #### 0 0071, 86914 #### [facility] [address] [facility] [address], [facility] Bilirubin [Mass/Vol] 0.3 mg/dL Normal 0.3-1.0 [facility] Comment on above: Performed By: #### 0 0071, 08296 #### [facility] [address] [facility] [place] [address], [facility] Bilirubin.direct [Mass/Vol] 0.1 mg/dL Normal 0.0-0.2 [facility] Comment on above: Performed By: #### 0 0071, 94674 #### [facility] [address] [facility] [place] [address], [facility] Protein [Mass/Vol] 6.5 g/dL Normal 6.0-8.3 [facility] Comment on above: Performed By: #### 0 0071, 94703 #### [facility] [address] [facility] [place] [address], [facility] MRI STROKE ALERT BRAIN WO CO NTRASTon 07-20-2021 MRI STROKE ALERT BRAIN WO CONTRAST [facility] Department of Radiology [address] [place] [address] Patient Name: MAX BRAMBILA : 1995 Sex: F Age: Race: White Pt. Location: [facility] Patient Status: E Ordered Date: 07/20/2021 6:05:00 [...] brain. Electronically signed: Vance Jackson. Transcribed by: [email or web address], User Resident: Electronically Signed by: VANCE JACKSON @ 07/20/2021 08:18 AM Normal [facility] Comment on above: Order Comment: CVA POC GLUCOSE EDon 07-20-2021 Glucose [Mass/Vol] 90 mg/dL Normal 70-100 [facility] Comment on above: Performed By: #### 9 1690 #### [facility] [address] [place] [address], [facility] POC SARS COV2 ANTIGEN NEGATI VEon 07-20-2021 POC SARS COV2 ANTIGEN NEG Negative Normal NEGATIVE [facility] Comment on above: Result Comment: [...] antigen from SARS-CoV-2 in direct nasopharyngeal swab (FOUNDATION DIRECTOR) specimens from individuals who are suspected of [...] Accreditation. Performed By: #### 3 4 #### [facility] [address] POC SARS COV2 ANTIGEN NEG CANCELED Normal NEGATIVE [facility] Comment on above: Result Comment: The released value NEGATIVE was canceled by JOSE on 07/22/2021 12:28 Performed By: #### 3 4 #### [facility] [address] POC URINE PREGNANCYon 2021 Beta HCG ( test) Ql (U) Negative Normal NEGATIVE [facility] Comment on above: Result Comment: Perf ormed in Emergency Department. Performed By: #### 8 4140 ####[facility] [address] PORTABLE CHEST 1 VIEWon 04-0 PORTABLE CHEST 1 VIEW [facility] Department of Radiology [address] [place] [id number] Patient Name: MAX BRAMBILA : 1995 Sex: F Age: Race: White Pt. Location: [facility] Patient Status: E Ordered Date: 07/20/2021 6:05:00 [...] report. Electronically signed: Parul Reilly. Transcribed by: [email or web address], User Resident: SWAPNA [email or web address] Electronically Signed by: PARUL REILLY @ 07/20/2021 06:51 AM I personally read this/these film(s) with this resident Normal [facility] Comment on above: Order Comment: evalu ate for Infiltrates PROF 14(COMP METB)on 04-01-2 022 Albumin [Mass/Vol] 4.0 g/dL Normal 3.4-5.0 [facility] Comment on above: Performed By: #### C MP #### [facility] [address] [place] [address] Dr. Marilee Diaz Albumin/Globulin [Mass ratio] 1.1 {ratio} Normal [facility] Comment on above: Performed By: #### C MP #### [facility] [address] [place] [address] [address] Marilee Diaz ALP [Catalytic activity/Vol] 83 U/L Normal 46-116 [facility] Comment on above: Performed By: #### C MP #### [facility] [address] [place] [address] Dr. Marilee Diaz ALT [Catalytic activity/Vol] 20 U/L Normal 14-59 [facility] Comment on above: Performed By: #### C MP #### [facility] [address] [place] [address] Dr. Marilee Diaz Anion gap [Moles/Vol] 12.5 mmol/L Normal [facility] Comment on above: Performed By: #### C MP #### [facility] [address] [place] [address] Dr. Marilee Diaz AST [Catalytic activity/Vol] 12 U/L Critically low 15-37 [facility] Comment on above: Performed By: #### C MP #### [facility] [address] [place] [address] Dr. Marilee Diaz Bilirubin [Mass/Vol] 0.3 mg/dL Normal 0.2-1.3 [facility] Comment on above: Performed By: #### C MP #### [facility] [address] [place] [address] Dr. Marilee Diaz Calcium [Mass/Vol] 9.1 mg/dL Normal 8.5-10.1 [facility] Comment on above: Performed By: #### C MP #### [facility] [address] [place] [address] Dr. Marilee Diaz Chloride [Moles/Vol] 103 mmol/L Normal 98-107 [facility] Comment on above: Performed By: #### C MP #### [facility] [address] [place] [address] [address] Marilee Diaz CO2 [Moles/Vol] 26.2 mmol/L Normal 22.0-30.0 [facility] Comment on above: Performed By: #### C MP #### [facility] [address] [place] [address] [address] Marilee Diaz Creatinine [Mass/Vol] 0.63 mg/dL Normal 0.52-1.04 [facility] Comment on above: Performed By: #### C MP #### [facility] [address] [place] [address] [address] Marilee Diaz EGFR-AF PORTUGUESE >60 Normal >=60 [facility] Comment on above: Performed By: #### C MP #### [facility] [address] [place] [address] Dr. Marilee Diaz EGFR-NON AF PORTUGUESE >60 Normal >=60 [facility] Comment on above: Performed By: #### C MP #### [facility] [address] [address] [address] Marilee Diaz Globulin (S) [Mass/Vol] 3.5 g/dL Normal [facility] Comment on above: Performed By: #### C MP #### [facility] [address] [place] [address] [address] Marilee Diaz Glucose [Mass/Vol] 104 mg/dL Normal 74-106 [facility] Comment on above: Performed By: #### C MP #### [facility] [address] [place] [address] [address] Marilee Diaz Potassium [Moles/Vol] 3.7 mmol/L Normal 3.4-5.0 [facility] Comment on above: Performed By: #### C MP #### [facility] [address] [place] [address] Dr. Marilee Diaz Protein [Mass/Vol] 7.5 g/dL Normal 6.1-8.2 [facility] Comment on above: Performed By: #### C MP #### [facility] [address] [place] [address] [address] Marilee Diaz Sodium [Moles/Vol] 138 mmol/L Normal 137-145 [facility] Comment on above: Performed By: #### C MP #### [facility] [address] [place] [address] [address] Marilee Diaz Urea nitrogen [Mass/Vol] 15.0 mg/dL Normal 7.0-18.0 [facility] Comment on above: Performed By: #### C MP #### [facility] [address] [place] [address] [address] Marilee Diaz Urea nitrogen/Creatinine [Mass ratio] 23.8 mg/mg Normal [facility] Comment on above: Performed By: #### C MP #### [facility] [facility] [address] [address] [address] Marilee Diaz PROTHROMBIN TIMEon 2 INR Coag (PPP) [Relative time] 0.95 {INR} Normal 0.91-1.16 [facility] Comment on above: Result Comment: ACCC P RECOMMENDED INR FOR WARFARIN THERAPY ------- ------- CONDITION INR PROPHYLAXIS OF VENOUS THROMBOSIS 2-3 (HIGH-RISK SURGERY) TREATMENT OF VENOUS THROMBOSIS 2-3 TREATMENT OF PULMONARY EMBOLISM 2-3 PREVENTION OF SYSTEMIC EMBOLISM: 2-3 ACUTE MYOCARDIAL INFARCTION TISSUE HEART VALVES VALVULAR HEART DISEASE ATRIAL FIBRILLATION RECURRENT SYSTEMIC EMBOLISM MECHANICAL HEART VALVE 2.5-3.5 FROM: ORAL ANTICOAGULANTS. MECHANISM OF ACTION, CLINICAL EFFECTIVENESS, AND OPTIMAL THERAPEUTIC RANGE. CHEST 1995;108:231S-246S. Performed By: #### 5 [id number], [id number] #### [facility] [address] [facility] [place] [address], [facility] PT Coag (PPP) [Time] 12.7 s Normal 12.3-14.8 [facility] Comment on above: Result Comment: ALL RESULTS MUST BE INTERPRETED WITH RESPECT TO BLOOD DRAWING ARTIFACT OR DILUTION ERROR OF ANTICOAGULANT AT THE TIME OF SAMPLING. Performed By: #### 5 6101, [id number] #### [facility] [address] [facility] [place] [address], [facility] PROTIMEon 07-20-2021 INR Coag (PPP) [Relative time] 0.94 {INR} Normal [facility] Comment on above: Performed By: #### P T, PTT #### [facility] [address] [place] [address] Dr. Marilee Diaz INR GUIDELINES SEE BELOW Normal [facility] Comment on above: Result Comment: POLA RED INR: 2.0 - 3.0 CONDITIONS NOT LISTED BELOW 2.5 - 3.5 FOR PROSTHETIC HEART VALVE REPLACEMENT 2.5 - 3.5 RECURRENT THROMBOSIS Performed By: #### P T, PTT #### [facility] [address] [place] [address] Dr. Marilee Diaz PT Coag (PPP) [Time] 10.2 s Normal 9.0-11.6 [facility] Comment on above: Performed By: #### P T, PTT #### [facility] [address] [place] [address] Dr. Marilee Diaz PTTon 07-20-2021 aPTT Coag (Bld) [Time] 26.3 s Normal 22.3-36.2 [facility] Comment on above: Performed By: #### P T, PTT #### [facility] [address] [place] [address] Dr. Marilee Diaz Covid-19 PCR ([facility])on 12-21 SARS-CoV-2 (COVID-19) RNA FRANK+probe Ql (Unsp spec) Not detected Normal NOT DETECTED [facility] Comment on above: Result Comment: This test is not yet approved or cleared by the [place] FDA. When there are no FDA-approved or cleared tests available, and other criteria are met, FDA can make tests available under an emergency access mechanism called an Emergency Use Authorization (EUA). The EUA for this test is supported by the Digital Manager of Health and Human Service's (HHS's) [...] consistent with SARS-CoV-2. Performed By: #### C [facility] #### [facility] [address] [place] [address] Dr. Marilee Diaz Vital Signs Date Time Vital Sign Value Performing Clinician Facility 05-20-2024 16:48-0500 Body height 149.86 cm [facility] 05-20-2024 16:48-0500 Body mass index (BMI) [Ratio] 27 kg/m2 [facility] 05-20-2024 16:48-0500 Body temperature 98.4 [degF] [facility] 05-20-2024 16:48-0500 Body weight 60.78 kg [facility] 05-20-2024 16:48-0500 Diastolic blood pressure 76 mm[Hg] [facility] 05-20-2024 16:48-0500 Heart rate 86 /min [facility] 05-20-2024 16:48-0500 Respiratory rate 14 /min [facility] 05-20-2024 16:48-0500 SaO2% (BldA) [Mass fraction] 99 % [facility] 05-20-2024 16:48-0500 Systolic blood pressure 114 mm[Hg] [facility] 05-03-2024 09:35-0500 Body mass index (BMI) [Ratio] 28.03 kg/m2 Brittany Michele [employer] Work Phone: [facility] 05-03-2024 09:35-0500 Body weight 62.96 kg Brittany Michele DO Work Phone: [facility] 05-03-2024 09:35-0500 Diastolic blood pressure 60 mm[Hg] Brittany Michele DO Work Phone: [facility] 05-03-2024 09:35-0500 Systolic blood pressure 110 mm[Hg] Brittany Michele DO Work Phone: [facility] Encounters Encounter Date Encounter Type Care Provider Facility Start: 05-20-2024 End: 05-20-2024 ambulatory [facility] Work Phone: Start: 05-20-2024 End: 05-20-2024 Patient encounter procedure [facility] Work Phone: Start: 05-03-2024 End: 05-03-2024 Bamboo flowsheet Brittany Michele DO Work Phone: [facility] Start: 05-03-2024 End: 05-03-2024 Bamboo flowsheet Brittany Michele DO Work Phone: [facility] Start: 05-03-2024 End: 05-03-2024 Office outpatient visit 15 minutes Brittany Michele DO Work Phone: [facility] Comment on above: Encounter for fertil ity planning Start: 05-03-2024 End: 05-03-2024 ambulatory BRITTANY MICHELE Not Available Start: 03-08-2024 End: 03-09-2024 Clinisync Result Encounter Brittany Michele DO Work Phone: [facility] Unsolicited Start: 03-08-2024 End: 03-09-2024 Clinisync Result Encounter Brittany Michele DO Work Phone: [facility] Unsolicited Start: 01-08-2024 End: 01-08-2024 ambulatory VANCE MILLER [facility] Start: 01-08-2024 Encounter for genera l adult medical examination without abnormal findings VANCE MILLER [facility] Start: 12-31-2023 End: 12-31-2023 ambulatory VANCE Garcia [facility] Start: 12-31-2023 Encounter for genera l adult medical examination without abnormal findings VANCE Garcia [facility] Start: 12-11-2023 End: 12-12-2023 Clinisync Result Encounter Brittany Michele DO Work Phone: [facility] Unsolicited Start: 12-11-2023 End: 12-12-2023 Clinisync Result Encounter Brittany Michele DO Work Phone: [facility] Unsolicited Start: 11-03-2023 End: 11-03-2023 ambulatory BRITTANY MICHELE Not Available Start: 07-01-2023 End: 07-01-2023 ambulatory BRITTANY MICHELE Not Available Start: 07-20-2021 End: 07-20-2021 Emergency department patient visit RAMESH PHAM Facility:[facility] Start: 07-20-2021 End: 07-20-[address] CHUY KC Facility: Start: 01-09-2021 End: 01-09-[address] VANCE MILLER Facility: Procedures Date Procedure Procedure Detail Performing Clinician Start: 03-08-2024 ALL PROGESTERONE Brittany Michele DO Work Phone: Start: 12-11-2023 ALL PROGESTERONE Brittany Michele DO Work Phone: Plan of Treatment Date Care Activity Detail Author Start: 09-02-2024 End: 09-02-2024 Patient encounter procedure 09/02/2024 9:40 AM EDT Office Visit [facility] [address] [place] [address] Brittany Bautista, DO [address], [place] [id number] [facility] Start: 05-03-2024 End: 05-03-2024 Patient encounter procedure 05/03/2024 9:40 AM EST Office Visit [facility] [address] [place] [address] Brittany Bautista, DO [address] [place] [address] [place] [address] Arrived [facility] Comment on above: Arrived Start: 12-21-2023 Influenza vaccination Influenz a Vaccine (#1) [facility] Immunizations Immunization Date Immunization Notes Care Provider Fa cility 02-10-2023 influenza virus vacc ine, unspecified formulation Brittany Bautista DO Work Phone: [facility] Payers Date Payer Category Payer Private Health Insurance [id number] 2022 Private Health Insurance [id number] 1995 Unknown [id number] [id number] 1995 Unknown [id number] 2.16.84 [id number] 1995 Unknown [id number] 2.16.8 [id number] 1995 Unknown [id number] 2.16.8 [id number] 1995 Unknown [id number] 2.16.8 [id number] 1995 Unknown [id number] 2.16.84 [id number] 1995 Unknown [id number] 2.16.84 [id number] 1995 Unknown [id number] 2.16.84 [id number] 1959 Unknown [id number] Social History Date Type Detail Facility Start: 06-10-2023 End: 05-20-2024 Tobacco smoking status ORIS Never smoked tobacco [facility] Start: 11-03-2023 End: 05-03-2024 Alcoholic beverage intake Lifetime non-drinker (finding) [facility] Start: 06-10-2023 History of Social function [facility] Start: 06-10-2023 Tobacco use panel [facility] Start: 06-10-2023 Alcohol Comment caffeine:2-3 c ups per day [facility] Start: 1995 Sex assigned at Female [facility] Start: 2023 Gender identity Identifies as female gender (finding) [facility] Start: 05-20-2024 Sex Female (finding) [facility] History of Present illness Narrative 05-03-2024 Luisa Munoz, INFANT AND TODDLER TEACHER - 05/03/2024 9:40 AM EST Note Date & Type Note Facility 05-03-2024 History of Presen t illness Narrative Reason for Appointment: Patient ID: Max Brambila is a 28 y.o. female who presents for Infertility Patient presents today for Consult appointment. MEDICATIONS Current Outpatient Medications Medication Instructions metFORMIN XR (GLUCOPHAGE-XR) 500 mg, Oral, Daily with evening meal, Do not crush, chew, or split. Vit-Fe Fumarate-FA ( Plus) 27-1 MG tablet Every 24 hours sertraline (ZOLOFT) 50 mg, Daily RT ALLERGIES Allergies Allergen Reactions Sulfamethoxazole-Trimethoprim Other Reaction(s): Unknown PROBLEMS Active Ambulatory Problems Diagnosis Date Noted No Active Ambulatory Problems Resolved Ambulatory Problems Diagnosis Date Noted No Resolved Ambulatory Problems No Additional Past Medical History HISTORY PAST MEDICAL HISTORY SOCIAL HISTORY History reviewed. No pertinent past medical history. Social History Tobacco Use Smoking status: Never Smokeless tobacco: Not on file Substance Use Topics Alcohol use: Never Comment: caffeine:2-3 cups per day Drug use: Not on file FAMILY HISTORY Family History Problem Relation Name Age of Onset Hypertension Mother SURGICAL HISTORY Past Surgical History: Procedure Laterality Date EYE SURGERY OVARIAN CYST REMOVAL 2011 REVIEW OF SYSTEMS Review of Systems: Review of Systems All other systems reviewed and are negative. OBJECTIVE Objective: Physical Exam Constitutional: Appearance: Normal appearance. She is well-developed. Cardiovascular: Rate and Rhythm: Normal rate and regular rhythm. Pulmonary: Effort: Pulmonary effort is normal. Breath sounds: Normal breath sounds. Abdominal: General: Bowel sounds are normal. There is no distension. Palpations: Abdomen is soft. Tenderness: There is no abdominal tenderness. There is no guarding or rebound. Musculoskeletal: General: No swelling. Normal range of motion. Right lower leg: No edema. Left lower leg: No edema. Neurological: Mental Status: She is alert and oriented to person, place, and time. Skin: General: Skin is warm and dry. Psychiatric: Mood and Affect: Mood normal. Behavior: Behavior normal. Vitals and nursing note reviewed. Exam conducted with a framework developer present. Vitals: Estimated body mass index is 28.03 kg/m as calculated from the following: Height as of 12/31/21: 4' 11 . Weight as of this encounter: 138 lb 12.8 oz. BP: 110/60 Patient's last menstrual period was 04/12/2024. ASSESSMENT & PLAN ICD-10-CM 1. Encounter for fertility planning Z31.89 Patient presents today for fertility follow. Patient was informed that she is ovulating and that it maybe beneficial for patients spouse to take Mucinex for 3 months to see if this helps. Patient will also consider IUI in the future. Patient has tried Clomid and Femara in the past to help with fertility. Patient to return to clinic for annual and PRN. Documented by Luisa Munoz LPN on behalf of: Brittany Bautista DO documented in this encounter [facility] Discharge summary note 07-31-2021 Note Date & Type Note Facility 07-31-2021 Note MR#: [id number] [facility] Pt. 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 CONSULTATIONS: Neurology/Stroke Service. HOSPITAL COURSE: A 26-year-old female presented to [facility] as a hospital transfer from [facility] after being accepted by Dr. [...] GCS of 15 with NIH 4 in [facility]. Labs unremarkable. Patient [...] follow up with Cardiology, Dr. Reynolds at [facility]. The patient to set up a followup [...] Lambert CNP Date Trans: 07/31/2021 08:55 P/tuan [id number] cc: Vance Miller M.D. [address] [facility] [address] Chuy Kc M.D. [facility] Physican...do Not Send [address] [facility] [address] [facility] Evaluation note Note Date & Type Note Facility Evaluation note Diagnosis Encounter for fertility planning documented in this encounter [facility] Evaluation note Note Date & Type Note Facility Evaluation note Diagnosis Onset Date Resolution Allergic reaction noneactive May 20, 2024 4:45pm [facility] Work Phone: Summary Purpose Family History No Family History Records FoundNo Family History Records FoundNo Family History Records FoundNo Family History Records FoundNo Family History Records Found Advance Directives Advance Directive Response Recorded Date/ Time Advance Directives No May 20, 2024 4:42pm Chief Complaint and Reason for Visit Chief Complaint Admit Date Poss allergic reaction, facial swelling May 20, 2024 4:45pm Reason for Visit Admit Date Allergic reaction May 20, 2024 4 :45pm Additional Source Comments INFORMATION SOURCE (unrecogn ized section and content) DATE CREATED AUTHOR 08/02/[address] [facility] DATE CREATED AUTHOR AUTHOR'S ORGANIZ ATION 08/02/2021 [facility] DATE CREATED AUTHOR AUTHOR'S ORGANIZ ATION 01/02/2024 [facility] DATE CREATED AUTHOR AUTHOR'S ORGANIZ ATION 01/10/2024 [facility] DATE CREATED AUTHOR AUTHOR'S ORGANIZ ATION 05/06/2024 [facility] EPIC Care Teams (unrecognized sec tion and content) Expansion Envelope Maker Hand Relationship Specialty Start Date End Date Vance Miller MD [address] [place] [address] PCP - General Family Medicine 07/01/23 Expansion Envelope Maker Hand Relationship Specialty Start Date End Date Vance Miller MD [address] [place] [address] PCP - General Family Medicine 07/01/23 Expansion Envelope Maker Hand Relationship Specialty Start Date End Date Vance Miller MD [address] [place] [address] PCP - General Family Medicine 07/01/23 Team Status: Active Member Role Status Dates Vance Miller MD Primary Care Provider Active Team Status: Inactive Member Role Status Dates Vance Miller MD Primary Care Provider Active Start: May 20, 2024 End: May 20, 2024 Yue Waller APRN Attending Provider Active Start: May 20, 2024 End: May 20, 2024 Reason for Visit (unrecogniz ed section and content) Reason Comments Infertility Goals (unrecognized section and content) Goals may be documented in a n alternate section FOR RECORDS PERTAINING TO PATIENTS WHO ARE [...] BE BASED ON THE PRIMARY CLINICAL RECORDS. [employer] provides no warranty or guarantee of the accuracy or completeness of information in this document.
[2024-05-26 04:07] LABS: Progesterone 21.1 ng/mL (.)
== END 2024-05-25 09:04 | disposition home or self-care (01) ==
LOC: LAB 09:05
PROVIDERS: PCP Family Medicine; Visit Provider Obstetrics & Gynecology
DX: N97.0 Female infertility associated with anovulation (principal); N83.9 Noninflammatory disorder of ovary, fallopian tube and broad ligament, unspecified
CPT/HCPCS: 36415; 84144

== ENCOUNTER 2024-06-21 07:49 | Outpatient (OUT) | payer OTHER, SELFPAY ==
--- OUTSIDE RECORDS SUMMARY | 2024-06-21 08:10 | XMS_ITS | CCD ---
Author Organization [facility] Care Team Providers Care Electronic Technologist Name Role Phone DR CHUY KC Attending Unavailable DEFRANCE, DR WOODARD Primary Care Unavailable RENO, DR CHUY Sarmiento Admitting Unavailable KC, DR CHUY Sarmiento Consulting Unavailable Arias, Fercho Consulting Unavailable DEFRANCE, DR WOODARD Admitting Unavailable DEFRANCE, DR WOODARD Consulting Unavailable DEFRANCE, DR WOODARD Attending Unavailable STEENHOFF, RAMESH Attending Unavailable STEENHRAMESH HERNÁNDEZ Admitting Unavailable DEFRANCEVANCE Primary Care Unavailable CHUY KC Referring Unavailable VANCE MILLER Attending VANCE Root Referring Unavailable VANCE MILLER Primary Care Unavailable VANCE MILLER Referring Unavailable VANCE MILLER Primary Care Unavailable Vance Miller MD Primary Care Provider [phone] BRITTANY BAUTISTA Attending Unavailable BRITTANY BAUTISTA Attending Unavailable BRITTANY BAUTISTA Attending Unavailable Vance Miller MD Primary Care Provider Allergies Allergy Classification Reported Allergen(s) Allergy Type Date of Onset Reaction(s) Facility (9 sources) Sulfamethoxazole / Trimethoprim; Translations: [SULFAMETHOXAZOLE-TR IMETHOPRIM] Drug Allergy 8 [facility] Medications Current Medications Medication Drug Class(es) Dates Sig (Normalized) Sig (Original) fexofenadine (1 source) Histamine-1 Receptor Antagonist fexofenadine HCl (MUCINEX ALLERGY ORAL) Take by mouth. Active letrozole 2.5 mg oral tablet (1 source) Aromatase Inhibitor Start: 12-21-2023 letrozole (FEMARA) 2.5 mg chemo tablet 12/21/2023 Active 24 hr metFORMIN hydrochloride 500 mg extended release oral tablet (7 sources) Biguanide Start: 12-08-2023 End: 01-04-2025 take [...] Vit-Fe Fumarate-FA ( Plus) 27-1 MG tablet (6 sources) Start: 12-31-2021 Vit-Fe Fumarate-FA ( Plus) 27-1 MG tablet 1 (one) time each day at the same time 12/31/2021 Active sertraline 50 mg oral tablet (4 sources) Serotonin Reuptake Inhibitor Start: 03-29-2024 take 1 tablet by mouth once daily Sertraline 50 mg tablet Active 50 MG PO Daily May 20, 2024 12:00am Completed/Discontinued Medications Medication Drug Class(es) Dates Sig (Normalized) Sig (Original) doxycycline hyclate 100 mg oral capsule (2 sources) Tetracycline-cla ss Drug Start: 10-13-2023 End: 12-31-2023 take 1 capsule by mouth at bedtime doxycycline (VIBRAMYCIN) 100 mg capsule take 1 capsule by mouth IN THE MORNING and BEFORE BEDTIME TAKE WI... (REFER TO PRESCRIPTION NOTES). 10/13/2023 12/31/2023 Discontinued (Alternate therapy) escitalopram 10 mg oral tablet (1 source) Serotonin Reuptake Inhibitor Start: 12-30-2022 End: 12-31-2023 take 1 tablet by mouth in the morning escitalopram (LEXAPRO) 10 mg tablet Take 1 tablet (10 mg total) by mouth in the morning. 30 tablet 5 12/30/2022 12/31/2023 Discontinued (Alternate therapy) Problems Active Problems Problem Classification Problem Date Documented Da te Episodic/Chronic Allergic reactions (1 source) Allergy, unspecified, initial encounter; Translations: [Allergy, unspecified, not elsewhere classified] 05-20-2024 Episodic Anxiety disorders (1 source) Mixed anxiety and depressive disorder; Translations: [Other specified anxiety disorders] 05-20-2024 Chronic Contraceptive and procreative management (2 sources) Patient encounter status; Translations: [Encounter for other procreative management] 05-03-2024 Episodic Female infertility (1 source) Anovulation; Translations: [Female infertility associated with anovulation] Onset: 05-05-2024 05-05-2024 Chronic Malaise and fatigue (4 sources) Weakness; Translations: [WEAKNESS] Onset: 07-20-2021 Episodic Other endocrine disorders (1 source) Polycystic ovary syndrome; Translations: [Polycystic ovarian syndrome] Onset: 05-05-2024 05-05-2024 Chronic Other female genital disorders (1 source) Fallopian tube disorder; Translations: [Noninflammatory disorder of ovary, fallopian tube and broad ligament, unspecified] Onset: 05-05-2024 05-05-2024 Episodic Unclassified (4 sources) CONTACT W/AND (SUSP) EXPOS COVID-19; Translations: [CONTACT W/AND (SUSP) EXPOS COVID-19] Onset: 01-12-2021 Unclassified (1 source) Annual Exam Onset: 12-31-2023 Past or Other Problems Problem Classification Problem Date Documented Da te Episodic/Chronic Acute bronchitis (1 source) Acute bronchitis; Translations: [Acute bronchitis, unspecified] Onset: 05-14-2017 05-14-2017 Episodic Mood disorders (1 source) Mood disorders Onset: 12-31-2023 12-31-2023 Other upper respiratory infections (1 source) Acute sinusitis; Translations: [Acute sinusitis, unspecified] Onset: 05-14-2017 05-14-2017 Episodic Unclassified (1 source) CONTACT W/AND (SUSP) EXPOS COVID-19; Translations: [CONTACT W/AND (SUSP) EXPOS COVID-19] Onset: 01-09-2021 Results Test Name Value Interpretation Reference Range Facil ity ALL PROGESTERONEon 5 PROGESTERONE 21.1 ng/mL . [facility] are Comment on above: Follicular phase 0.1 - 0.9 Luteal phase 1.8 - 23.9 Ovulation phase 0.1 - 12.0 First trimester 11.0 - 44.3 Second trimester 25.4 - 83.3 Third trimester 58.7 - 214.0 Postmenopausal 0.0 - 0.1 Performed at: [address] [id number] Pharmaceutical Sales Representative: Fan Trotter PhD, Phone: [phone] [facility] [place] [facility] ALL PROGESTERONEon 4 PROGESTERONE 34.0 ng/mL . [facility] are Comment on above: Follicular phase 0.1 - 0.9 Luteal phase 1.8 - 23.9 Ovulation phase 0.1 - 12.0 First trimester 11.0 - 44.3 Second trimester 25.4 - 83.3 Third trimester 58.7 - 214.0 Postmenopausal 0.0 - 0.1 Performed at: [facility] [id number] Pharmaceutical Sales Representative: Fan Trotter PhD, Phone: [phone] [facility] [employer] [facility] GLUCOSEon 01-08-2024 Glucose [Mass/Vol] 94 mg/dL Normal 65-99 [facility] Comment on above: Performed By: #### 2 [id number] #### [facility] ([id number]) [address] [place] [address], [address] [place] [address] ALL PROGESTERONEon PROGESTERONE 28.4 ng/mL . [facility] are Comment on above: Follicular phase 0.1 - 0.9 Luteal phase 1.8 - 23.9 Ovulation phase 0.1 - 12.0 First trimester 11.0 - 44.3 Second trimester 25.4 - 83.3 Third trimester 58.7 - 214.0 Postmenopausal 0.0 - 0.1 Performed at: [facility] [id number] Pharmaceutical Sales Representative: Fan Trotter PhD, Phone: [phone] [employer] [facility] APTTon 07-20-2021 aPTT Coag (Bld) [Time] 27.3 s Normal 25.0-35.0 The [facility] Comment on above: Result Comment: ALL [...] THIS PURPOSE. Performed By: #### 5 [id number], [id number] #### [facility] [address] BASIC METABOLIC PANELon 04-0 1-2022 Calcium [Mass/Vol] 9.1 mg/dL Normal 8.6-10.3 The [facility] Comment on above: Performed By: #### 0 0071, [id number] #### [facility] [address] [place] [address], [place] Chloride [Moles/Vol] 104 mmol/L Normal 98-107 The [facility] Comment on above: Performed By: #### 0 0071, [id number] #### [facility] [address] [place] [address], [place] CO2 [Moles/Vol] 24 mmol/L Normal 21-31 The [facility] Comment on above: Performed By: #### 0 0071, 05582 #### [facility] [address] [place] [address], [place] Creatinine [Mass/Vol] 0.52 mg/dL Low 0.60-1.20 The [facility] Comment on above: Performed By: #### 0 0071, 39605 #### [facility] [address] [place] [address], [place] GFR/1.73 sq M.predicted among blacks MDRD (S/P/Bld) [Vol rate/Area] mL/min/{1.73_m2} Normal >60 The [facility] Comment on above: Performed By: #### 0 0071, 48841 #### [facility] [address] [place] [address], [place] GFR/1.73 sq M.predicted among non-blacks MDRD (S/P/Bld) [Vol rate/Area] mL/min/{1.73_m2} Normal >60 The [facility] Comment on above: Performed By: #### 0 0071, [id number] #### [facility] [address] [place] [address], [place] Glucose [Mass/Vol] 87 mg/dL Normal 70-100 The [facility] Comment on above: Performed By: #### 0 0071, 42627 #### [facility] [address] [place] [address], [facility] Potassium [Moles/Vol] 3.7 mmol/L Normal 3.5-5.1 The [facility] Comment on above: Performed By: #### 0 0071, 85169 #### [facility] [address] [place] [address], [facility] Sodium [Moles/Vol] 137 mmol/L Normal 136-145 The [facility] Comment on above: Performed By: #### 0 0071, 17246 #### [facility] [address] [place] [id number], [facility] Urea nitrogen [Mass/Vol] 13 mg/dL Normal 7-25 [facility] Comment on above: Performed By: #### 0 0071, 34602 #### [facility] [address] [place] [address], [facility] CBC AUTO DIFFon 07-20-2021 BASO # 0.0 103/ul Normal 0.0-0.1 [facility] Comment on above: Performed By: #### C BC #### [facility] [address] [place] [address] Dr. Marilee Diaz Basophils/100 WBC (Bld) 0.2 % Normal 0.2-2.0 [facility] Comment on above: Performed By: #### C BC #### [facility] [address] [place] [address] [address] Marilee Diaz EO # 0.0 103/ul Normal 0.0-0.7 The [facility] Comment on above: Performed By: #### C BC #### [facility] [address] [place] [address] [address] Marilee Diaz Eosinophils/100 WBC (Bld) 0.4 % Critically low 0.9-7.0 [facility] Comment on above: Performed By: #### C BC #### [facility] [address] [place] [address] [address] Marilee Diaz Erythrocyte distribution width (RBC) [Ratio] 11.9 % Normal 11.0-15.0 [facility] Comment on above: Performed By: #### C BC #### [facility] [address] [place] [address] Dr. Marilee Diaz Hematocrit (Bld) [Volume fraction] 38.1 % Normal 36.0-48.0 [facility] Comment on above: Performed By: #### C BC #### [facility] [address] [place] [address] Dr. Marilee Diaz Hemoglobin (Bld) [Mass/Vol] 12.3 g/dL Normal 12.0-16.0 [facility] Comment on above: Performed By: #### C BC #### [facility] [address] [place] [address] Dr. Marilee Diaz IG # 0.02 10e3/ul Normal 0.00-0.03 [facility] Comment on above: Performed By: #### C BC #### [facility] [address] [place] [address] Dr. Marilee Diaz IG % 0.2 % Normal 0.0-0.5 [facility] Comment on above: Performed By: #### C BC #### [facility] [address] [place] [address] Dr. Marilee Diaz LYMPH # 2.7 103/ul Normal 1.2-3.8 [facility] Comment on above: Performed By: #### C BC #### [facility] [address] [place] [address] Dr. Marilee Diaz Lymphocytes/100 WBC (Bld) 31.8 % Normal 20.5-60.0 [facility] Comment on above: Performed By: #### C BC #### [facility] [address] [place] [address] Dr. Marilee Diaz MANUAL DIFF REQ NO Normal [facility] Comment on above: Performed By: #### C BC #### [facility] [address] [place] [address] Dr. Marilee Diaz MCH (RBC) [Entitic mass] 29.4 pg Normal 26.7-34.0 [facility] Comment on above: Performed By: #### C BC #### [facility] [address] [place] [address] Dr. Marilee Diaz MCHC (RBC) [Mass/Vol] 32.3 g/dL Normal 29.9-35.2 The [facility] Comment on above: Performed By: #### C BC #### [facility] [address] [place] [address] Dr. Marilee Diaz MCV (RBC) [Entitic vol] 91.1 fL Normal 81.0-99.0 [facility] Comment on above: Performed By: #### C BC #### [facility] [address] [place] [address] Dr. Marilee Diaz MONO # 0.7 103/ul Normal 0.3-0.8 The [facility] Comment on above: Performed By: #### C BC #### [facility] [address] [place] [address] Dr. Marilee Diaz Monocytes/100 WBC (Bld) 8.3 % Normal 1.7-12.0 [facility] Comment on above: Performed By: #### C BC #### [facility] [address] [place] [address] Dr. Marilee Diaz NEUT # 5.0 103/ul Normal 1.4-6.5 The [facility] Comment on above: Performed By: #### C BC #### [facility] [address] [place] [address] Dr. Marilee Diaz Neutrophils/100 WBC (Bld) 59.1 % Normal 43.0-75.0 The [facility] Comment on above: Performed By: #### C BC #### [facility] [address] [place] [address] Dr. Marilee Diaz Platelet mean volume (Bld) [Entitic vol] 9.7 fL Normal 9.5-13.5 The [facility] Comment on above: Performed By: #### C BC #### [facility] [address] [place] [address] Dr. Marilee Diaz PLT 290 103/ul Normal 150-450 The [facility] Comment on above: Performed By: #### C BC #### [facility] [address] [place], [place] [address] Dr. Marilee Diaz RBC 4.18 106/ul Critically low 4.20-5.40 The [facility] Comment on above: Performed By: #### C BC #### [facility] [address] [place], [place] [address] Dr. Marilee Diaz WBC 8.4 103/ul Normal 4.0-11.0 The [facility] Comment on above: Performed By: #### C BC #### [facility] [address] [place], [place] [address] Dr. Marilee Diaz CBC COMPLETE BLOOD COUNTon 0 07-20-2021 Erythrocyte distribution width (RBC) [Ratio] 11.9 % Normal 11.5-15.0 The [facility] Comment on above: Performed By: #### 5 0608 ####[facility] Hematocrit (Bld) [Volume fraction] 36.0 % Normal 36.0-45.0 [facility] Comment on above: Performed By: #### 5 0608 ####[facility] Hemoglobin (Bld) [Mass/Vol] 11.9 g/dL Low 12.0-15.0 The [facility] Comment on above: Performed By: #### 5 0608 ####[facility] MCH (RBC) [Entitic mass] 29.7 pg Normal 27.0-33.0 [facility] Comment on above: Performed By: #### 5 0608 ####[facility] MCHC (RBC) [Mass/Vol] 33.1 g/dL Normal 32.0-35.0 The [facility] Comment on above: Performed By: #### 5 0608 ####[facility] [facility].[address] MCV (RBC) [Entitic vol] 89.8 fL Normal 82.0-98.0 [facility] Comment on above: Performed By: #### 5 0608 ####[facility] [facility].[address] Nucleated RBC/100 WBC (Bld) [Ratio] 0 % Normal 0-0 The [facility] Comment on above: Performed By: #### 5 0608 ####[facility] [facility].[address] PLAT CNT 281 10*3/uL Normal 150-400 The [facility] Comment on above: Performed By: #### 5 0608 ####[place] [address] [facility].[address] RBC (Bld) [#/Vol] 4.01 10*6/uL Normal 3.80-5.00 The [facility] Comment on above: Performed By: #### 5 0608 ####[place] [address] [facility].[address] WBC (Bld) [#/Vol] 6.83 10*3/uL Normal 4.00-10.60 The [facility] Comment on above: Performed By: #### 5 0608 ####[address] HEAD WO CONon 07-20-2021 CT [...] by: FERCHO ARIAS Date: 2021-07-20 02:[address] [facility] CTA HEAD WO W CONon 07-21-19 [...] There is patent origin of the right WORKERS' COMPENSATION CLAIMS EXAMINER. 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 DEVELOPMENTAL ANOMALIES: takeoff of the left WORKERS' COMPENSATION CLAIMS EXAMINER. OTHER: No intracranial hemorrhage, enhancing intracranial mass [...] FERCHO ARIAS Date: 2021-07-20 04:07 Normal The [facility]on SARS-CoV-2 (COVID-19) RNA FRANK+probe Ql (Unsp spec) Not detected Normal NOT DETECTED The [facility] Comment on above: Result Comment: This test is not yet approved or cleared by the [place] FDA. When there are no FDA-approved or cleared tests available, and other criteria are met, FDA can make tests available under an emergency access mechanism called an Emergency Use Authorization (EUA). The EUA for this test is supported by the Flat Folding Machine Operator of Health and Human Service's (HHS's) declaration [...] SARS-CoV-2. Performed By: #### C VDTB #### [facility] [address] [place] [address] Dr. Marilee Diaz LIVER BATTERYon 07-20-2021 Albumin [Mass/Vol] 4.3 g/dL Normal 3.5-5.7 The [facility] Comment on above: Performed By: #### 0 0071, 89660 #### [facility] [address] [place] [address], [facility] ALKALINE PHOSPH 57 IU/L Normal 34-104 The [facility] Comment on above: Performed By: #### 0 0071, 09414 #### [facility] [address] [place] [address], [facility] ALT [Catalytic activity/Vol] 12 U/L Normal 7-52 The [facility] Comment on above: Performed By: #### 0 0071, 08130 #### [facility] [address] AST [Catalytic activity/Vol] 13 U/L Normal 13-39 [facility] Comment on above: Performed By: #### 0 0071, 31310 #### [facility] [address] [place] [address], [facility] Bilirubin [Mass/Vol] 0.3 mg/dL Normal 0.3-1.0 The [facility] Comment on above: Performed By: #### 0 0071, 90292 #### [facility] [address] Bilirubin.direct [Mass/Vol] 0.1 mg/dL Normal 0.0-0.2 The [facility] Comment on above: Performed By: #### 0 0071, 67375 #### [facility] [address] [place] [address], [facility] Protein [Mass/Vol] 6.5 g/dL Normal 6.0-8.[address] [facility] Comment on above: Performed By: #### 0 0071, [address]474 #### [address] MRI STROKE ALERT BRAIN WO CO NTRASTon 07-20-2021 MRI STROKE ALERT BRAIN WO CONTRAST [facility] Department of Radiology [address] [place] [id number] Patient Name: MAX BRAMBILA : 1995 Sex: F Age: Race: White Pt. Location: [facility] Patient Status: E Ordered Date: [...] brain. Electronically signed: Vance Jackson. Transcribed by: [email or web address], User Resident: Electronically Signed by: VANCE JACKSON @ 07/20/2021 08:18 AM Normal The [facility] Comment on above: Order Comment: CVA POC GLUCOSE EDon 07-20-2021 Glucose [Mass/Vol] 90 mg/dL Normal 70-[address] [facility] Comment on above: Performed By: #### 9 1690 #### [place] [address] [place] [address], [facility] POC SARS COV2 ANTIGEN NEGATI VEon 07-20-2021 POC SARS COV2 ANTIGEN NEG Negative Normal NEGATIVE The [facility] Comment on above: Result Comment: Nega [...] antigen from SARS-CoV-2 in direct nasopharyngeal swab (PLATE STRAIGHTENER) specimens from individuals who are suspected of [...] Accreditation. Performed By: #### 3 2043 #### [facility] [address] POC SARS COV2 ANTIGEN NEG CANCELED Normal NEGATIVE The [facility] Comment on above: Result Comment: The released value NEGATIVE was canceled by JOSE on 07/22/2021 12:28 Performed By: #### 3 2043 #### [facility] [address] POC URINE PREGNANCYon 2021 Beta HCG ( test) Ql (U) Negative Normal NEGATIVE The [facility] Comment on above: Result Comment: Perf ormed in Emergency Department. Performed By: #### 8 4140 ####[facility] PORTABLE CHEST 1 VIEWon PORTABLE CHEST 1 VIEW [facility] Department of Radiology [address] [place] [address] Patient Name: MAX BRAMBILA : 1995 Sex: F Age: Race: White Pt. Location: [facility] Patient Status: E Ordered Date: [...] report. Electronically signed: Parul Reilly. Transcribed by: [email or web address], User Resident: SWAPNA QUIROGA Electronically Signed by: PARUL REILLY @ 07/20/2021 06:51 AM I personally read this/these film(s) with this resident Normal The [facility] Comment on above: Order Comment: evalu ate for Infiltrates PROF 14(COMP METB)on 022 Albumin [Mass/Vol] 4.0 g/dL Normal 3.4-5.0 The [facility] Comment on above: Performed By: #### C MP #### [facility] [address] [place] [address] [address] Marilee Diaz Albumin/Globulin [Mass ratio] 1.1 {ratio} Normal [facility] Comment on above: Performed By: #### C MP #### [facility] [address] [place] [address] [address] Marilee Diaz ALP [Catalytic activity/Vol] 83 U/L Normal 46-116 [facility] Comment on above: Performed By: #### C MP #### [facility] [address] [place] [address] [address] Marilee Diaz ALT [Catalytic activity/Vol] 20 U/L Normal 14-59 [facility] Comment on above: Performed By: #### C MP #### [facility] [address] [place] [address] Dr. Marilee Diaz Anion gap [Moles/Vol] 12.5 mmol/L Normal [facility] Comment on above: Performed By: #### C MP #### [facility] [address] [place] [address] Dr. Marilee Diaz AST [Catalytic activity/Vol] 12 U/L Critically low 15-37 [facility] Comment on above: Performed By: #### C MP #### [facility] [address] [place] [address] Dr. Marilee Diaz Bilirubin [Mass/Vol] 0.3 mg/dL Normal 0.2-1.3 [facility] Comment on above: Performed By: #### C MP #### [facility] [address] [place] [address] Dr. Marilee Diaz Calcium [Mass/Vol] 9.1 mg/dL Normal 8.5-10.1 [facility] Comment on above: Performed By: #### C MP #### [facility] [address] [place] [address] Dr. Marilee Diaz Chloride [Moles/Vol] 103 mmol/L Normal 98-107 The [facility] Comment on above: Performed By: #### C MP #### [facility] [address] [place] [address] [address] Marilee Diaz CO2 [Moles/Vol] 26.2 mmol/L Normal 22.0-30.0 The [facility] Comment on above: Performed By: #### C MP #### [facility] [address] [place] [address] [address] Marilee Diaz Creatinine [Mass/Vol] 0.63 mg/dL Normal 0.52-1.04 [facility] Comment on above: Performed By: #### C MP #### [facility] [address] [address] [address] Marilee Diaz EGFR-AF MOZAMBICAN >60 Normal >=60 [facility] Comment on above: Performed By: #### C MP #### [facility] [address] [place] [address] Dr. Marilee Diaz EGFR-NON AF MOZAMBICAN >60 Normal >=60 [facility] Comment on above: Performed By: #### C MP #### [facility] [address] [address] [address] Marilee Diaz Globulin (S) [Mass/Vol] 3.5 g/dL Normal [facility] Comment on above: Performed By: #### C MP #### [facility] [address] [address] [address] Marilee Diaz Glucose [Mass/Vol] 104 mg/dL Normal 74-106 [facility] Comment on above: Performed By: #### C MP #### [facility] [address] [address] [address] Marilee Diaz Potassium [Moles/Vol] 3.7 mmol/L Normal 3.4-5.0 [facility] Comment on above: Performed By: #### C MP #### [facility] [address] [place] [address] Dr. Marilee Diaz Protein [Mass/Vol] 7.5 g/dL Normal 6.1-8.2 [facility] Comment on above: Performed By: #### C MP #### [facility] [address] [place] [address] Dr. Marilee Diaz Sodium [Moles/Vol] 138 mmol/L Normal 137-145 [facility] Comment on above: Performed By: #### C MP #### [facility] [address] [address] [address] Marilee Diaz Urea nitrogen [Mass/Vol] 15.0 mg/dL Normal 7.0-18.0 [facility] Comment on above: Performed By: #### C MP #### [facility] [address] [address] [address] Marilee Diaz Urea nitrogen/Creatinine [Mass ratio] 23.8 mg/mg Normal [facility] Comment on above: Performed By: #### C MP #### [facility] [address] [address] [address] aMrilee Diaz PROTHROMBIN TIMEon 2 INR Coag (PPP) [Relative time] 0.95 {INR} Normal 0.91-1.16 [facility] Comment on above: Result Comment: ACCC [...] CHEST 1995;[id number]. Performed By: #### 5 6101, 70813 #### [facility] [address] PT Coag (PPP) [Time] 12.7 s Normal 12.3-14.8 [facility] Comment on above: Result Comment: ALL RESULTS MUST BE INTERPRETED WITH RESPECT TO BLOOD DRAWING ARTIFACT OR DILUTION ERROR OF ANTICOAGULANT AT THE TIME OF SAMPLING. Performed By: #### 5 6101, 07803 #### [facility] [address] [place] [address], [facility] PROTIMEon 07-20-2021 INR Coag (PPP) [Relative time] 0.94 {INR} Normal [facility] Comment on above: Performed By: #### P T, PTT #### [facility] [address] [place] [address] Dr. Marilee Diaz INR GUIDELINES SEE BELOW Normal The [facility] Comment on above: Result Comment: POLA RED INR: 2.0 - 3.0 CONDITIONS NOT LISTED BELOW 2.5 - 3.5 FOR PROSTHETIC HEART VALVE REPLACEMENT 2.5 - 3.5 RECURRENT THROMBOSIS Performed By: #### P T, PTT #### [facility] [address] [address] [address] Marilee Diaz PT Coag (PPP) [Time] 10.2 s Normal 9.0-11.6 [facility] Comment on above: Performed By: #### P T, PTT #### [facility] [address] [place] [address] Dr. Marilee Diaz PTTon 07-20-2021 aPTT Coag (Bld) [Time] 26.3 s Normal 22.3-36.2 [facility] Comment on above: Performed By: #### P T, PTT #### [facility] [address] [place] [address] Dr. Marilee Diaz Covid-19 PCR (CVDTB)on 12-21 SARS-CoV-2 (COVID-19) RNA FRANK+probe Ql (Unsp spec) Not detected Normal NOT DETECTED [facility] Comment on above: Result Comment: This test is not yet approved or cleared by the [place] FDA. When there are no FDA-approved or cleared tests available, and other criteria are met, FDA can make tests available under an emergency access mechanism called an Emergency Use Authorization (EUA). The EUA for this test is supported by the Flat Folding Machine Operator of Health and Human Service's (HHS's) declaration [...] consistent with SARS-CoV-2. Performed By: #### C [facility] #### [facility] [address] [place] [address] Dr. Marilee Diaz Vital Signs Date Time Vital Sign Value Performing Clinician Facility 05-20-2024 16:48-0500 Body height 149.86 cm [facility] 05-20-2024 16:48-0500 Body mass index (BMI) [Ratio] 27 kg/m2 [facility] 05-20-2024 16:48-0500 Body temperature 98.4 [degF] [facility] 05-20-2024 16:48-0500 Body weight 60.78 kg [facility] 05-20-2024 16:48-0500 Diastolic blood pressure 76 mm[Hg] [facility] 05-20-2024 16:48-0500 Heart rate 86 /min [facility] 05-20-2024 16:48-0500 Respiratory rate 14 /min [facility] 05-20-2024 16:48-0500 SaO2% (BldA) [Mass fraction] 99 % [facility] 05-20-2024 16:48-0500 Systolic blood pressure 114 mm[Hg] [facility] 05-03-2024 09:35-0500 Body mass index (BMI) [Ratio] 28.03 kg/m2 [facility] [facility] Work Phone: [facility] 05-03-2024 09:35-0500 Body weight 62.96 kg Brittany Michele DO Work Phone: [facility] 05-03-2024 09:35-0500 Diastolic blood pressure 60 mm[Hg] Brittany Michele DO Work Phone: [facility] 05-03-2024 09:35-0500 Systolic blood pressure 110 mm[Hg] Brittany Michele DO Work Phone: [facility] 12-31-2023 15:10-0400 Body height 152.4 cm Vance Miller MD Work Phone: [facility] 12-31-2023 15:10-0400 Body mass index (BMI) [Ratio] 26.95 kg/m2 Vance Miller MD Work Phone: [facility] 12-31-2023 15:10-0400 Body temperature 98.2 [degF] Vance Miller MD Work Phone: [facility] 12-31-2023 15:10-0400 Body weight 62.6 kg Vance Miller MD Work Phone: [facility] 12-31-2023 15:10-0400 Diastolic blood pressure 70 mm[Hg] Vance Miller MD Work Phone: [facility] 12-31-2023 15:10-0400 Heart rate 72 /min Vance Miller MD Work Phone: [facility] 12-31-2023 15:10-0400 Respiratory rate 16 /min Vance Miller MD Work Phone: [facility] 12-31-2023 15:10-0400 Systolic blood pressure 110 mm[Hg] Vance Miller MD Work Phone: [facility] Encounters Encounter Date Encounter Type Care Provider Facility Start: 05-25-2024 End: 05-26-2024 Clinisync Result Encounter Brittany Michele DO Work Phone: [facility] External Department Unsolicited Start: 05-25-2024 End: 05-26-2024 Clinisync Result Encounter Brittany Michele DO Work Phone: [facility] External Department Unsolicited Start: 05-20-2024 End: 05-20-2024 ambulatory [facility] Work Phone: Start: 05-20-2024 End: 05-20-2024 Patient encounter procedure [facility] Work Phone: Start: 05-03-2024 [...] Department Unsolicited Start: 01-08-2024 End: 01-08-2024 ambulatory VACNE MILLER [facility] Start: 01-08-2024 Encounter for genera l adult medical examination without abnormal findings VANCE MILLER [facility] Start: 12-31-2023 End: 12-31-2023 Patient encounter status Vance Miller MD Work Phone: [facility] [employer] Work Phone: Start: 12-31-2023 End: 12-31-2023 Periodic preventive med est patient 18-39 yrs Vance Miller MD Work Phone: [facility] Comment on above: Routine general medi charisse examination at a [facility] facility (Primary Dx) Start: 12-31-2023 End: 12-31-2023 [facility]ulatory [facility] Start: 12-31-2023 Encounter for genera l adult medical examination without abnormal findings [facility] Start: 12-11-2023 End: 12-12-2023 Clinisync Result Encounter Brittany Michele DO Work Phone: [facility] External Department Unsolicited Start: 12-11-2023 End: 12-12-2023 Clinisync Result Encounter Brittany Michele DO Work Phone: [facility] External Department Unsolicited Start: 11-03-2023 End: 11-03-2023 ambulatory BRITTANY MICHELE Not Available Start: 07-01-2023 End: 07-01-2023 ambulatory BRITTANY MICHELE Not Available Start: 07-20-2021 End: 07-20-2021 Emergency department patient visit RAMESH PHAM Facility:[facility] Start: 07-20-2021 End: 07-20-[address] CHUY KC Facility: Start: 01-09-2021 End: 01-09-[address] VANCE MILLER Facility:[facility]1 Procedures Date Procedure Procedure Detail Performing Clinician Start: 05-25-2024 ALL PROGESTERONE Brittany Michele DO Work Phone: Start: 03-08-2024 ALL PROGESTERONE Brittany Michele DO Work Phone: Start: 12-31-2023 Adult depression scr eening assessment Vance Miller MD Work Phone: Start: 12-11-2023 ALL PROGESTERONE Brittany Michele DO Work Phone: Start: 12-31-2021 Microscopic observat ion [Identifier] in Cervix by Cyto stain Vance Miller MD Work Phone: Plan of Treatment Date Care Activity Detail Author Start: 09-22-2031 DTaP,Tdap and Td Vaccines (8 - Td or Tdap) DTaP,Tdap and Td Vaccines (8 - Td or Tdap) [facility] [employer] Start: 12-31-2024 Screening for malign ant neoplasm of cervix Pap Smear [facility] Start: 09-15-2024 End: 09-15-2024 Patient encounter procedure 09/15/2024 2:20 PM EDT Office Visit [facility] [address] [facility] [place] [id number] Brittany Bautista, DO [address] [place] [address] [facility] Start: 09-02-2024 End: 09-02-2024 Patient encounter procedure 09/02/2024 9:40 AM EDT Office Visit [facility] [address] [facility] [id number] Brittany Bautista, DO [address] [place], [place] [id number] [facility] Start: 05-03-2024 End: 05-03-2024 Patient encounter procedure 05/03/2024 9:40 AM EST Office Visit [facility] [address] [facility] [id number] Brittany Bautista, DO [address] [place], [place] [id number] Arrived [facility] Comment on above: Arrived Start: 12-31-2023 End: 12-30-2024 Glucose random or fasting Glucose random or fasting Lab Routine Routine general medical examination at a health care facility Expected: 12/31/2023, Expires: 12/30/2024 [facility] Work Phone: Comment on above: Expected: 12/31/2023 , Expires: 12/30/2024 Start: 12-27-2023 Adult BMI Screening Adult BMI Screen ing [facility] Start: 12-27-2023 Depression Screening Depression Scre ening [facility] Start: 12-27-2023 Tobacco Screening Tobacco Screening [facility] Start: 12-21-2023 COVID-19 Vaccine ( season) COVID-19 Vaccine (2022-24 season) [facility] Start: 12-21-2023 Influenza vaccination N [facility] Immunizations Immunization Date Immunization Notes Care Provider Tani mart 02-10-2023 Seasonal, quadrivale nt, recombinant, injectable influenza vaccine, preservative free Vance Miller MD Work Phone: [facility] 02-10-2023 influenza virus vaccine, unspecified formulation Brittany Bautista DO Work Phone: [facility] 02-04-2023 influenza virus vaccine, unspecified formulation Vance Miller MD Work Phone: [facility] 09-21-2021 tetanus toxoid, redu dov diphtheria toxoid, and acellular pertussis vaccine, adsorbed Vance Miller MD Work Phone: [facility] 02-09-2021 Seasonal, quadrivale nt, recombinant, injectable influenza vaccine, preservative free Vance Miller MD Work Phone: [facility] 02-10-2020 Seasonal, quadrivale nt, recombinant, injectable influenza vaccine, preservative free Vance Miller MD Work Phone: [facility] 04-08-2011 tetanus toxoid, redu dov diphtheria toxoid, and acellular pertussis vaccine, adsorbed Vance Miller MD Work Phone: [facility] 07-03-2000 diphtheria, tetanus toxoids and acellular pertussis vaccine, unspecified formulation Vance Miller MD Work Phone: [facility] 07-03-2000 measles, mumps and rubella virus vaccine Vance Miller MD Work Phone: [facility] 07-03-2000 poliovirus vaccine, inactivated Vance Miller MD Work Phone: [facility] 07-03-2000 varicella virus vaccine John Miller MD Work Phone: [facility] 09-06-1996 diphtheria, tetanus toxoids and acellular pertussis vaccine, unspecified formulation Vance Miller MD Work Phone: [facility] 09-06-1996 haemophilus influenz ae type b vaccine, conjugate unspecified formulation Vance Miller MD Work Phone: [facility] 09-06-1996 measles, mumps and rubella virus vaccine Vance Miller MD Work Phone: [facility] 02-09-1996 DTP-Haemophilus influenzae type b conjugate vaccine Vance Miller MD Work Phone: [facility] 02-09-1996 hepatitis B vaccine, pediatric or pediatric/adolescent dosage Vance Miller MD Work Phone: [facility] 02-09-1996 trivalent poliovirus vaccine, live, oral Vance Miller MD Work Phone: [facility] 1995 DTP-Haemophilus influenzae type b conjugate vaccine Vance Miller MD Work Phone: [facility] 1995 trivalent poliovirus vaccine, live, oral Vance Miller MD Work Phone: [facility] 1995 DTP-Haemophilus influenzae type b conjugate vaccine Vance Miller MD Work Phone: [facility] 1995 hepatitis B vaccine, pediatric or pediatric/adolescent dosage Vance Miller MD Work Phone: [facility] 1995 trivalent poliovirus vaccine, live, oral Vance Miller MD Work Phone: [facility] 1995 hepatitis B vaccine, pediatric or pediatric/adolescent dosage Vance Miller MD Work Phone: [facility] Payers Date Payer Category Payer Private Health Insurance [id number] 2022 Private Health Insurance [id number] 1995 Unknown [id number] 1995 Unknown [id number] 1995 Unknown [id number] [id number] 1995 Unknown [id number] [id number] 1995 Unknown [id number] 2.16.8 [id number] 1995 Unknown [id number] 2.16.84 [id number] 1995 Unknown [id number] 2.16.84 [id number] 1995 Unknown [id number] 1959 Unknown [id number] Social History Date Type Detail Facility Start: 12-26-2022 End: 06-10-2023 Tobacco smoking status MOIS Never smoked tobacco [facility] Start: 11-03-2023 End: 05-03-2024 Alcoholic beverage intake Lifetime non-drinker (finding) [facility] Start: 05-09-2020 End: 06-10-2023 History of Social function [facility] Start: 05-09-2020 End: 06-10-2023 Tobacco use panel [facility] Start: 06-10-2023 Alcohol Comment caffeine:2-3 c ups per day [facility] Start: 1995 Sex assigned at Female [facility] Start: 2023 Gender identity Identifies as female gender (finding) [facility] Start: 05-20-2024 Sex Female (finding) [facility] Start: 12-26-2022 Tobacco use and exposure Smokeless tobacco non-user [facility] Start: 12-31-2023 Alcoholic beverage intake Current non-drinker of alcohol (finding) [facility] How hard is it for y ou to pay for the very basics like food, housing, medical care, and heating Not very hard [facility] Adolescent depressio n screening assessment 0 [facility] Start: 1995 Sex assigned at Not on file P [facility] History of Present illness Narrative 05-03-2024 Luisa Munoz, INTERIOR WIRER - 05/03/2024 9:40 AM EST Note Date [...] nursing note reviewed. Exam conducted with a casino duty manager present. Vitals: Estimated body mass index is [...] Brittany Bautista DO documented in this encounter [facility] History of Present illness Narrative 12-31-2023 Vance Miller MD - 12/31/2023 3:15 PM EDT Note Date & Type Note Facility 12-31-2023 History of Presen t illness Narrative Images from the original note were not included. [address] [facility] [id number] SUBJECTIVE: Patient ID: Max Brambila is a 28 y.o. female. 28 yo WF with woo f/u obgyn for fertility issues, nonsmoker, ethanol none, , job is [place] The following portions of the patient's history were reviewed and updated as appropriate: allergies, current medications, past family history, past medical history, past social history, past surgical history and problem list. REVIEW OF SYSTEMS: Review of Systems Constitutional: Negative. Respiratory: Negative. Cardiovascular: Negative. Gastrointestinal: Negative. Genitourinary: Negative. Musculoskeletal: Negative. Neurological: Negative. Psychiatric/Behavioral: Negative. PHYSICAL EXAMINATION: Vitals: 12/31/23 1510 BP: 110/70 BP Site: Left Arm BP Postition: Sitting BP CUFF SIZE: M (9-13 inches) Pulse: 72 Resp: 16 Temp: 36.8 C (98.2 F) TempSrc: Tympanic Weight: 62.6 kg (138 lb) Height: 152.4 cm (5') Physical Exam Vitals and nursing note reviewed. Constitutional: Appearance: Normal appearance. HENT: Head: Normocephalic and atraumatic. Eyes: Extraocular Movements: Extraocular movements intact. Pupils: Pupils are equal, round, and reactive to light. Cardiovascular: Rate and Rhythm: Normal rate and regular rhythm. Pulses: Normal pulses. Heart sounds: Normal heart sounds. Pulmonary: Effort: Pulmonary effort is normal. Breath sounds: Normal breath sounds. Skin: General: Skin is warm and dry. Neurological: General: No focal deficit present. Mental Status: She is alert and oriented to person, place, and time. Psychiatric: Mood and Affect: Mood normal. Behavior: Behavior normal. ASSESSMENT/PLAN: Max was seen today for annual exam. Diagnoses and all orders for this visit: Routine general medical examination at a health care facility - Glucose random or fasting; Future Follow-up: Pt states chol is not covered glucose fasting Obgyn f/u documented in this encounter [facility] Discharge summary note 07-31-2021 Note Date & Type Note Facility 07-31-2021 Note MR#: [id number] E [facility] Pt. 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 CONSULTATIONS: Neurology/Stroke Service. HOSPITAL COURSE: A 26-year-old female presented to [facility] Emergency Department as a hospital transfer from [facility] after being accepted by Dr. [...] GCS of 15 with NIH 4 in [facility] Emergency Department. Labs unremarkable. Patient received [...] follow up with Cardiology, Dr. Reynolds at [facility]. The patient to set up a followup [...] Lambert CNP Date Trans: 07/31/2021 08:55 P/tuan [id number] cc: Vance Miller M.D. [address] [facility] [id number] Chuy Kc M.D. [facility]do Not Send [address] [facility] [address] [facility] Evaluation note Note Date & Type Note Facility Evaluation note Diagnosis Encounter for fertility planning documented in this encounter [facility] Evaluation note Note Date & Type Note Facility Evaluation note Diagnosis Onset Date Resolution Allergic reaction noneactive May 20, 2024 4:45pm [facility] Work Phone: Evaluation note Note Date & Type Note Facility Evaluation note Diagnosis Routine general medical examination at a health care facility- Primary documented in this encounter [employer] Instructions Attachments Note Date & Type Note Facility Instructions The following attachments cannot be sent through Care Everywhere.Yearly Physical for Adults (Khmer)documented in this encounter [employer] [facility] Summary Purpose Family History No Family History [...] and content) DATE CREATED AUTHOR 08/02/2021 [facility] DATE CREATED AUTHOR AUTHOR'S ORGANIZ ATION 08/02/2021 [facility] DATE CREATED AUTHOR AUTHOR'S ORGANIZ ATION 01/02/2024 [facility] DATE CREATED AUTHOR AUTHOR'S ORGANIZ ATION 01/10/2024 [facility] DATE CREATED AUTHOR AUTHOR'S ORGANIZ ATION 05/06/2024 [facility] [employer] Care Teams (unrecognized sec tion and content) Electronic Technologist Relationship Specialty Start Date End Date Vance Miller MD [address] [place] [address] PCP - General Family Medicine 07/01/23 Electronic Technologist Relationship Specialty Start Date End Date Vance Miller MD [address] [place] [address] PCP - General Family Medicine 07/01/23 Electronic Technologist Relationship Specialty Start Date End Date Vance Miller MD [address] [place] [address] PCP - General Family Medicine 07/01/23 Team Status: Active Member Role Status Dates Vance Miller MD Primary Care Provider Active Team Status: Inactive Member Role Status Dates Vance Miller MD Primary Care Provider Active Start: May 20, 2024 End: May 20, 2024 Yue Waller APRN Attending Provider Active Start: May 20, 2024 End: May 20, 2024 Electronic Technologist Relationship Specialty Start Date End Date Vance Miller MD [address] [address] PCP - General Family Medicine 07/01/23 Electronic Technologist Relationship Specialty Start Date End Date Vance Miller MD [address] [address] PCP - General Family Medicine 05/13/17 Reason for Visit (unrecogniz ed section and content) Reason Comments Infertility Reason Comments Annual Exam Goals (unrecognized section and content) Goals may be documented in a n alternate sectionNot on filedocumented as of this encounter FOR RECORDS PERTAINING TO PATIENTS WHO ARE [...] BE BASED ON THE PRIMARY CLINICAL RECORDS. [facility] [employer] [facility] provides no warranty or guarantee of the accuracy or completeness of information in this document.
[2024-06-22 04:07] LABS: Progesterone 0.9 ng/mL (.)
== END 2024-06-21 07:50 | disposition home or self-care (01) ==
LOC: LAB 07:49
PROVIDERS: PCP Family Medicine; Visit Provider Obstetrics & Gynecology
DX: N97.0 Female infertility associated with anovulation (principal); N83.9 Noninflammatory disorder of ovary, fallopian tube and broad ligament, unspecified
CPT/HCPCS: 36415; 84144

== ENCOUNTER 2024-07-16 07:43 | Outpatient (OUT) | payer OTHER, SELFPAY ==
--- OUTSIDE RECORDS SUMMARY | 2024-07-16 07:45 | XMS_ITS | CCD ---
Author Organization [facility] Care Team Providers Care Merchandise Carrier Name Role Phone DR CHUY KC Attending [...] Unavailable Vance Miller MD Primary Care Provider [phone] BRITTANY BAUTISTA Attending Unavailable BRITTANY BAUTISTA Attending Unavailable BRITTANY BAUTISTA Attending Unavailable Vance Miller MD Primary Care Provider Allergies Allergy Classification Reported Allergen(s) Allergy Type Date of Onset Reaction(s) Facility (10 sources) Sulfamethoxazole / Trimethoprim; Translations: [SULFAMETHOXAZOLE-TR IMETHOPRIM] [...] hydrochloride 500 mg extended release oral tablet (8 sources) Biguanide Start: 12-08-2023 End: 01-04-2025 take [...] Vit-Fe Fumarate-FA ( Plus) 27-1 MG tablet (7 sources) Start: 12-31-2021 Vit-Fe Fumarate-FA ( Plus) 27-1 MG tablet 1 (one) time each day at the same time 12/31/2021 Active sertraline 50 mg oral tablet (5 sources) Serotonin Reuptake Inhibitor Start: 03-29-2024 take 1 tablet by mouth in the morning sertraline (Zoloft) 50 MG tablet Take 50 mg by mouth in the morning. 03/29/2024 Active Completed/Discontinued Medications Medication Drug Class(es) Dates Sig [...] other procreative management] 05-03-2024 Episodic Female infertility (2 sources) Anovulation; Translations: [Female infertility associated with anovulation] Onset: 05-05-2024 05-05-2024 Chronic Malaise and fatigue (4 sources) Weakness; Translations: [WEAKNESS] Onset: 07-20-2021 Episodic Other endocrine disorders (2 sources) Polycystic ovary syndrome; Translations: [Polycystic ovarian syndrome] Onset: 05-05-2024 05-05-2024 Chronic Other female genital disorders (2 sources) Fallopian tube disorder; Translations: [Noninflammatory disorder of [...] Range Facil ity ALL PROGESTERONEon 5 PROGESTERONE 0.9 ng/mL . [facility] are Comment on above: Follicular phase 0.1 - 0.9 Luteal phase 1.8 - 23.9 Ovulation phase 0.1 - 12.0 First trimester 11.0 - 44.3 Second trimester 25.4 - 83.3 Third trimester 58.7 - 214.0 Postmenopausal 0.0 - 0.1 Performed at: [facility] Lab[address] [id number] Necktie Maker: Fan Trotter PhD, Phone: [phone] [facility] ALL PROGESTERONEon 5 PROGESTERONE 21.1 ng/mL . [facility] are Comment on above: Follicular phase 0. 1 - 0.9 Luteal phase 1.8 - 23.9 Ovulation phase 0.1 - 12.0 First trimester 11.0 - 44.3 Second trimester 25.4 - 83.3 Third trimester 58.7 - 214.0 Postmenopausal 0.0 - 0.1 Performed at: [facility] [address] [id number] Necktie Maker: Fan Trotter PhD, Phone: [phone] e ALL PROGESTERONEon 4 PROGESTERONE 34.0 ng/mL . [facility] are Comment on above: Follicular phase 0.1 - 0.9 Luteal phase 1.8 - 23.9 Ovulation phase 0.1 - 12.0 First trimester 11.0 - 44.3 Second trimester 25.4 - 83.3 Third trimester 58.7 - 214.0 Postmenopausal 0.0 - 0.1 Performed at: [address] [id number] Necktie Maker: Fan Trotter PhD, Phone: [phone] e GLUCOSEon 01-08-2024 Glucose [Mass/Vol] 94 mg/dL Normal 65-99 [facility] Comment on above: Performed By: #### 2 345-7 #### [facility] ([id number]) [address] [facility], [address] [place] [address] ALL PROGESTERONEon 4 PROGESTERONE 28.4 ng/mL . [facility] are Comment on above: Follicular phase 0.1 - 0.9 Luteal phase 1.8 - 23.9 Ovulation phase 0.1 - 12.0 First trimester 11.0 - 44.3 Second trimester 25.4 - 83.3 Third trimester 58.7 - 214.0 Postmenopausal 0.0 - 0.1 Performed at: [facility] [address] [id number] Necktie Maker: Fan Trotter PhD, Phone: [phone] e APTTon 07-20-2021 aPTT Coag (Bld) [Time] 27.3 s Normal 25.0-35.[address] [facility] Comment on above: Result Comment: [...] THIS PURPOSE. Performed By: #### 5 6101, 19874 #### [facility] [address] [place] [address], [facility] BASIC METABOLIC PANELon 04-0 Calcium [Mass/Vol] 9.1 mg/dL Normal 8.6-10.3 [facility] Comment on above: Performed By: #### 0 0071, 05990 #### [facility] [address] [place] [address], [facility] Chloride [Moles/Vol] 104 mmol/L Normal 98-107 [facility] Comment on above: Performed By: #### 0 0071, [id number] #### [facility] [address] [place] [address], [facility] CO2 [Moles/Vol] 24 mmol/L Normal 21-31 [facility] Comment on above: Performed By: #### 0 0071, 91728 #### [facility] [address] [place] [address], [facility] Creatinine [Mass/Vol] 0.52 mg/dL Low 0.60-1.20 [facility] Comment on above: Performed By: #### 0 0071, 89443 #### [facility] [address] [place] [address], [facility] GFR/1.73 sq M.predicted among blacks MDRD (S/P/Bld) [Vol rate/Area] mL/min/{1.73_m2} Normal >60 [facility] Comment on above: Performed By: #### 0 0071, 80650 #### [facility] [address] [place] [address], [facility] GFR/1.73 sq M.predicted among non-blacks MDRD (S/P/Bld) [Vol rate/Area] mL/min/{1.73_m2} Normal >60 [facility] Comment on above: Performed By: #### 0 0071, 40693 #### [facility] [address] [place] [address], [facility] Glucose [Mass/Vol] 87 mg/dL Normal 70-100 [facility] Comment on above: Performed By: #### 0 0071, 28990 #### [facility] [address] [facility] [place] [address], [facility] Potassium [Moles/Vol] 3.7 mmol/L Normal 3.5-5.1 [facility] Comment on above: Performed By: #### 0 0071, 61727 #### [facility] [address] [facility] [place] [address], [facility] Sodium [Moles/Vol] 137 mmol/L Normal 136-145 [facility] Comment on above: Performed By: #### 0 0071, 32560 #### [facility] [address] [facility] [place] [address], [facility] Urea nitrogen [Mass/Vol] 13 mg/dL Normal 7-25 [facility] Comment on above: Performed By: #### 0 0071, 88233 #### [facility] [address] [place] [address], [place] CBC AUTO DIFFon 07-20-2021 BASO # 0.0 103/ul Normal 0.0-0.1 [facility] Comment on above: Performed By: #### C BC #### [facility] [address] [address] [address] Marilee Diaz Basophils/100 WBC (Bld) 0.2 % Normal 0.2-2.0 [facility] Comment on above: Performed By: #### C BC #### [facility] [address] [place] [address] Dr. Marilee Diaz EO # 0.0 103/ul Normal 0.0-0.7 [facility] Comment on above: Performed By: #### C BC #### [facility] [address] [place] [address] Dr. Marilee Diaz Eosinophils/100 WBC (Bld) 0.4 % Critically low 0.9-7.0 [facility] Comment on above: Performed By: #### C BC #### [facility] [address] [place] [address] Dr. Marilee Diaz Erythrocyte distribution width (RBC) [Ratio] 11.9 % Normal 11.0-15.0 [facility] Comment on above: Performed By: #### C BC #### [facility] [address] [place] [address] Dr. Marilee Diaz Hematocrit (Bld) [Volume fraction] 38.1 % Normal 36.0-48.0 [facility] Comment on above: Performed By: #### C BC #### [facility] [address] [place] [address] Dr. Marilee Diaz Hemoglobin (Bld) [Mass/Vol] 12.3 g/dL Normal 12.0-16.0 [facility] Comment on above: Performed By: #### C BC #### [facility] [address] [place] [address] Dr. Marilee Diaz IG # 0.02 10e3/ul Normal 0.00-0.03 [facility] Comment on above: Performed By: #### C BC #### [facility] [address] [place] [address] Dr. Marilee Diaz IG % 0.2 % Normal 0.0-0.5 [facility] Comment on above: Performed By: #### C BC #### [facility] [address] [place] [address] Dr. Marilee Diaz LYMPH # 2.7 103/ul Normal 1.2-3.8 [facility] Comment on above: Performed By: #### C BC #### [facility] [address] [place] [address] Dr. Marilee Diaz Lymphocytes/100 WBC (Bld) 31.8 % Normal 20.5-60.0 [facility] Comment on above: Performed By: #### C BC #### [facility] [address] [place] [address] Dr. Marilee Diaz MANUAL DIFF REQ NO Normal [facility] Comment on above: Performed By: #### C BC #### [facility] [address] [place] [address] Dr. Marilee Diaz MCH (RBC) [Entitic mass] 29.4 pg Normal 26.7-34.0 [facility] Comment on above: Performed By: #### C BC #### [facility] [address] [place] [address] Dr. Marilee Diaz MCHC (RBC) [Mass/Vol] 32.3 g/dL Normal 29.9-35.2 [facility] Comment on above: Performed By: #### C BC #### [facility] [address] [place] [address] Dr. Marilee Diaz MCV (RBC) [Entitic vol] 91.1 fL Normal 81.0-99.0 [facility] Comment on above: Performed By: #### C BC #### [facility] [address] [place] [address] Dr. Marilee Diaz MONO # 0.7 103/ul Normal 0.3-0.8 [facility] Comment on above: Performed By: #### C BC #### [facility] [address] [place] [address] Dr. Marilee Diaz Monocytes/100 WBC (Bld) 8.3 % Normal 1.7-12.0 [facility] Comment on above: Performed By: #### C BC #### [facility] [address] [place] [address] Dr. Marilee Diaz NEUT # 5.0 103/ul Normal 1.4-6.5 [facility] Comment on above: Performed By: #### C BC #### [facility] [address] [place] [address] Dr. Marilee Diaz Neutrophils/100 WBC (Bld) 59.1 % Normal 43.0-75.0 [facility] Comment on above: Performed By: #### C BC #### [facility] [address] [place] [address] Dr. Marilee Diaz Platelet mean volume (Bld) [Entitic vol] 9.7 fL Normal 9.5-13.5 [facility] Comment on above: Performed By: #### C BC #### [facility] [address] [place] [address] Dr. Marilee Diaz PLT 290 103/ul Normal 150-450 [facility] Comment on above: Performed By: #### C BC #### [facility] [address] [place] [address] Dr. Marilee Diaz RBC 4.18 106/ul Critically low 4.20-5.40 [facility] Comment on above: Performed By: #### C BC #### [facility] [address] [place] [address] Dr. Marilee Diaz WBC 8.4 103/ul Normal 4.0-11.0 [facility] Comment on above: Performed By: #### C BC #### [facility] [address] [place] [address] Dr. Marilee Diaz CBC COMPLETE BLOOD COUNTon 0 07-20-2021 Erythrocyte distribution width (RBC) [Ratio] 11.9 % Normal 11.5-15.0 [facility] Comment on above: Performed By: #### 5 0608 ####[facility] [place] [address], [facility] Hematocrit (Bld) [Volume fraction] 36.0 % Normal 36.0-45.0 [facility] Comment on above: Performed By: #### 5 0608 ####[facility] [place] [address], [facility] Hemoglobin (Bld) [Mass/Vol] 11.9 g/dL Low 12.0-15.0 [facility] Comment on above: Performed By: #### 5 0608 ####[facility] MCH (RBC) [Entitic mass] 29.7 pg Normal 27.0-33.0 [facility] Comment on above: Performed By: #### 5 0608 ####[facility] [place] [address] MCHC (RBC) [Mass/Vol] 33.1 g/dL Normal 32.0-35.0 [facility] Comment on above: Performed By: #### 5 0608 ####[address] MCV (RBC) [Entitic vol] 89.8 fL Normal 82.0-98.0 [facility] Comment on above: Performed By: #### 5 0608 ####[address] Nucleated RBC/100 WBC (Bld) [Ratio] 0 % Normal 0-0 [facility] Comment on above: Performed By: #### 5 0608 ####[address] PLAT CNT 281 10*3/uL Normal 150-400 The [facility] Comment on above: Performed By: #### 5 0608 ####[address] RBC (Bld) [#/Vol] 4.01 10*6/uL Normal 3.80-5.00 The [facility] Comment on above: Performed By: #### 5 0608 ####[address] WBC (Bld) [#/Vol] 6.83 10*3/uL Normal 4.00-10.60 [facility] Comment on above: Performed By: #### 5 0608 ####[facility] HEAD WO CONon 07-20-2021 CT [...] by: FERCHO ARIAS Date: 2021-07-20 02:53 Normal [facility] CTA HEAD WO W CONon 07-21-19 22 [...] 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 DEVELOPMENTAL ANOMALIES: takeoff of the left CORPORATE SECURITIES RESEARCH ANALYST. OTHER: No intracranial hemorrhage, enhancing intracranial mass [...] FERCHO ARIAS Date: 2021-07-20 04:07 Normal [facility] Covid-19 PCR ([facility])on SARS-CoV-2 (COVID-19) RNA FRANK+probe Ql (Unsp spec) Not detected Normal NOT DETECTED [facility] Comment on above: Result Comment: This test is not yet approved or cleared by the [place] FDA. When there are no FDA-approved or cleared tests available, and other criteria are met, FDA can make tests available under an emergency access mechanism called an Emergency Use Authorization (EUA). The EUA for this test is supported by the Ornamenter of Health and Human Service's (HHS's) declaration [...] consistent with SARS-CoV-2. Performed By: #### [facility] #### [facility] [address] [place] [address] Dr. Marilee Diaz [facility] 07-20-2021 Albumin [Mass/Vol] 4.3 g/dL Normal 3.5-5.7 The [facility] Comment on above: Performed By: #### 0 0071, 30160 #### [facility] [address] [place] [address], [facility] ALKALINE PHOSPH 57 IU/L Normal 34-104 The [facility] Comment on above: Performed By: #### 0 0071, 79025 #### [facility] [address] [place] [address], [facility] ALT [Catalytic activity/Vol] 12 U/L Normal 7-52 [facility] Comment on above: Performed By: #### 0 0071, 50948 #### [facility] [address] [facility] [place] [address], [facility] AST [Catalytic activity/Vol] 13 U/L Normal 13-39 [facility] Comment on above: Performed By: #### 0 0071, 38201 #### [facility] [address] [place] [address], [facility] Bilirubin [Mass/Vol] 0.3 mg/dL Normal 0.3-1.0 [facility] Comment on above: Performed By: #### 0 0071, 34751 #### [facility] [address] [place] [address], [facility] Bilirubin.direct [Mass/Vol] 0.1 mg/dL Normal 0.0-0.2 [facility] Comment on above: Performed By: #### 0 0071, 20224 #### [facility] [address] [place] [address], [facility] Protein [Mass/Vol] 6.5 g/dL Normal 6.0-8.3 The [facility] Comment on above: Performed By: #### 0 0071, 59416 #### [facility] [address] [place] [address], [facility] MRI STROKE ALERT BRAIN WO CO NTRASTon 04-01-2022 MRI STROKE ALERT BRAIN WO CONTRAST [facility] Department of Radiology [address] [place] [address] Patient Name: MAX BRAMBILA : 1995 Sex: F Age: Race: White Pt. Location: [facility] Patient Status: E Ordered Date: 07/20/2021 [...] brain. Electronically signed: Vance Jackson. Transcribed by: [email or web address], User Resident: Electronically Signed by: VANCE JACKSON @ 07/20/2021 08:18 AM Normal [facility] Comment on above: Order Comment: CVA POC GLUCOSE EDon 07-20-2021 Glucose [Mass/Vol] 90 mg/dL Normal 70-100 The [facility] Comment on above: Performed By: #### 9 1690 #### [facility] [address] [place], [place] [address] [place] [address] POC SARS COV2 ANTIGEN NEGATI VEon 07-20-2021 POC SARS COV2 ANTIGEN NEG Negative Normal NEGATIVE [facility] Comment on above: Result Comment: Nega tive [...] antigen from SARS-CoV-2 in direct nasopharyngeal swab ([facility]) specimens from individuals who are suspected of [...] Accreditation. Performed By: #### 3 2044 #### [facility] [address] [place] [address], [facility] POC SARS COV2 ANTIGEN NEG CANCELED Normal NEGATIVE [facility] Comment on above: Result Comment: The released value NEGATIVE was canceled by JOSE on 07/22/2021 12:28 Performed By: #### 3 2044 #### [facility] [address] [place] [address], [facility] POC URINE PREGNANCYon 2021 Beta HCG ( test) Ql (U) Negative Normal NEGATIVE [facility] Comment on above: Result Comment: Perf ormed in Emergency Department. Performed By: #### 8 4140 ####[facility] PORTABLE CHEST 1 VIEWon PORTABLE CHEST 1 VIEW [facility] Department of Radiology [address] [place] [id number] Patient Name: MAX BRAMBILA : 1995 Sex: F Age: Race: White Pt. Location: [facility] Patient Status: E Ordered Date: 07/20/2021 [...] IMPRESSION: No acute pulmonary process. Approved by:Swapna Valadez4/04/2021 6:41 AM. I, Parul Lipscomb,have reviewed the image(s) and agree with the findings in this report. Electronically signed: Parul Lipscomb. Transcribed by: [email or web address], User Resident: SWAPNA QUIROGA Electronically Signed by: PARUL MATTCLAUDYDelmar @ 07/20/2021 06:51 AM I personally read this/these film(s) with this resident Normal [facility] Comment on above: Order Comment: evalu ate for Infiltrates PROF 14(COMP METB)on 022 Albumin [Mass/Vol] 4.0 g/dL Normal 3.4-5.0 [facility] Comment on above: Performed By: #### C MP #### [facility] [address] [place] [address] Dr. Marilee Diaz Albumin/Globulin [Mass ratio] 1.1 {ratio} Normal [facility] Comment on above: Performed By: #### C MP #### [facility] [address] [place] [address] Dr. Marilee Diaz ALP [Catalytic activity/Vol] 83 U/L Normal 46-116 [facility] Comment on above: Performed By: #### C MP #### [facility] [address] [place] [address] Dr. Marilee Diaz ALT [Catalytic activity/Vol] 20 U/L Normal 14-59 [facility] Comment on above: Performed By: #### C MP #### [facility] [address] [place] [address] Dr. Marilee Diaz Anion gap [Moles/Vol] 12.5 mmol/L Normal [facility] Comment on above: Performed By: #### C MP #### [facility] [address] [place] [address] Dr. Marilee Diaz AST [Catalytic activity/Vol] 12 U/L Critically low 15-37 [facility] Comment on above: Performed By: #### C MP #### [facility] [address] [place] [address] Dr. Marilee Diaz Bilirubin [Mass/Vol] 0.3 mg/dL Normal 0.2-1.3 [facility] Comment on above: Performed By: #### C MP #### [facility] [address] [address] [address] Marilee Diaz Calcium [Mass/Vol] 9.1 mg/dL Normal 8.5-10.1 [facility] Comment on above: Performed By: #### C MP #### [facility] [address] [address] [address] Marilee Diaz Chloride [Moles/Vol] 103 mmol/L Normal 98-107 [facility] Comment on above: Performed By: #### C MP #### [facility] [address] [address] [address] Marilee Diaz CO2 [Moles/Vol] 26.2 mmol/L Normal 22.0-30.0 [facility] Comment on above: Performed By: #### C MP #### [facility] [address] [address] [address] Marilee Diaz Creatinine [Mass/Vol] 0.63 mg/dL Normal 0.52-1.04 [facility] Comment on above: Performed By: #### C MP #### [facility] [address] [address] [address] Marilee Diaz EGFR-AF GHANAIAN >60 Normal >=60 The [facility] Comment on above: Performed By: #### C MP #### [facility] [address] [place] [address] Dr. Marilee Diaz EGFR-NON AF GHANAIAN >60 Normal >=60 [facility] Comment on above: Performed By: #### C MP #### [facility] [address] [address] [address] Marilee Diaz Globulin (S) [Mass/Vol] 3.5 g/dL Normal [facility] Comment on above: Performed By: #### C MP #### [facility] [address] [place] [address] Dr. Marilee Diaz Glucose [Mass/Vol] 104 mg/dL Normal 74-106 The [facility] Comment on above: Performed By: #### C MP #### [facility] [address] [address] [address] Marilee Diaz Potassium [Moles/Vol] 3.7 mmol/L Normal 3.4-5.0 [facility] Comment on above: Performed By: #### C MP #### [facility] [address] [address] [address] Marilee Diaz Protein [Mass/Vol] 7.5 g/dL Normal 6.1-8.2 [facility] Comment on above: Performed By: #### C MP #### [facility] [address] [address] [address] Marilee Diaz Sodium [Moles/Vol] 138 mmol/L Normal 137-145 [facility] Comment on above: Performed By: #### C MP #### [facility] [address] [place] [address] Dr. Marilee Diaz Urea nitrogen [Mass/Vol] 15.0 mg/dL Normal 7.0-18.0 [facility] Comment on above: Performed By: #### C MP #### [facility] [address] [place] [address] Dr. Marilee Diaz Urea nitrogen/Creatinine [Mass ratio] 23.8 mg/mg Normal [facility] Comment on above: Performed By: #### C MP #### [facility] [address] [place] [address] Dr. Marilee Diaz PROTHROMBIN TIMEon 2 INR Coag (PPP) [Relative time] 0.95 {INR} Normal 0.91-1.16 [facility] Comment on above: Result Comment: ACCC P [...] CHEST 1995;[id number]. Performed By: #### 5 6101, 67360 #### [facility] [address] [facility] [address] PT Coag (PPP) [Time] 12.7 s Normal 12.3-14.8 [facility] Comment on above: Result Comment: ALL RESULTS MUST BE INTERPRETED WITH RESPECT TO BLOOD DRAWING ARTIFACT OR DILUTION ERROR OF ANTICOAGULANT AT THE TIME OF SAMPLING. Performed By: #### 5 6101, 23836 #### [facility] [address] [facility]. [address] PROTIMEon 07-20-2021 INR Coag (PPP) [Relative time] 0.94 {INR} Normal [facility] Comment on above: Performed By: #### P T, PTT #### [facility] [address] [place] [address] Dr. Marilee Diaz INR GUIDELINES SEE BELOW Normal The [facility] Comment on above: Result Comment: POLA RED INR: 2.0 - 3.0 CONDITIONS NOT LISTED BELOW 2.5 - 3.5 FOR PROSTHETIC HEART VALVE REPLACEMENT 2.5 - 3.5 RECURRENT THROMBOSIS Performed By: #### P T, PTT #### [facility] [address] [place] [address] Dr. Marilee Diaz PT Coag (PPP) [Time] 10.2 s Normal 9.0-11.6 [facility] [facility] Comment on above: Performed By: #### P T, PTT #### [facility] [address] [place] [address] Dr. Marilee Diaz PTTon 07-20-2021 aPTT Coag (Bld) [Time] 26.3 s Normal 22.3-36.2 [facility] Comment on above: Performed By: #### P T, PTT #### [facility] [address] [place], [place] [address] Dr. Marilee Diaz Covid-19 PCR ([facility])on 12-21 SARS-CoV-2 (COVID-19) RNA FRANK+probe Ql (Unsp spec) Not detected Normal NOT DETECTED [facility] Comment on above: Result Comment: This test is not yet approved or cleared by the [place] FDA. When there are no FDA-approved or cleared tests available, and other criteria are met, FDA can make tests available under an emergency access mechanism called an Emergency Use Authorization (EUA). The EUA for this test is supported by the [place] of Health and Human Service's (HHS's) declaration [...] SARS-CoV-2. Performed By: #### C VDTBH #### [facility] [address] [place], [place] [address] Dr. Marilee Diaz Vital Signs Date Time Vital Sign Value Performing Clinician Facility 05-20-2024 16:48-0500 Body height 149.86 cm [facility] 05-20-2024 16:48-0500 Body mass index (BMI) [Ratio] 27 kg/m2 [facility] 05-20-2024 16:48-0500 Body temperature 98.4 [degF] [facility] 05-20-2024 16:48-0500 Body weight 60.78 kg [facility] 05-20-2024 16:48-0500 Diastolic blood pressure 76 mm[Hg] [facility] 05-20-2024 16:48-0500 Heart rate 86 /min [facility] 05-20-2024 16:48-0500 Respiratory rate 14 /min [facility] 05-20-2024 16:48-0500 SaO2% (BldA) [Mass fraction] 99 % [facility] 05-20-2024 16:48-0500 Systolic blood pressure 114 mm[Hg] [facility] 05-03-2024 09:35-0500 Body mass index (BMI) [Ratio] 28.03 kg/m2 Brittany Michele DO Work Phone: [facility] 05-03-2024 09:35-0500 Body weight 62.96 kg Brittany Michele DO Work Phone: [facility] 05-03-2024 09:35-0500 Diastolic blood pressure 60 mm[Hg] Brittany Michele DO Work Phone: [facility] 05-03-2024 09:35-0500 Systolic blood pressure 110 mm[Hg] Brittany Michele DO Work Phone: [facility] 12-31-2023 15:10-0400 Body height 152.4 cm Vance Miller MD Work Phone: [facility] 12-31-2023 15:10-0400 Body mass index (BMI) [Ratio] 26.95 kg/m2 Vance Miller MD Work Phone: [facility] 12-31-2023 15:10-0400 Body temperature 98.2 [degF] Vance Miller MD Work Phone: [facility] 12-31-2023 15:10-0400 Body weight 62.6 kg Vance Miller MD Work Phone: [facility] 12-31-2023 15:10-0400 Diastolic blood pressure 70 mm[Hg] Vance Miller MD Work Phone: [facility] 12-31-2023 15:10-0400 Heart rate 72 /min Vance Miller MD Work Phone: [facility] 12-31-2023 15:10-0400 Respiratory rate 16 /min Vance Miller MD Work Phone: [employer] 12-31-2023 15:10-0400 Systolic blood pressure 110 mm[Hg] Vance Miller MD Work Phone: [facility] Encounters Encounter Date Encounter Type Care Provider Facility Start: 06-21-2024 End: 06-22-2024 Clinisync Result Encounter Brittany Michele DO Work Phone: [facility] Unsolicited Start: 06-21-2024 End: 06-22-2024 Clinisync Result Encounter Brittany Michele DO Work Phone: [facility] Unsolicited Start: 05-25-2024 End: 05-26-2024 Clinisync Result Encounter Brittnay Michele DO Work Phone: [facility] Unsolicited Start: 05-25-2024 End: 05-26-2024 Clinisync Result Encounter Brittany Michele DO Work Phone: [facility] Unsolicited Start: 05-20-2024 End: 05-20-2024 ambulatory [facility] Work Phone: Start: 05-20-2024 End: 05-20-2024 Patient encounter procedure [facility] Work Phone: Start: 05-03-2024 [...] Department Unsolicited Start: 01-08-2024 End: 01-08-2024 [facility] Start: 01-08-2024 Encounter for genera l adult medical examination without abnormal findings [facility] Start: 12-31-2023 End: 12-31-2023 Patient encounter status Vance Miller MD [facility] Work Phone: Start: 12-31-2023 End: 12-31-2023 Periodic preventive med est patient 18-39 yrs Vance Miller MD Work Phone: [facility] Comment on above: Routine general medi charisse examination at a health care facility (Primary Dx) Start: 12-31-2023 End: 12-31-2023 ambulatory [facility] Start: 12-31-2023 Encounter for genera l adult medical examination without abnormal findings [facility] Start: 12-11-2023 End: 12-12-2023 Clinisync Result Encounter Brittany Michele DO Work Phone: [facility] Unsolicited Start: 12-11-2023 End: 12-12-2023 Clinisync Result Encounter Brittany Michele DO Work Phone: [facility] Unsolicited Start: 11-03-2023 End: 11-03-2023 ambulatory BRITTANY MICHELE Not Available Start: 07-01-2023 End: 07-01-2023 ambulatory BRITTANY MICHELE Not Available Start: 07-20-2021 End: 07-20-2021 Emergency department patient visit RAMESH PHAM Facility:[facility] Start: 07-20-2021 End: 07-20-[address] CHUY KC Facility: Start: 01-09-2021 End: 01-09-[address] VANCE MILLER Facility:[facility] Procedures Date Procedure Procedure Detail Performing Clinician Start: 06-21-2024 ALL PROGESTERONE Brittany Michele DO Work Phone: Start: 05-25-2024 ALL PROGESTERONE Brittany Michele DO [...] Td Vaccines (8 - Td or Tdap) [facility] Start: 12-31-2024 Screening for malign ant neoplasm of cervix Pap Smear [facility] Start: 09-15-2024 End: 09-15-2024 Patient encounter procedure 09/15/2024 2:20 PM EDT Office Visit [facility] [address] [place] [id number] Brittany Bautista, DO [address] [place] [address] [facility] Start: 09-02-2024 End: 09-02-2024 Patient encounter procedure 09/02/2024 9:40 AM EDT Office Visit [facility] [address] [place] [id number] Brittany Bautista, DO [address] [place] [address] [facility] Start: 05-03-2024 End: 05-03-2024 Patient encounter procedure 05/03/2024 9:40 AM EST Office Visit [facility] [address] [facility] [place] [address] Brittany Bautista DO [address] [facility] [place] [address] Arrived [facility] Comment on above: Arrived Start: 12-31-2023 End: 12-30-2024 Glucose random or fasting Glucose random or fasting Lab Routine Routine general medical examination at a health care facility Expected: 12/31/2023, Expires: 12/30/2024 [facility] Work Phone: Comment on above: Expected: 12/31/2023 , Expires: 12/30/2024 Start: 12-27-2023 Adult BMI Screening Adult BMI Screen ing [facility] Start: 12-27-2023 Depression Screening Depression Scre ening [facility] Start: 12-27-2023 Tobacco Screening Tobacco Screening [facility] Start: 12-21-2023 COVID-19 Vaccine ( season) COVID-19 Vaccine ( season) [facility] Start: 12-21-2023 Influenza vaccination [facility] Immunizations Immunization Date Immunization Notes [facility] Seasonal, quadrivale nt, recombinant, injectable influenza vaccine, preservative free Vance Miller MD Work Phone: [facility] 02-10-2023 influenza virus vaccine, unspecified formulation Brittany Bautista DO Work Phone: [facility] 02-04-2023 influenza virus vaccine, unspecified formulation Vance Miller MD Work Phone: [facility] 09-21-2021 tetanus toxoid, redu dov diphtheria toxoid, and acellular pertussis vaccine, adsorbed Vance Miller MD Work Phone: [facility] 02-09-2021 Seasonal, quadrivale nt, recombinant, injectable influenza vaccine, preservative free Vance Miller MD Work Phone: [facility] 02-10-2020 Seasonal, quadrivale nt, recombinant, injectable influenza vaccine, preservative free Vance Miller MD Work Phone: [facility] 04-08-2011 tetanus toxoid, redu dov diphtheria toxoid, and acellular pertussis vaccine, adsorbed Vance Miller MD Work Phone: [facility] 07-03-2000 diphtheria, tetanus toxoids and acellular pertussis vaccine, unspecified formulation Vance Miller MD Work Phone: [facility] 07-03-2000 measles, mumps and rubella virus vaccine Vance Miller MD Work Phone: [facility] 07-03-2000 poliovirus vaccine, inactivated Vance Miller MD Work Phone: [facility] 07-03-2000 varicella virus vaccine John tiffany Miller MD Work Phone: [facility] 09-06-1996 diphtheria, tetanus toxoids and acellular pertussis vaccine, unspecified formulation Vance Miller MD Work Phone: [facility] 09-06-1996 haemophilus influenz ae type b vaccine, conjugate unspecified formulation Vacne Miller MD Work Phone: [facility] 09-06-1996 measles, mumps and rubella virus vaccine Vance Miller MD Work Phone: [facility] 02-09-1996 DTP-Haemophilus influenzae type b conjugate vaccine Vance Miller MD Work Phone: [facility] 02-09-1996 hepatitis B vaccine, pediatric or pediatric/adolescent dosage Vance Miller MD Work Phone: [facility] 02-09-1996 trivalent poliovirus vaccine, live, oral Vance Miller MD Work Phone: [facility] 1995 DTP-Haemophilus influenzae type b conjugate vaccine Vance Miller MD Work Phone: [facility] 1995 trivalent poliovirus vaccine, live, oral Vance Miller MD Work Phone: [facility] 1995 DTP-Haemophilus influenzae type b conjugate vaccine Vance Miller MD Work Phone: [facility] 1995 hepatitis B vaccine, pediatric or pediatric/adolescent dosage Vance Miller MD Work Phone: [facility] 1995 trivalent poliovirus vaccine, live, oral Vance Miller MD Work Phone: [facility] 1995 hepatitis B vaccine, pediatric or pediatric/adolescent dosage Vance Miller MD Work Phone: [facility] Payers Date Payer Category Payer Private Health Insurance [id number] 2022 Private Health Insurance [id number] 1995 Unknown [id number] 1995 Unknown [id number] 2.16.84 [id number] 1995 Unknown [id number] 2.16.8 [id number] 1995 Unknown [id number] 2.16.8 [id number] 1995 Unknown [id number] 2.16.8 [id number] 1995 Unknown [id number] 2.16.84 [id number] 1995 Unknown [id number] 2.16.84 [id number] 1995 Unknown [id number] 1959 Unknown [id number] Social History Date Type Detail Facility Start: 12-26-2022 End: 06-10-2023 Tobacco smoking status NHIS Never smoked tobacco [facility] Start: 11-03-2023 End: 05-03-2024 Alcoholic beverage intake Lifetime non-drinker (finding) [facility] Start: 05-09-2020 End: 06-10-2023 History of Social function [facility] Start: 05-09-2020 End: 06-10-2023 Tobacco use panel [facility] Start: 06-10-2023 Alcohol Comment caffeine:2-[address] [facility] Start: 1995 Sex assigned at Female N [facility] Start: 2023 Gender identity Identifies as female gender (finding) [facility] Start: 05-20-2024 Sex Female (finding) [facility] Start: 12-26-2022 Tobacco use and exposure Smokeless tobacco non-user [facility] Start: 12-31-2023 Alcoholic beverage intake Current non-drinker of alcohol (finding) [facility] How hard is it for y ou to pay for the very basics like food, housing, medical care, and heating Not very hard [facility] Adolescent depressio n screening assessment 0 [facility] Start: 1995 Sex assigned at Not on file P [facility] History of Present illness Narrative 05-03-2024 Luisa Munoz LPN - 05/03/2024 9:40 AM EST Note Date [...] nursing note reviewed. Exam conducted with a pharmacy tech present. Vitals: Estimated body mass index is 28.03 kg/m as calculated from the following: Height as of 22: 4' 11 . Weight as of this [...] History of Present illness Narrative 12-31-2023 Vance Mliler MD - 12/31/2023 3:15 PM EDT Note Date & Type Note Facility 12-31-2023 History of Presen t illness Narrative Images from the original note were not included. [address] [place] [address] SUBJECTIVE: Patient ID: Max Brambila is a 28 y.o. female. 28 yo WF with woo, f/u obgyn for fertility issues, nonsmoker, ethanol [...] fasting Obgyn f/u documented in this encounter [facility] Discharge summary note 07-31-2021 Note Date & Type Note Facility 07-31-2021 Note MR#: [id number] E [facility] Pt. 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 CONSULTATIONS: Neurology/Stroke Service. HOSPITAL COURSE: A 26-year-old female presented to [facility] as a hospital transfer from [facility] after being accepted by Dr. [...] GCS of 15 with NIH 4 in [facility]. Labs unremarkable. Patient received fentanyl [...] follow up with Cardiology, Dr. Reynolds at [facility]. The patient to set up [...] documentation from me. Date Dict: 07/31/2021/08:19 P/Danyelle Lambert, [employer] WORK[employer] Date Trans: 07/31/2021 08:55 P/oneilo [id number] cc: Vance Miller M.D. [address] [facility] [address] [place] M.D. E R Physican...do Not Send [address] [address] [facility] Evaluation note Note Date & Type Note Facility Evaluation note Diagnosis Encounter for fertility planning documented in this encounter [facility] Evaluation note Note Date & Type Note Facility Evaluation note Diagnosis Onset Date Resolution Allergic reaction noneactive May 20, 2024 4:45pm [facility] Work Phone: Evaluation note Note Date & Type Note Facility Evaluation note Diagnosis Routine general medical examination at a health care facility- Primary documented in this encounter [facility] Instructions Attachments Note Date & Type Note Facility Instructions The following attachments cannot be sent through Care Everywhere.Yearly Physical for Adults (Kittitian)documented in this encounter [facility] Summary Purpose Family History No Family [...] and content) DATE CREATED AUTHOR 08/02/2021 [facility] DATE CREATED AUTHOR AUTHOR'S ORGANIZ ATION 08/02/2021 [facility] DATE CREATED AUTHOR AUTHOR'S ORGANIZ ATION 01/02/2024 [facility] DATE CREATED AUTHOR AUTHOR'S ORGANIZ ATION 01/10/2024 [facility] DATE CREATED AUTHOR AUTHOR'S ORGANIZ ATION 05/06/2024 [facility] dical Specialists EP[employer] Care Teams (unrecognized sec tion and content) Merchandise Carrier Relationship Specialty Start Date End Date Vance Miller MD [address] [place] [address] PCP - General Family Medicine 07/01/23 Merchandise Carrier Relationship Specialty Start Date End Date Vance Miller MD [address] [place] [address] PCP - General Family Medicine 07/01/23 Merchandise Carrier Relationship Specialty Start Date End Date Vance Miller MD [address] [place] [address] PCP - General Family Medicine 07/01/23 Team Status: Active Member Role Status Dates Vance Miller MD Primary Care Provider Active Team Status: Inactive Member Role Status Dates Vance Miller MD Primary Care Provider Active Start: May 20, 2024 End: May 20, 2024 Yue Waller APRN Attending Provider Active Start: May 20, 2024 End: May 20, 2024 Merchandise Carrier Relationship Specialty Start Date End Date Vance Miller MD [address] [place], [place] [id number] PCP - General Family Medicine 07/01/23 Merchandise Carrier Relationship Specialty Start Date End Date Vance Miller MD [address] [place], [place] [id number] PCP - General Family Medicine 05/13/17 Reason [...] BE BASED ON THE PRIMARY CLINICAL RECORDS. [facility] [employer] [facility]. provides no warranty or guarantee of the accuracy or completeness of information in this document.
[2024-07-17 04:11] LABS: Progesterone 4.6 ng/mL (.)
== END 2024-07-16 07:44 | disposition home or self-care (01) ==
LOC: LAB 07:43
PROVIDERS: PCP Family Medicine; Visit Provider Obstetrics & Gynecology
DX: N97.0 Female infertility associated with anovulation (principal); N83.9 Noninflammatory disorder of ovary, fallopian tube and broad ligament, unspecified
CPT/HCPCS: 36415; 84144

== ENCOUNTER 2024-07-28 16:31 | Outpatient (RCR) | payer OTHER, SELFPAY ==
--- OUTSIDE RECORDS SUMMARY | 2024-07-28 16:54 | XMS_ITS | CCD ---
Author Organization [facility] Care Team Providers Care Dry Box Tender Name Role Phone DR CHUY KC Attending Unavailable DEFRANCE, DR WOODARD Primary Care Unavailable RENO, DR CHUY Sarmiento Admitting Unavailable KC, DR CHUY Sarmiento Consulting Unavailable Arias, Fercho Consulting Unavailable DEFRANCE, DR WOODARD Admitting Unavailable DEFRANCE, DR WOODARD Consulting Unavailable DEFRANCE, DR WOODARD Attending Unavailable STEENHOFF, RAMESH Attending Unavailable STEENHOFFRAMESH Admitting Unavailable DEFRANCE, VANCE Primary Care Unavailable CHUY KC Referring Unavailable VANCE MILLER Attending VANCE Root Referring Unavailable VANCE MILLER Primary Care Unavailable VANCE MILLER Referring Unavailable VANCE MILLER Primary Care Vance Root MD Primary Care Provider BRITTANY BAUTISTA Attending Unavailable BRITTANY BAUTISTA Attending Unavailable BRITTANY BAUTISTA Attending Unavailable Vance Miller MD Primary Care Provider [phone] Vance Miller MD Primary Care Provider Allergies Allergy Classification Reported Allergen(s) Allergy Type Date of Onset Reaction(s) Facility (11 sources) Sulfamethoxazole / Trimethoprim; Translations: [SULFAMETHOXAZOLE-TR IMETHOPRIM] [...] hydrochloride 500 mg extended release oral tablet (9 sources) Biguanide Start: 12-08-2023 End: 01-04-2025 take [...] Vit-Fe Fumarate-FA ( Plus) 27-1 MG tablet (8 sources) Start: 12-31-2021 Vit-Fe Fumarate-FA ( Plus) 27-1 MG tablet 1 (one) time each day at the same time 12/31/2021 Active sertraline 50 mg oral tablet (6 sources) Serotonin Reuptake Inhibitor Start: 03-29-2024 take [...] other procreative management] 05-03-2024 Episodic Female infertility (3 sources) Anovulation; Translations: [Female infertility associated with anovulation] Onset: 05-05-2024 05-05-2024 Chronic Malaise and fatigue (4 sources) Weakness; Translations: [WEAKNESS] Onset: 07-20-2021 Episodic Other endocrine disorders (3 sources) Polycystic ovary syndrome; Translations: [Polycystic ovarian syndrome] Onset: 05-05-2024 05-05-2024 Chronic Other female genital disorders (3 sources) Fallopian tube disorder; Translations: [Noninflammatory disorder [...] Range Facil ity ALL PROGESTERONEon 5 PROGESTERONE 4.6 ng/mL . [facility] are Comment on above: Follicular phase 0.1 - 0.9 Luteal phase 1.8 - 23.9 Ovulation phase 0.1 - 12.0 First trimester 11.0 - 44.3 Second trimester 25.4 - 83.3 Third trimester 58.7 - 214.0 Postmenopausal 0.0 - 0.1 Performed at: [facility] [address] [id number] Letter Sorting Machine Operator: Fan Trotter PhD, Phone: [phone] [facility] [place] e ALL PROGESTERONEon 5 PROGESTERONE 0.9 ng/mL . [facility] Health are Comment on above: Follicular phase 0.1 - 0.9 Luteal phase 1.8 - 23.9 Ovulation phase 0.1 - 12.0 First trimester 11.0 - 44.3 Second trimester 25.4 - 83.3 Third trimester 58.7 - 214.0 Postmenopausal 0.0 - 0.1 Performed at: [address] [id number] Letter Sorting Machine Operator: Fan Trotter PhD, Phone: [phone] e ALL PROGESTERONEon 5 PROGESTERONE 21.1 ng/mL . [facility] Health are Comment on above: Follicular phase 0.1 - 0.9 Luteal phase 1.8 - 23.9 Ovulation phase 0.1 - 12.0 First trimester 11.0 - 44.3 Second trimester 25.4 - 83.3 Third trimester 58.7 - 214.0 Postmenopausal 0.0 - 0.1 Performed at: [facility] [address] [id number] Letter Sorting Machine Operator: Fan Trotter PhD, Phone: [phone] e ALL PROGESTERONEon 4 PROGESTERONE 34.0 ng/mL . [facility] are Comment on above: Follicular phase 0.1 - 0.9 Luteal phase 1.8 - 23.9 Ovulation phase 0.1 - 12.0 First trimester 11.0 - 44.3 Second trimester 25.4 - 83.3 Third trimester 58.7 - 214.0 Postmenopausal 0.0 - 0.1 Performed at: [facility] [address] [id number] Letter Sorting Machine Operator: Fan Trotter PhD, Phone: [phone] [employer] e GLUCOSEon 01-08-2024 Glucose [Mass/Vol] 94 mg/dL Normal 65-99 [facility] Comment on above: Performed By: #### 2 345-7 #### [facility] ([id number]) [address] [facility] [address] [place] [address] ALL PROGESTERONEon 4 PROGESTERONE 28.4 ng/mL . [facility] are Comment on above: Follicular phase 0.1 - 0.9 Luteal phase 1.8 - 23.9 Ovulation phase 0.1 - 12.0 First trimester 11.0 - 44.3 Second trimester 25.4 - 83.3 Third trimester 58.7 - 214.0 Postmenopausal 0.0 - 0.1 Performed at: - [address] [id number] Letter Sorting Machine Operator: Fan Trotter PhD, Phone: [phone] [facility] e APTTon 07-20-2021 aPTT Coag (Bld) [Time] 27.3 s Normal 25.0-35.0 The [facility] Comment on above: Result Comment: ALL RESULTS [...] THIS PURPOSE. Performed By: #### 5 [id number], [id number] #### [facility] [address] BASIC METABOLIC PANELon Calcium [Mass/Vol] 9.1 mg/dL Normal 8.6-10.3 [facility] Comment on above: Performed By: #### 0 0071, [id number] #### [facility] [address] [facility] [place] [address], [facility] Chloride [Moles/Vol] 104 mmol/L Normal 98-107 The [facility] Comment on above: Performed By: #### 0 0071, 11521 #### [facility] [address] [facility] [place] [address], [facility] CO2 [Moles/Vol] 24 mmol/L Normal 21-31 [facility] Comment on above: Performed By: #### 0 0071, 53550 #### [facility] [address] [facility] [place] [address], [place] Creatinine [Mass/Vol] 0.52 mg/dL Low 0.60-1.20 The [facility] Comment on above: Performed By: #### 0 0071, 62836 #### [facility] [address] [place] [address], [place] GFR/1.73 sq M.predicted among blacks MDRD (S/P/Bld) [Vol rate/Area] mL/min/{1.73_m2} Normal >60 The [facility] Comment on above: Performed By: #### 0 0071, 98675 #### [facility] [address] [place] [address], [place] GFR/1.73 sq M.predicted among non-blacks MDRD (S/P/Bld) [Vol rate/Area] mL/min/{1.73_m2} Normal >60 The [facility] Comment on above: Performed By: #### 0 0071, 89216 #### [facility] [address] [place] [address], [place] Glucose [Mass/Vol] 87 mg/dL Normal 70-100 The [facility] Comment on above: Performed By: #### 0 0071, 71388 #### [facility] [address] [place] [address], [place] Potassium [Moles/Vol] 3.7 mmol/L Normal 3.5-5.1 The [facility] Comment on above: Performed By: #### 0 0071, 20005 #### [facility] [address] [place] [address], [place] Sodium [Moles/Vol] 137 mmol/L Normal 136-145 The [facility] Comment on above: Performed By: #### 0 0071, 36499 #### [facility] [address] [place] [address], [place] Urea nitrogen [Mass/Vol] 13 mg/dL Normal 7-25 The [facility] Comment on above: Performed By: #### 0 0071, 67853 #### [facility] [address] CBC AUTO DIFFon 07-20-2021 BASO # 0.0 103/ul Normal 0.0-0.1 [facility] Comment on above: Performed By: #### C BC #### [facility] [address] [place] [address] Dr. Marilee Diaz Basophils/100 WBC (Bld) 0.2 % Normal 0.2-2.0 [facility] Comment on above: Performed By: #### C BC #### [facility] [address] [place] [address] Dr. Marilee Diaz EO # 0.0 103/ul Normal 0.0-0.7 [facility] Comment on above: Performed By: #### C BC #### [facility] [address] [place] [address] Dr. Marilee Diaz Eosinophils/100 WBC (Bld) 0.4 % Critically low 0.9-7.0 [facility] Comment on above: Performed By: #### C BC #### [facility] [address] [place] [address] Dr. Marilee Diaz Erythrocyte distribution width (RBC) [Ratio] 11.9 % Normal 11.0-15.0 [facility] Comment on above: Performed By: #### C BC #### [facility] [address] [place] [address] Dr. Marilee Diaz Hematocrit (Bld) [Volume fraction] 38.1 % Normal 36.0-48.0 [facility] Comment on above: Performed By: #### C BC #### [facility] [address] [place] [address] Dr. Marilee Diaz Hemoglobin (Bld) [Mass/Vol] 12.3 g/dL Normal 12.0-16.0 [facility] Comment on above: Performed By: #### C BC #### [facility] [address] [place] [address] Dr. Marilee Diaz IG # 0.02 10e3/ul Normal 0.00-0.03 [facility] Comment on above: Performed By: #### C BC #### [facility] [address] [place] [address] Dr. Marilee Diaz IG % 0.2 % Normal 0.0-0.5 [facility] Comment on above: Performed By: #### C BC #### [facility] [address] [place] [address] Dr. Marilee Diaz LYMPH # 2.7 103/ul Normal 1.2-3.8 [facility] Comment on above: Performed By: #### C BC #### [facility] [address] [place] [address] Dr. Marilee Diaz Lymphocytes/100 WBC (Bld) 31.8 % Normal 20.5-60.0 [facility] Comment on above: Performed By: #### C BC #### [facility] [address] [place] [address] Dr. Marilee Diza MANUAL DIFF REQ NO Normal [facility] Comment on above: Performed By: #### C BC #### [facility] [address] [place] [address] Dr. Marilee Diaz MCH (RBC) [Entitic mass] 29.4 pg Normal 26.7-34.0 [facility] Comment on above: Performed By: #### C BC #### [facility] [address] [place] [address] Dr. Marilee Diaz MCHC (RBC) [Mass/Vol] 32.3 g/dL Normal 29.9-35.2 [facility] Comment on above: Performed By: #### C BC #### [facility] [address] [place] [address] Dr. Marilee Diaz MCV (RBC) [Entitic vol] 91.1 fL Normal 81.0-99.0 [facility] Comment on above: Performed By: #### C BC #### [facility] [address] [place] [address] Dr. Marilee Diaz MONO # 0.7 103/ul Normal 0.3-0.8 [facility] Comment on above: Performed By: #### C BC #### [facility] [address] [address] [address] Marilee Diaz Monocytes/100 WBC (Bld) 8.3 % Normal 1.7-12.0 [facility] Comment on above: Performed By: #### C BC #### [facility] [address] [address] [address] Marilee Diaz NEUT # 5.0 103/ul Normal 1.4-6.5 The [facility] Comment on above: Performed By: #### C BC #### [facility] [address] [address] [address] Marilee Diaz Neutrophils/100 WBC (Bld) 59.1 % Normal 43.0-75.0 The [facility] Comment on above: Performed By: #### C BC #### [facility] [address] [address] [address] Marilee Diaz Platelet mean volume (Bld) [Entitic vol] 9.7 fL Normal 9.5-13.5 [facility] Comment on above: Performed By: #### C BC #### [facility] [address] [address] [address] Marilee Diaz PLT 290 103/ul Normal 150-450 The [facility] Comment on above: Performed By: #### C BC #### [facility] [address] [address] [address] Marilee Diaz RBC 4.18 106/ul Critically low 4.20-5.40 The [facility] Comment on above: Performed By: #### C BC #### [facility] [address] [address] [address] Marilee Diaz WBC 8.4 103/ul Normal 4.0-11.0 The [facility] Comment on above: Performed By: #### C BC #### [facility] [address] [address] [address] Marilee Diaz CBC COMPLETE BLOOD COUNTon 0 - Erythrocyte distribution width (RBC) [Ratio] 11.9 % Normal 11.5-15.0 [facility] Comment on above: Performed By: #### 5 0608 ####[facility]3000 [facility] Hematocrit (Bld) [Volume fraction] 36.0 % Normal 36.0-45.0 The [facility] Comment on above: Performed By: #### 5 0608 ####[facility] Hemoglobin (Bld) [Mass/Vol] 11.9 g/dL Low 12.0-15.0 The [facility] Comment on above: Performed By: #### 5 0608 ####[address] MCH (RBC) [Entitic mass] 29.7 pg Normal 27.0-33.0 The [facility] Comment on above: Performed By: #### 5 0608 ####[facility] [place] [address] MCHC (RBC) [Mass/Vol] 33.1 g/dL Normal 32.0-35.0 The [facility] Comment on above: Performed By: #### 5 0608 ####[place] [id number] [address] MCV (RBC) [Entitic vol] 89.8 fL Normal 82.0-98.0 The [facility] Comment on above: Performed By: #### 5 0608 ####[facility] Nucleated RBC/100 WBC (Bld) [Ratio] 0 % Normal 0-0 The [facility] Comment on above: Performed By: #### 5 0608 ####[facility] PLAT CNT 281 10*3/uL Normal 150-400 The [facility] Comment on above: Performed By: #### 5 0608 ####[facility] [facility] [place] [address], [facility] RBC (Bld) [#/Vol] 4.01 10*6/uL Normal 3.80-5.00 The [facility] Comment on above: Performed By: #### 5 0608 ####[facility] [facility] [place] [place] [address], [facility] WBC (Bld) [#/Vol] 6.83 10*3/uL Normal 4.00-10.60 The [facility] Comment on above: Performed By: #### 5 0608 ####[facility]3000 [facility] HEAD WO CONon 07-20-2021 CT [...] by: FERCHO ARIAS Date: 2021-07-20 02:53 Normal [facility] CTA HEAD WO W CONon 07-21-19 [...] 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 DEVELOPMENTAL ANOMALIES: takeoff of the left BIAS CUTTER HELPER. OTHER: No intracranial hemorrhage, enhancing intracranial mass [...] FERCHO ARIAS Date: 2021-07-20 04:07 Normal The [facility] Covid-19 PCR (CVDTB)on SARS-CoV-2 (COVID-19) RNA FRANK+probe Ql (Unsp spec) Not detected Normal NOT DETECTED The [facility] Comment on above: Result Comment: This test is not yet approved or cleared by the [place] FDA. When there are no FDA-approved or cleared tests available, and other criteria are met, FDA can make tests available under an emergency access mechanism called an Emergency Use Authorization (EUA). The EUA for this test is supported by the Superintendent Operating of Health and Human Service's (HHS's) declaration [...] consistent with SARS-CoV-2. Performed By: #### [facility] #### [facility] [address] [place] [address] Dr. Marilee Diaz LIVER BATTERYon 07-20-2021 Albumin [Mass/Vol] 4.3 g/dL Normal 3.5-5.7 [facility] Comment on above: Performed By: #### 0 0071, 02780 #### [facility] [address] [place] [address], [facility] ALKALINE PHOSPH 57 IU/L Normal 34-104 [facility] Comment on above: Performed By: #### 0 0071, 96786 #### [facility] [address] [place] [address], [place] ALT [Catalytic activity/Vol] 12 U/L Normal 7-52 [facility] Comment on above: Performed By: #### 0 0071, 83203 #### [facility] [address] [place] [address], [place] AST [Catalytic activity/Vol] 13 U/L Normal 13-39 The [facility] Comment on above: Performed By: #### 0 0071, 67580 #### [facility] [address] [place] [address], [place] Bilirubin [Mass/Vol] 0.3 mg/dL Normal 0.3-1.0 The [facility] Comment on above: Performed By: #### 0 0071, 81482 #### [facility] [address] [place] [address], [place] Bilirubin.direct [Mass/Vol] 0.1 mg/dL Normal 0.0-0.2 The [facility] Comment on above: Performed By: #### 0 0071, 72534 #### [address] Protein [Mass/Vol] 6.5 g/dL Normal 6.0-8.3 [facility] Comment on above: Performed By: #### 0 0071, 76721 #### [address] MRI STROKE ALERT BRAIN WO CO NTRASTon 07-20-2021 MRI STROKE ALERT BRAIN WO CONTRAST [facility] Department of Radiology [address] [place], [place] [id number] Patient Name: MAX BRAMBILA : 1995 Sex: F Age: Race: White Pt. Location: [facility] Patient Status: E Ordered Date: 07/20/2021 6:05:00 [...] brain. Electronically signed: Vance Jackson. Transcribed by: [email or web address], User Resident: Electronically Signed by: VANCE JACKSON @ 07/20/2021 08:18 AM Normal The [facility] Comment on above: Order Comment: CVA POC GLUCOSE EDon 07-20-2021 Glucose [Mass/Vol] 90 mg/dL Normal 70-100 The [facility] Comment on above: Performed By: #### 9 1690 #### [facility] [address] [facility] POC SARS COV2 ANTIGEN NEGATI VEon 07-20-2021 POC SARS COV2 ANTIGEN NEG Negative Normal NEGATIVE The [facility] Comment on above: Result Comment: Nega tive [...] antigen from SARS-CoV-2 in direct nasopharyngeal swab (PLOW SHAKER) specimens from individuals who are suspected of [...] Accreditation. Performed By: #### 3 4 #### [facility] [address] POC SARS COV2 ANTIGEN NEG CANCELED Normal NEGATIVE The [facility] Comment on above: Result Comment: The released value NEGATIVE was canceled by JOSE on 07/22/2021 12:28 Performed By: #### 3 4 #### [facility] [address] POC URINE PREGNANCYon 2021 Beta HCG ( test) Ql (U) Negative Normal NEGATIVE The [facility] Comment on above: Result Comment: Perf ormed in Emergency Department. Performed By: #### 8 4140 ####[facility] PORTABLE CHEST 1 VIEWon PORTABLE CHEST 1 VIEW [facility] Department of Radiology [address] [place] [id number] Patient Name: MAX BRAMBILA : 1995 Sex: F Age: Race: White Pt. Location: [facility] Patient Status: E Ordered Date: 07/20/2021 6:05:00 [...] report. Electronically signed: Parul Reilly. Transcribed by: [email or web address], User Resident: SWAPNA QUIROGA Electronically Signed by: PARUL REILLY @ 07/20/2021 06:51 AM I personally read this/these film(s) with this resident Normal The [facility] Comment on above: Order Comment: evalu ate for Infiltrates PROF 14(COMP METB)on 022 Albumin [Mass/Vol] 4.0 g/dL Normal 3.4-5.0 [facility] Comment on above: Performed By: #### C MP #### [facility] [address] [place] [address] Dr. Marilee Diaz Albumin/Globulin [Mass ratio] 1.1 {ratio} Normal [facility] Comment on above: Performed By: #### C MP #### [facility] [address] [place] [address] Dr. Marilee Diaz ALP [Catalytic activity/Vol] 83 U/L Normal 46-116 [facility] Comment on above: Performed By: #### C MP #### [facility] [address] [place] [address] Dr. Marilee Diaz ALT [Catalytic activity/Vol] 20 U/L Normal 14-59 [facility] Comment on above: Performed By: #### C MP #### [facility] [address] [address] [address] Marilee Diaz Anion gap [Moles/Vol] 12.5 mmol/L Normal [facility] Comment on above: Performed By: #### C MP #### [facility] [address] [address] [address] Marilee Diaz AST [Catalytic activity/Vol] 12 U/L Critically low 15-37 [facility] Comment on above: Performed By: #### C MP #### [facility] [address] [address] [address] Marilee Diaz Bilirubin [Mass/Vol] 0.3 mg/dL Normal 0.2-1.3 The [facility] Comment on above: Performed By: #### C MP #### [facility] [address] [address] [address] Marilee Diaz Calcium [Mass/Vol] 9.1 mg/dL Normal 8.5-10.1 [facility] Comment on above: Performed By: #### C MP #### [facility] [address] [place] [address] Dr. Marilee Diaz Chloride [Moles/Vol] 103 mmol/L Normal 98-107 The [facility] Comment on above: Performed By: #### C MP #### [facility] [address] [address] [address] Marilee Diaz CO2 [Moles/Vol] 26.2 mmol/L Normal 22.0-30.0 The [facility] Comment on above: Performed By: #### C MP #### [facility] [address] [address] [address] Marilee Diaz Creatinine [Mass/Vol] 0.63 mg/dL Normal 0.52-1.04 The [facility] Comment on above: Performed By: #### C MP #### [facility] [address] [address] [address] Marilee Diaz EGFR-AF KAZAKH >60 Normal >=60 The [facility] Comment on above: Performed By: #### C MP #### [facility] [address] [address] [address] Marilee Diaz EGFR-NON AF KAZAKH >60 Normal >=60 [facility] Comment on above: Performed By: #### C MP #### [facility] [address] [address] [address] Marilee Diaz Globulin (S) [Mass/Vol] 3.5 g/dL Normal [facility] Comment on above: Performed By: #### C MP #### [facility] [address] [address] [address] Marilee Diaz Glucose [Mass/Vol] 104 mg/dL Normal 74-106 [facility] Comment on above: Performed By: #### C MP #### [facility] [address] [address] [address] Marilee Diaz Potassium [Moles/Vol] 3.7 mmol/L Normal 3.4-5.0 [facility] Comment on above: Performed By: #### C MP #### [facility] [address] [place] [address] Dr. Marilee Diaz Protein [Mass/Vol] 7.5 g/dL Normal 6.1-8.2 [facility] Comment on above: Performed By: #### C MP #### [facility] [address] [place] [address] Dr. Marilee Diaz Sodium [Moles/Vol] 138 mmol/L Normal 137-145 [facility] Comment on above: Performed By: #### C MP #### [facility] [address] [place] [address] Dr. Marilee Diaz Urea nitrogen [Mass/Vol] 15.0 mg/dL Normal 7.0-18.0 [facility] Comment on above: Performed By: #### C MP #### [facility] [address] [address] [address] Marilee Diaz Urea nitrogen/Creatinine [Mass ratio] 23.8 mg/mg Normal [facility] Comment on above: Performed By: #### C MP #### [facility] [address] [place] [address] Dr. Marilee Diaz PROTHROMBIN TIMEon 2 INR Coag (PPP) [Relative time] 0.95 {INR} Normal 0.91-1.16 [facility] Comment on above: Result Comment: ACCC [...] CHEST 1995;[id number]. Performed By: #### 5 6101, [id number] #### [facility] [address] [facility]. [address] PT Coag (PPP) [Time] 12.7 s Normal 12.3-14.8 [facility] Comment on above: Result Comment: ALL RESULTS MUST BE INTERPRETED WITH RESPECT TO BLOOD DRAWING ARTIFACT OR DILUTION ERROR OF ANTICOAGULANT AT THE TIME OF SAMPLING. Performed By: #### 5 6101, [id number] #### [facility] [address] PROTIMEon 07-20-2021 INR Coag (PPP) [Relative time] 0.94 {INR} Normal [facility] Comment on above: Performed By: #### P T, PTT #### [facility] [address] [place] [address] Dr. Marilee Diaz INR GUIDELINES SEE BELOW Normal [facility] Comment on above: Result Comment: POLA RED INR: 2.0 - 3.0 CONDITIONS NOT LISTED BELOW 2.5 - 3.5 FOR PROSTHETIC HEART VALVE REPLACEMENT 2.5 - 3.5 RECURRENT THROMBOSIS Performed By: #### P T, PTT #### [facility] [address] [place] [address] Dr. Marilee Diaz PT Coag (PPP) [Time] 10.2 s Normal 9.0-11.6 [facility] Comment on above: Performed By: #### P T, PTT #### [facility] [address] [place] [address] Dr. Marilee Diaz PTTon 07-20-2021 aPTT Coag (Bld) [Time] 26.3 s Normal 22.3-36.2 [facility] Comment on above: Performed By: #### P T, PTT #### [facility] [address] [place] [address] Dr. Marilee Diaz Covid-19 PCR ([facility])on 12-21 SARS-CoV-2 (COVID-19) RNA FRANK+probe Ql (Unsp spec) Not detected Normal NOT DETECTED [facility] Comment on above: Result Comment: This test is not yet approved or cleared by the [place] FDA. When there are no FDA-approved or cleared tests available, and other criteria are met, FDA can make tests available under an emergency access mechanism called an Emergency Use Authorization (EUA). The EUA for this test is supported by the [place] of Health and Human Service's (HHS's) declaration [...] SARS-CoV-2. Performed By: #### C VDTBH #### [facility] [address] [place] [address] Dr. Marilee Diaz Vital Signs Date Time Vital Sign Value Performing Clinician Facility 05-20-2024 16:48-0500 Body height 149.86 cm [facility] 05-20-2024 16:48-0500 Body mass index (BMI) [Ratio] 27 kg/m2 [facility] 05-20-2024 16:48-0500 Body temperature 98.4 [degF] [facility] 05-20-2024 16:48-0500 Body weight 60.78 kg [facility] 05-20-2024 16:48-0500 Diastolic blood pressure 76 mm[Hg] [facility] 05-20-2024 16:48-0500 Heart rate 86 /min [facility] 05-20-2024 16:48-0500 Respiratory rate 14 /min [facility] 05-20-2024 16:48-0500 SaO2% (BldA) [Mass fraction] 99 % [facility] 05-20-2024 16:48-0500 Systolic blood pressure 114 mm[Hg] [facility] 05-03-2024 09:35-0500 Body mass index (BMI) [Ratio] 28.03 kg/m2 Brittany Michele DO Work Phone: [facility] 05-03-2024 09:35-0500 Body weight 62.96 kg Brittany Michele DO Work Phone: [facility] 05-03-2024 09:35-0500 Diastolic blood pressure 60 mm[Hg] Brittany Michele DO Work Phone: [facility] 05-03-2024 09:35-0500 Systolic blood pressure 110 mm[Hg] Brittany Michele DO Work Phone: [facility] 12-31-2023 15:10-0400 Body height 152.4 cm Vance Miller MD Work Phone: [facility] 12-31-2023 15:10-0400 Body mass index (BMI) [Ratio] 26.95 kg/m2 Vance Miller MD Work Phone: [facility] 12-31-2023 15:10-0400 Body temperature 98.2 [degF] Vance Miller MD Work Phone: [employer] 12-31-2023 15:10-0400 Body weight 62.6 kg Vance Miller MD Work Phone: [employer] 12-31-2023 15:10-0400 Diastolic blood pressure 70 mm[Hg] Vance Miller MD Work Phone: [employer] 12-31-2023 15:10-0400 Heart rate 72 /min Vance Miller MD Work Phone: [employer] 12-31-2023 15:10-0400 Respiratory rate 16 /min Vance Miller MD Work Phone: [employer] 12-31-2023 15:10-0400 Systolic blood pressure 110 mm[Hg] Vance Miller MD Work Phone: [employer] Encounters Encounter Date Encounter Type Care Provider Facility Start: 07-16-2024 End: 07-17-2024 Clinisync Result Encounter Brittany Michele DO Work Phone: [facility] Unsolicited Start: 07-16-2024 End: 07-17-2024 Clinisync Result Encounter Brittany Michele DO Work [...] Department Unsolicited Start: 05-20-2024 End: 05-20-2024 ambulatory [facility] Work Phone: Start: 05-20-2024 End: 05-20-2024 Patient encounter procedure [facility] Work Phone: Start: 05-03-2024 [...] Start: 01-08-2024 End: 01-08-2024 ambulatory VANCE MILLER [facility] Start: 01-08-2024 Encounter for genera l adult medical examination without abnormal findings VANCE MILLER [facility] Start: 12-31-2023 End: 12-31-2023 Patient encounter status Vance Miller MD Work Phone: [facility] [employer] [facility] Work Phone: Start: 12-31-2023 End: 12-31-2023 Periodic preventive med est patient 18-39 yrs Vance Miller MD Work Phone: [facility] Comment on above: Routine general medi charisse examination at a health care facility (Primary Dx) Start: 12-31-2023 End: 12-31-2023 ambulatory VANCE MILLER [facility] Start: 12-31-2023 Encounter for genera l adult medical examination without abnormal findings VANCE MILLER [facility] Start: 12-11-2023 End: 12-12-2023 [...] Emergency department patient visit RAMESH PHAM Facility:[facility] Start: 07-20-2021 End: 07-20-[address] CHUY KC Facility: Start: 01-09-2021 End: 01-09-[address] VANCE MILLER Facility:[facility] Procedures Date Procedure Procedure Detail Performing Clinician Start: 07-16-2024 ALL PROGESTERONE Brittany Michele DO Work Phone: Start: 06-21-2024 ALL PROGESTERONE Brittany Michele DO [...] Td Vaccines (8 - Td or Tdap) [facility] Start: 12-31-2024 Screening for malign ant neoplasm of cervix Pap Smear [facility] Start: 09-15-2024 End: 09-15-2024 Patient encounter procedure 09/15/2024 2:20 PM EDT Office Visit [facility] [address] [place] [phone] Brittany Bautista, DO [address] [place] [address] [facility] Start: 09-02-2024 End: 09-02-2024 Patient encounter procedure 09/02/2024 9:40 AM EDT Office Visit [facility] [address] [place] [phone] Brittany Bautista, DO [address] [place] [address] [facility] Start: 05-03-2024 End: 05-03-2024 Patient encounter procedure 05/03/2024 9:40 AM EST Office Visit [facility] [address] [place] [phone] Brittany Bautista, DO [address] [place] [address] Arrived [facility] Comment on above: Arrived Start: 12-31-2023 End: 12-30-2024 Glucose random or fasting Glucose random or fasting Lab Routine Routine general medical examination at a health care facility Expected: 12/31/2023, Expires: 12/30/2024 [employer] Work Phone: Comment on above: Expected: 12/31/2023 , Expires: 12/30/2024 Start: 12-27-2023 Adult BMI Screening Adult BMI Screen ing [facility] Start: 12-27-2023 Depression Screening Depression Scre ening [facility] Start: 12-27-2023 Tobacco Screening Tobacco Screening [facility] Start: 12-21-2023 COVID-19 Vaccine ( season) COVID-19 Vaccine ( season) [facility] Start: 12-21-2023 Influenza vaccination N [facility] Immunizations Immunization Date Immunization Notes Care Provider Fa cili 02-10-2023 Seasonal, quadrivale nt, recombinant, injectable influenza vaccine, preservative free Vance Miller MD Work Phone: [facility] 02-10-2023 influenza virus vaccine, unspecified formulation Brittany Bautista DO Work Phone: [facility] 02-04-2023 influenza virus vaccine, unspecified formulation Vance Miller MD Work Phone: [facility] 09-21-2021 tetanus toxoid, redu dov diphtheria toxoid, and acellular pertussis vaccine, adsorbed Vance Miller MD Work Phone: [facility] 02-09-2021 Seasonal, quadrivale nt, recombinant, injectable influenza vaccine, preservative free Vance Miller MD Work Phone: [facility] 02-10-2020 Seasonal, quadrivale nt, recombinant, injectable influenza vaccine, preservative free Vance Miller MD Work Phone: [facility] 04-08-2011 tetanus toxoid, redu dov diphtheria toxoid, and acellular pertussis vaccine, adsorbed Vance Miller MD Work Phone: [facility] 07-03-2000 diphtheria, tetanus toxoids and acellular pertussis vaccine, unspecified formulation Vance Miller MD Work Phone: [facility] 07-03-2000 measles, mumps and rubella virus vaccine Vance Miller MD Work Phone: [facility] 07-03-2000 poliovirus vaccine, inactivated Vance Miller MD Work Phone: [facility] 07-03-2000 varicella virus vaccine John Miller MD Work Phone: [facility] 09-06-1996 diphtheria, tetanus toxoids and acellular pertussis vaccine, unspecified formulation Vance Miller MD Work Phone: [facility] 09-06-1996 haemophilus influenz ae type b vaccine, conjugate unspecified formulation Vance Miller MD Work Phone: [facility] 09-06-1996 measles, mumps and rubella virus vaccine Vance Miller MD Work Phone: [facility] 02-09-1996 DTP-Haemophilus influenzae type b conjugate vaccine Vance Miller MD Work Phone: [facility] 02-09-1996 hepatitis B vaccine, pediatric or pediatric/adolescent dosage Vance Miller MD Work Phone: [facility] 02-09-1996 trivalent poliovirus vaccine, live, oral Vance Miller MD Work Phone: [facility] 1995 DTP-Haemophilus influenzae type b conjugate vaccine Vance Miller MD Work Phone: [facility] 1995 trivalent poliovirus vaccine, live, oral Vance Miller MD Work Phone: [facility] 1995 DTP-Haemophilus influenzae type b conjugate vaccine Vance Milelr MD Work Phone: [facility] 1995 hepatitis B vaccine, pediatric or pediatric/adolescent dosage Vance Miller MD Work Phone: [facility] 1995 trivalent poliovirus vaccine, live, oral Vance Miller MD Work Phone: [facility] 1995 hepatitis B vaccine, pediatric or pediatric/adolescent dosage Vance Miller MD Work Phone: [facility] Payers Date Payer Category Payer Private Health Insurance [id number] 2022 Private Health Insurance [id number] 1995 Unknown [id number] 1995 Unknown [id number] 2.16.84 [id number] 1995 Unknown [id number] 2.16.8 [id number] 1995 Unknown [id number] 2.16.8 [id number] 1995 Unknown [id number] 2.16.8 [id number] 1995 Unknown [id number] 2.16.84 [id number] 1995 Unknown [id number] 2.16.84 [id number] 1995 Unknown [id number] 2.16.84 [id number] 1959 Unknown [id number] Social History Date Type Detail Facility Start: 12-26-2022 End: 06-10-2023 Tobacco smoking status NHIS Never smoked tobacco [facility] Start: 11-03-2023 End: 05-03-2024 Alcoholic beverage intake Lifetime non-drinker (finding) [facility] Start: 05-09-2020 End: 06-10-2023 History of Social function [facility] Start: 05-09-2020 End: 06-10-2023 Tobacco use panel [facility] Start: 06-10-2023 Alcohol Comment caffeine:2-3 c ups per day [facility] Start: 1995 Sex assigned at Female [facility] Start: 2023 Gender identity Identifies as female gender (finding) [facility] Start: 05-20-2024 Sex Female (finding) [facility] Start: 12-26-2022 Tobacco use and exposure Smokeless tobacco non-user [facility] Start: 12-31-2023 Alcoholic beverage intake Current non-drinker of alcohol (finding) [facility] How hard is it for y ou to pay for the very basics like food, housing, medical care, and heating Not very hard [employer] Adolescent depressio n screening assessment [address] [facility] [address] Start: 1995 Sex assigned at Not on file [facility] [employer] [facility] History of Present illness Narrative 05-03-2024 [...] nursing note reviewed. Exam conducted with a sider mechanic present. Vitals: Estimated body mass index is [...] the original note were not included. [address] [place] [id number] SUBJECTIVE: Patient ID: Max Brambila is a [...] fasting [facility]gyn f[facility]u [facility] Dis[facility] summary note 07-31-2021 Note Date & Type Note Facility 07-31-2021 Note MR#: [id number] E [facility] Pt. 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 CONSULTATIONS: Neurology/Stroke Service. HOSPITAL COURSE: A 26-year-old female presented to [facility] Emergency Department as a hospital transfer from [facility] after being accepted by Dr. [...] of 15 with NIH 4 in [facility] Emergency Department. Labs unremarkable. Patient received [...] follow up with Cardiology, Dr. Reynolds at [facility]. The patient to set up [...] Lambert CNP Date Trans: 07/31/2021 08:55 P/tuan [id number] cc: Vance Miller M.D. [address] [facility] [phone] Chuy Kc M.D. E R Physican...do Not Send [address] [facility] [id number] [facility] Evaluation note Note Date & Type Note Facility Evaluation note Diagnosis Encounter for fertility planning documented in this encounter [facility] Evaluation note Note Date & Type Note Facility Evaluation note Diagnosis Onset Date Resolution Allergic reaction noneactive May 20, 2024 4:45pm [facility] Work Phone: Evaluation note Note Date & Type Note Facility Evaluation note Diagnosis Routine general medical examination at a health care facility- Primary documented in this encounter [employer] [facility] Instructions Attachments Note Date & Type Note Facility Instructions The following attachments cannot be sent through Care Everywhere.Yearly Physical for Adults (Malian)documented in this encounter [employer] [facility] Summary Purpose Family History No Family [...] and content) DATE CREATED AUTHOR 08/02/2021 [facility] DATE CREATED AUTHOR AUTHOR'S ORGANIZ ATION 08/02/2021 [facility] DATE CREATED AUTHOR AUTHOR'S ORGANIZ ATION 01/02/2024 [facility] DATE CREATED AUTHOR AUTHOR'S ORGANIZ ATION 01/10/2024 [facility] DATE CREATED AUTHOR AUTHOR'S ORGANIZ ATION 05/06/2024 [facility] dical Specialists [employer] Care Teams (unrecognized sec tion and content) Dry Box Tender Relationship Specialty Start Date End Date Vance Miller MD [address] [place] [address] PCP - General Family Medicine 07/01/23 Dry Box Tender Relationship Specialty Start Date End Date Vance Miller MD [address] [place] [address] PCP - General Family Medicine 07/01/23 Dry Box Tender Relationship Specialty Start Date End Date Vance Miller MD [address] [place] [address] PCP - General Family Medicine 07/01/23 Team Status: Active Member Role Status Dates Vance Miller MD Primary Care Provider Active Team Status: Inactive Member Role Status Dates Vance Miller MD Primary Care Provider Active Start: May 20, 2024 End: May 20, 2024 Yue Waller APRN Attending Provider Active Start: May 20, 2024 End: May 20, 2024 Dry Box Tender Relationship Specialty Start Date End Date Vance Miller MD [address] [place], [place] [id number] PCP - General [facility] Medicine 07/01/23 Dry Box Tender Relationship Specialty Start Date End Date Vance Miller MD [address] [place], [place] [id number] PCP - General Family Medicine 05/13/17 Dry Box Tender Relationship Specialty Start Date End Date Vance Miller MD PCP - General Family Medicine 07/01/23 Reason for Visit (unrecogniz ed section and [...] BE BASED ON THE PRIMARY CLINICAL RECORDS. [facility] [employer] [facility]. provides no warranty or guarantee of the accuracy or completeness of information in this document.
[2024-07-28 17:40] LABS: HCG Quantitative <1 mIU/mL
== END 2024-08-18 09:56 | disposition home or self-care (01) ==
LOC: LAB 16:31
PROVIDERS: PCP Family Medicine; Visit Provider Obstetrics & Gynecology
DX: N92.6 Irregular menstruation, unspecified (principal)
CPT/HCPCS: 36415; 84702